=== PATIENT | female | born 1975 | race Caucasian/White ===

== ENCOUNTER 2019-12-10 08:32 | Outpatient (REF) | payer OTHER, SELFPAY ==
--- NOTE | 2019-12-10 | MM_ITS ---
EXAMINATION: MM SCREENING DIGITAL BREAST TOMOSYNTHESIS, BILATERAL CLINICAL INFORMATION: Screening. Asymptomatic. The lifetime risk of breast cancer based on the Tyrer-Cuzick Model is 7%. COMPARISON: Mammography: 10/31/2018, 10/20/2017, 10/16/2016 TECHNIQUE: Digital breast tomosynthesis is performed in both the craniocaudal and mediolateral oblique views along with computer-aided detection (CAD). Synthesized 2D images are generated from the tomosynthesis. Additional left MLO view is provided. FINDINGS: The breasts are heterogeneously dense, which may obscure small masses (ACR BI-RADS breast composition Category c). The breast tissue composition borders on average fibroglandular. Parenchymal pattern is similar to prior studies. There are no significant masses, abnormal calcifications, or other abnormalities. IMPRESSION: No mammographic evidence of malignancy. ASSESSMENT: BI-RADS 1: Negative RECOMMENDATION: Routine annual mammography screening. This patient's information was entered into a reminder system with a target due date for their next mammogram.
== END 2019-12-10 08:33 | disposition home or self-care (01) ==
LOC: HO.MAMMO 08:32
PROVIDERS: PCP Nurse Practitioner Family; Visit Provider Nurse Practitioner Family
DX: Z12.31 Encounter for screening mammogram for malignant neoplasm of breast (principal)
CPT/HCPCS: 77063; 77067

== ENCOUNTER 2019-12-12 12:29 | Outpatient (REF) | payer OTHER, SELFPAY ==
[2019-12-12 13:10] LABS: COVID-19 Test Negative (Negative)
== END 2019-12-12 12:30 | disposition home or self-care (01) ==
LOC: HO.LAB 12:29
PROVIDERS: Visit Provider Internal Medicine
DX: Z20.828 Contact with and (suspected) exposure to other viral communicable diseases (principal)
CPT/HCPCS: 87635

== ENCOUNTER 2020-01-09 11:04 | Outpatient (REF) | payer OTHER, SELFPAY ==
[2020-01-09 11:30] LABS: COVID-19 Test Negative (Negative)
== END 2020-01-09 11:05 | disposition home or self-care (01) ==
LOC: HO.LAB 11:04
PROVIDERS: Visit Provider Internal Medicine
DX: Z20.828 Contact with and (suspected) exposure to other viral communicable diseases (principal)
CPT/HCPCS: 87635; C9803

== ENCOUNTER 2020-01-13 07:49 | Outpatient (REF) | payer OTHER, SELFPAY ==
[2020-01-13 09:38] LABS: Basophils Percent Auto 0.6 % (0-2); Eosinophils Absolute Auto 0.1 X10*3/uL (0.0-0.4); Eosinophils Percent Auto 0.9 % (0-4); Hematocrit 45.3 % (37-47); Hemoglobin 14.4 g/dl (12.0-16.0); Imm Gran Abs Auto 0.02 X10*3/uL (0.00-0.03); Imm Gran Pct Auto 0.3 % (0.0-0.4); Lymphocytes Percent Auto 45.7 % (20-40); MANUAL DIFF FLAG NO; Mean Corpuscular HGB Conc 31.8 g/dl (31.0-35.0); Mean Corpuscular Hemoglobin 26.2 pg (27.0-33.0); Mean Corpuscular Volume 82.5 fL (80-98); Mean Platelet Volume 10.4 fL (9.4-12.3); Monocytes Absolute Auto 0.6 X10*3/uL (0.1-1.2); Monocytes Percent Auto 9.6 % (2-11); Neutrophils Absolute Auto 2.8 X10*3/uL (2.0-8.3); Neutrophils Percent Auto 42.9 % (45-73); Platelet Count 314 X10*3/uL (160-400); Red Blood Count 5.49 X10*6/uL (4.20-5.50); Red Cell Distribution Width 14.8 % (11.0-16.0); White Blood Count 6.5 X10*3/uL (4.8-10.8)
[2020-01-13 10:08] LABS: Alanine Aminotransferase 25 U/L (0-31); Albumin Level 4.2 g/dL (3.5-5.0); Aspartate Amino Transferase 18 U/L (5-31); C Reactive Protein 0.14 mg/dL (< or = 0.50); Estimated Glomerular Filt Rate > 60
[2020-01-13 11:23] LABS: Erythrocyte Sedimentation Rate 7 MM/HR (0-20)
[2020-01-16 10:57] LABS: TS Negative Control Passed; TS Panel A 0; TS Panel B 0; TS Positive Control Passed; TSpotTB Negative (SeeBelow)
== END 2020-01-13 07:50 | disposition home or self-care (01) ==
LOC: HO.LAB 07:49
PROVIDERS: PCP Nurse Practitioner Family; Visit Provider Internal Medicine Rheumatology
DX: M06.9 Rheumatoid arthritis, unspecified (principal); Z79.899 Other long term (current) drug therapy
CPT/HCPCS: 36415; 82040; 82565; 84450; 84460; 85025; 85652; 86140; 86481

== ENCOUNTER 2020-01-17 06:15 | Outpatient (REF) | payer OTHER, SELFPAY ==
--- NOTE | 2020-01-17 06:20 | XR_ITS ---
EXAMINATION: XR SHOULDER, RIGHT CLINICAL INFORMATION: Fracture COMPARISON: None TECHNIQUE: AP external rotation, Grashey, scapular Y, and axillary views of the right shoulder. FINDINGS: Bone alignment is normal. No fracture or dislocation is seen. The glenohumeral joint is normal. There is mild arthritis at the acromioclavicular joint. Soft tissues are unremarkable. XR/XR shoulder RT min 2V IMPRESSION: No fracture seen. Mild arthritis at the acromioclavicular joint.
== END 2020-01-17 06:16 | disposition home or self-care (01) ==
LOC: HO.XRAY 06:15
PROVIDERS: PCP Nurse Practitioner Family; Visit Provider Internal Medicine Rheumatology
DX: M19.011 Primary osteoarthritis, right shoulder (principal)
CPT/HCPCS: 73030

== ENCOUNTER 2020-01-22 08:06 | Outpatient (REF) | payer OTHER, SELFPAY ==
[2020-01-22 11:51] LABS: Estimated Average Glucose 128 mg/dL; Hemoglobin A1c % 6.1 %
[2020-01-22 12:08] LABS: Cholesterol 175 mg/dL; HDL Cholesterol 57 mg/dL; LDL Cholesterol Calculated 97 mg/dl; Triglycerides 106 mg/dL
== END 2020-01-22 08:07 | disposition home or self-care (01) ==
LOC: HO.HMGCLDS 08:06
PROVIDERS: PCP Nurse Practitioner Family; Visit Provider Nurse Practitioner Family
DX: E11.9 Type 2 diabetes mellitus without complications (principal)
CPT/HCPCS: 80061; 83036

== ENCOUNTER 2020-02-26 13:00 | Outpatient (REF) | payer OTHER, SELFPAY ==
[2020-02-26 13:17] LABS: COVID-19 Test Negative (Negative)
== END 2020-02-26 13:01 | disposition home or self-care (01) ==
LOC: HO.LAB 13:00
PROVIDERS: Visit Provider Internal Medicine
DX: Z20.828 Contact with and (suspected) exposure to other viral communicable diseases (principal)
CPT/HCPCS: 87635; C9803

== ENCOUNTER 2020-04-23 06:20 | Outpatient (REF) | payer OTHER, SELFPAY | END 2020-04-23 06:21 | disposition home or self-care (01) | LOC: HO.LABR 06:20 | PROVIDERS: PCP Nurse Practitioner Family; Visit Provider Internal Medicine Rheumatology | DX: Z13.89 Encounter for screening for other disorder (principal) ==

== ENCOUNTER 2020-04-30 11:00 | Outpatient (RCR) | payer OTHER, SELFPAY | END 2020-04-30 13:39 | disposition home or self-care (01) | LOC: HO.PT 11:00 | PROVIDERS: PCP Nurse Practitioner Family; Visit Provider Internal Medicine Rheumatology | DX: M75.41 Impingement syndrome of right shoulder (principal) | CPT/HCPCS: 97110; 97112; 97140; 97161; 97530 ==

== ENCOUNTER 2020-08-07 06:02 | Outpatient (REF) | payer OTHER, SELFPAY ==
[2020-08-07 07:39] LABS: MANUAL DIFF FLAG NO
[2020-08-07 07:43] LABS: Basophils Percent Auto 0.4 % (0-2); Eosinophils Absolute Auto 0.1 X10*3/uL (0.0-0.4); Eosinophils Percent Auto 1.5 % (0-4); Hematocrit 41.7 % (37-47); Hemoglobin 13.5 g/dl (12.0-16.0); Lymphocytes Absolute Auto 2.7 X10*3/uL (1.2-4.9); Lymphocytes Percent Auto 59.7 % (20-40); Mean Corpuscular HGB Conc 32.4 g/dl (31.0-35.0); Mean Corpuscular Hemoglobin 26.1 pg (27.0-33.0); Mean Corpuscular Volume 80.5 fL (80-98); Mean Platelet Volume 10.1 fL (9.4-12.3); Monocytes Absolute Auto 0.6 X10*3/uL (0.1-1.2); Monocytes Percent Auto 12.2 % (2-11); Neutrophils Absolute Auto 1.2 X10*3/uL (2.0-8.3); Neutrophils Percent Auto 26.2 % (45-73); Platelet Count 316 X10*3/uL (160-400); Red Blood Count 5.18 X10*6/uL (4.20-5.50); Red Cell Distribution Width 15.2 % (11.0-16.0); White Blood Count 4.5 X10*3/uL (4.8-10.8)
[2020-08-07 08:07] LABS: Alanine Aminotransferase 21 U/L (0-31); Aspartate Amino Transferase 18 U/L (5-31); C Reactive Protein 0.92 mg/dL (< or = 0.50); Estimated Glomerular Filt Rate > 60
[2020-08-07 08:22] LABS: Erythrocyte Sedimentation Rate 12 MM/HR (0-20)
== END 2020-08-07 06:03 | disposition home or self-care (01) ==
LOC: HO.LABR 06:02
PROVIDERS: PCP Nurse Practitioner Family; Visit Provider Internal Medicine Rheumatology
DX: M06.9 Rheumatoid arthritis, unspecified (principal); Z79.899 Other long term (current) drug therapy
CPT/HCPCS: 36415; 82565; 84450; 84460; 85025; 85652; 86140

== ENCOUNTER 2020-08-14 06:04 | Outpatient (REF) | payer OTHER, SELFPAY ==
[2020-08-14 08:07] LABS: Creatinine Urine 62.53 mg/dL; Microalbum/Creatinine Ratio Ur 11.1 ug/mg cr
[2020-08-14 08:24] LABS: Alanine Aminotransferase 31 U/L (0-31); Albumin Level 4.3 g/dL (3.5-5.0); Alkaline Phosphatase 77 U/L (39-117); Anion Gap 22 (12-20); Aspartate Amino Transferase 27 U/L (5-31); Bilirubin Total 0.3 mg/dL (0.0-1.0); Blood Urea Nitrogen 23 mg/dL (9-16); Carbon Dioxide 21 mmol/L (22-29); Chloride 101 mmol/L (96-108); Cholesterol 148 mg/dL; Estimated Glomerular Filt Rate > 60; Glucose Fasting 113 mg/dL (60-99); HDL Cholesterol 33 mg/dL; LDL Cholesterol Calculated 70 mg/dl; Potassium 4.6 mmol/L (3.3-5.1); Sodium 139 mmol/L (135-145); Total Protein 8.1 g/dL (6.5-8.0); Triglycerides 227 mg/dL
[2020-08-14 08:30] LABS: TSH reflex Free T4 1.03 uIU/mL (0.32-4.0)
== END 2020-08-14 06:05 | disposition home or self-care (01) ==
LOC: HO.LAB 06:04
PROVIDERS: PCP Nurse Practitioner Family; Visit Provider Nurse Practitioner Family
DX: E11.9 Type 2 diabetes mellitus without complications (principal)
CPT/HCPCS: 36415; 80053; 80061; 82043; 84443

== ENCOUNTER 2020-09-03 08:49 | Outpatient (REF) | payer OTHER, SELFPAY ==
[2020-09-03 10:17] LABS: Estimated Average Glucose 131 mg/dL; Hemoglobin A1c % 6.2 %
[2020-09-03 10:25] LABS: Alanine Aminotransferase 30 U/L (0-31); Albumin Level 4.3 g/dL (3.5-5.0); Alkaline Phosphatase 73 U/L (39-117); Anion Gap 18 (12-20); Aspartate Amino Transferase 21 U/L (5-31); Bilirubin Total 0.3 mg/dL (0.0-1.0); Blood Urea Nitrogen 19 mg/dL (9-16); Calcium 10.4 mg/dL (8.4-10.2); Carbon Dioxide 25 mmol/L (22-29); Chloride 100 mmol/L (96-108); Cholesterol 158 mg/dL; Estimated Glomerular Filt Rate > 60; Glucose Fasting 165 mg/dL (60-99); HDL Cholesterol 47 mg/dL; LDL Cholesterol Calculated 75 mg/dl; Potassium 4.5 mmol/L (3.3-5.1); Sodium 138 mmol/L (135-145); Total Protein 7.8 g/dL (6.5-8.0); Triglycerides 182 mg/dL
== END 2020-09-03 08:50 | disposition home or self-care (01) ==
LOC: HO.LAB 08:49
PROVIDERS: PCP Nurse Practitioner Family; Visit Provider Nurse Practitioner Family
DX: E11.9 Type 2 diabetes mellitus without complications (principal)
CPT/HCPCS: 36415; 80053; 80061; 83036

== ENCOUNTER 2020-09-28 05:59 | Outpatient (REF) | payer OTHER, SELFPAY ==
[2020-09-30 11:32] LABS: Calcium (PTHI) 9.8 mg/dL (8.6-10.2); PTHI 39 pg/mL (14-64)
[2020-09-30 12:11] LABS: Calcium, Ionized 5.4 mg/dL (4.8-5.6)
== END 2020-09-28 06:00 | disposition home or self-care (01) ==
LOC: HO.LAB 05:59
PROVIDERS: PCP Nurse Practitioner Family; Visit Provider Nurse Practitioner Family
DX: E83.52 Hypercalcemia (principal)
CPT/HCPCS: 36415; 82330; 83970

== ENCOUNTER 2020-11-04 05:30 | Outpatient (REF) | payer OTHER, SELFPAY ==
--- NOTE | ~2020-11-04 | XR_ITS ---
EXAMINATION: XR HAND, RIGHT XR HAND, LEFT CLINICAL INFORMATION: Rheumatoid arthritis. COMPARISON: Right and left hand radiographs dated 03/08/2011 TECHNIQUE: AP, oblique, and lateral views of the right and left hand. FINDINGS: RIGHT HAND: No acute fracture or dislocation. Normal carpal alignment. Joint space narrowing with small marginal osteophytes at the triscaphe and 1st carpometacarpal joints, new when compared to the prior examination. No new osseous erosion. No abnormal soft tissue calcification. No periarticular osteopenia. LEFT HAND: No acute fracture or dislocation. Normal carpal alignment. Joint space narrowing with tiny marginal osteophytes at the triscaphe and 1st carpometacarpal joints. Findings are new when compared to the prior examination. No new osseous erosion. No abnormal soft tissue calcification. No periarticular osteopenia. XR/XR hand LT min 3V IMPRESSION: RIGHT HAND: Mild osteoarthritis at the triscaphe and 1st carpometacarpal joints, new when compared to the prior examination. No new osseous erosion. LEFT HAND: Mild osteoarthritis at the triscaphe and 1st carpometacarpal joints, new when compared to the prior examination. No new osseous erosion.
--- NOTE | ~2020-11-04 | XR_ITS ---
EXAMINATION: XR HAND, RIGHT XR HAND, LEFT CLINICAL INFORMATION: Rheumatoid arthritis. COMPARISON: Right and left hand radiographs dated 03/08/2011 TECHNIQUE: AP, oblique, and lateral views of the right and left hand. FINDINGS: RIGHT HAND: No acute fracture or dislocation. Normal carpal alignment. Joint space narrowing with small marginal osteophytes at the triscaphe and 1st carpometacarpal joints, new when compared to the prior examination. No new osseous erosion. No abnormal soft tissue calcification. No periarticular osteopenia. LEFT HAND: No acute fracture or dislocation. Normal carpal alignment. Joint space narrowing with tiny marginal osteophytes at the triscaphe and 1st carpometacarpal joints. Findings are new when compared to the prior examination. No new osseous erosion. No abnormal soft tissue calcification. No periarticular osteopenia. XR/XR hand RT min 3V IMPRESSION: RIGHT HAND: Mild osteoarthritis at the triscaphe and 1st carpometacarpal joints, new when compared to the prior examination. No new osseous erosion. LEFT HAND: Mild osteoarthritis at the triscaphe and 1st carpometacarpal joints, new when compared to the prior examination. No new osseous erosion.
== END 2020-11-04 05:31 | disposition home or self-care (01) ==
LOC: HO.XRAY 05:30
PROVIDERS: PCP Nurse Practitioner Family; Visit Provider Internal Medicine Rheumatology
DX: M06.9 Rheumatoid arthritis, unspecified (principal)
CPT/HCPCS: 73130

== ENCOUNTER 2020-12-10 08:53 | Outpatient (REF) | payer OTHER, SELFPAY ==
--- NOTE | ~2020-12-10 | MM_ITS ---
EXAMINATION: MM SCREENING DIGITAL BREAST TOMOSYNTHESIS, BILATERAL CLINICAL INFORMATION: Screening. Asymptomatic. The lifetime risk of breast cancer based on the Tyrer-Cuzick Model is 8%. COMPARISON: Mammography: 12/10/2019, 10/31/2018, 10/20/2017 TECHNIQUE: Digital breast tomosynthesis is performed in both the craniocaudal and mediolateral oblique views along with computer-aided detection (CAD). Synthesized 2D images are generated from the tomosynthesis. Additional left MLO view is provided. FINDINGS: The breasts are heterogeneously dense, which may obscure small masses (ACR BI-RADS breast composition Category c). Parenchymal pattern is similar to prior exams. There are scattered stable parenchymal asymmetries similar to prior studies. There is no developing density. No interval mass or architectural abnormality or abnormal calcifications. No significant changes. MM/MM tomosynthesis screening BI IMPRESSION: No mammographic evidence of malignancy. ASSESSMENT: BI-RADS 2: Benign RECOMMENDATION: Routine annual mammography screening. This patient's information was entered into a reminder system with a target due date for their next mammogram.
== END 2020-12-10 08:54 | disposition home or self-care (01) ==
LOC: HO.MAMMO 08:53
PROVIDERS: Visit Provider Nurse Practitioner Family
DX: Z12.31 Encounter for screening mammogram for malignant neoplasm of breast (principal)
CPT/HCPCS: 77063; 77067

== ENCOUNTER 2021-01-08 | Outpatient (REF) | payer OTHER, SELFPAY ==
[2021-01-08 08:52] LABS: MANUAL DIFF FLAG NO
[2021-01-08 09:06] LABS: Basophils Percent Auto 0.5 % (0-2); Eosinophils Absolute Auto 0.1 X10*3/uL (0.0-0.4); Eosinophils Percent Auto 2.3 % (0-4); Hematocrit 43.1 % (37.0-47.0); Imm Gran Abs Auto 0.02 X10*3/uL (0.00-0.03); Imm Gran Pct Auto 0.3 % (0.0-0.4); Lymphocytes Absolute Auto 3.5 X10*3/uL (1.2-4.9); Lymphocytes Percent Auto 58.4 % (20-40); Mean Corpuscular HGB Conc 32.5 g/dl (31.0-35.0); Mean Corpuscular Hemoglobin 25.8 pg (27.0-33.0); Mean Corpuscular Volume 79.4 fL (80.0-98.0); Mean Platelet Volume 9.2 fL (9.4-12.3); Monocytes Absolute Auto 0.8 X10*3/uL (0.1-1.2); Monocytes Percent Auto 13.5 % (2-11); Neutrophils Absolute Auto 1.5 x10*3/uL (2.0-8.3); Platelet Count 311 X10*3/uL (160-400); Red Blood Count 5.43 X10*6/uL (4.20-5.50); Red Cell Distribution Width 15.8 % (11.0-16.0)
[2021-01-08 09:32] LABS: Alanine Aminotransferase 30 U/L (0-31); Albumin Level 4.1 g/dL (3.5-5.0); Aspartate Amino Transferase 19 U/L (5-31); C Reactive Protein 0.33 mg/dL (< or = 0.50); Estimated Glomerular Filt Rate > 60
[2021-01-08 10:05] LABS: Erythrocyte Sedimentation Rate 11 MM/HR (0-20)
== END 2021-01-08 00:01 | disposition home or self-care (01) ==
LOC: HO.LABR
PROVIDERS: PCP Nurse Practitioner Family; Visit Provider Internal Medicine Rheumatology
DX: M06.9 Rheumatoid arthritis, unspecified (principal); Z79.899 Other long term (current) drug therapy
CPT/HCPCS: 36415; 82040; 82565; 84450; 84460; 85025; 85652; 86140

== ENCOUNTER 2021-02-11 05:18 | Outpatient (REF) | payer OTHER, SELFPAY ==
[2021-02-11 05:42] LABS: COVID-19 Test Negative (Negative); IDNOW Serial# 9DD0AD1C
== END 2021-02-11 05:19 | disposition home or self-care (01) ==
LOC: HO.ED 05:18
PROVIDERS: Visit Provider Internal Medicine
DX: Z20.822 Contact with and (suspected) exposure to COVID-19 (principal)
CPT/HCPCS: 36415; 87635

== ENCOUNTER 2021-02-16 06:29 | Outpatient (REF) | payer OTHER, SELFPAY ==
[2021-02-16 07:00] LABS: COVID-19 Test Negative (Negative)
== END 2021-02-16 06:30 | disposition home or self-care (01) ==
LOC: HO.LAB 06:29
PROVIDERS: PCP Nurse Practitioner Family; Visit Provider Internal Medicine
DX: Z20.822 Contact with and (suspected) exposure to COVID-19 (principal)
CPT/HCPCS: 36415; 87635

== ENCOUNTER 2021-03-22 07:00 | Outpatient (RCR) | payer OTHER, SELFPAY | END 2021-04-02 13:08 | disposition home or self-care (01) | LOC: HO.PT 07:00 | PROVIDERS: Visit Provider Internal Medicine Rheumatology | DX: M25.511 Pain in right shoulder (principal) | CPT/HCPCS: 97110; 97140; 97161; 97530 ==

== ENCOUNTER 2021-04-02 16:31 | Outpatient (REF) | payer OTHER, SELFPAY ==
--- NOTE | ~2021-04-02 | MR_ITS ---
EXAMINATION: MR SHOULDER WITHOUT CONTRAST, RIGHT CLINICAL INFORMATION: Right shoulder pain. COMPARISON: 01/17/2020 TECHNIQUE: MRI of the shoulder without contrast was performed on a high-field scanner. FINDINGS: ROTATOR CUFF: There is mild supraspinatus tendinosis with a small 4 mm interstitial partial tear at the insertion with associated interstitial delamination. No appreciable extension to the articular or bursal laminae. Subscapularis and infraspinatus are intact. No muscle atrophy or fatty infiltration. BICEPS: Intra-articular portion of the biceps tendon appears disrupted with corresponding distal retraction off of the distal margin of the study. CORACOACROMIAL ARCH: The undersurface of the acromion is flat with a prominent anterior subacromial spur. Moderate acromioclavicular osteoarthritis. Small volume of fluid in subacromial-subdeltoid bursa is consistent with bursitis. LABRUM/CAPSULE: Joint capsule is thickened at the axillary pouch and rotator interval. There is loss of the normal subcoracoid fat. The coracohumeral ligament is thickened and edematous. Limited labrum is diminutive, likely due to a combination of normal variation and superimposed degeneration. No discrete tears. GLENOHUMERAL JOINT/MARROW: Small marginal osteophytes are present at the glenoid. There is mild non-uniform chondral thinning at both the glenoid and humeral head. No fracture or malalignment. MR/MR shoulder RT wo con IMPRESSION: 1. Complete tear of the long head of the biceps with distal retraction, possibly chronic. 2. Mild supraspinatus tendinosis with a small 4 mm interstitial partial tear. No appreciable surfacing rotator cuff tears. 3. Capsular thickening and edema at the glenohumeral joint, most notable at the rotator interval. Although not specific, this appearance can be seen with adhesive capsulitis. 4. Moderate acromioclavicular osteoarthritis. 5. An anterior subacromial spur and mild subacromial-subdeltoid bursitis as can be seen with subacromial impingement.
== END 2021-04-02 16:32 | disposition home or self-care (01) ==
LOC: HO.MRI 16:31
PROVIDERS: Visit Provider Nurse Practitioner Family
DX: M25.511 Pain in right shoulder (principal); M19.90 Unspecified osteoarthritis, unspecified site
CPT/HCPCS: 73221

== ENCOUNTER 2021-04-12 06:33 | Outpatient (REF) | payer OTHER, SELFPAY ==
[2021-04-12 06:47] LABS: MANUAL DIFF FLAG NO
[2021-04-12 07:28] LABS: Basophils Percent Auto 0.6 % (0-2); Eosinophils Absolute Auto 0.1 X10*3/uL (0.0-0.4); Eosinophils Percent Auto 1.3 % (0-4); Hematocrit 43.2 % (37.0-47.0); Hemoglobin 13.9 g/dl (12.0-16.0); Imm Gran Abs Auto 0.02 X10*3/uL (0.00-0.03); Imm Gran Pct Auto 0.4 % (0.0-0.4); Lymphocytes Absolute Auto 2.5 X10*3/uL (1.2-4.9); Mean Corpuscular HGB Conc 32.2 g/dl (31.0-35.0); Mean Corpuscular Volume 80.9 fL (80.0-98.0); Mean Platelet Volume 9.9 fL (9.4-12.3); Monocytes Absolute Auto 0.7 X10*3/uL (0.1-1.2); Monocytes Percent Auto 13.1 % (2-11); Neutrophils Absolute Auto 2.1 x10*3/uL (2.0-8.3); Neutrophils Percent Auto 38.6 % (45-73); Platelet Count 337 X10*3/uL (160-400); Red Blood Count 5.34 X10*6/uL (4.20-5.50); White Blood Count 5.4 X10*3/uL (4.8-10.8)
[2021-04-12 07:35] LABS: Estimated Average Glucose 131 mg/dL; Hemoglobin A1c % 6.2 %
[2021-04-12 07:51] LABS: Alanine Aminotransferase 24 U/L (0-31); Albumin Level 4.2 g/dL (3.5-5.0); Aspartate Amino Transferase 19 U/L (5-31); C Reactive Protein 0.33 mg/dL (< or = 0.50); Estimated Glomerular Filt Rate > 60
[2021-04-12 07:54] LABS: Alanine Aminotransferase 23 U/L (0-31); Albumin Level 4.1 g/dL (3.5-5.0); Alkaline Phosphatase 71 U/L (39-117); Anion Gap 13 (12-20); Aspartate Amino Transferase 19 U/L (5-31); Bilirubin Total 0.3 mg/dL (0.0-1.0); Blood Urea Nitrogen 16 mg/dL (9-16); Calcium 10.3 mg/dL (8.4-10.2); Carbon Dioxide 27 mmol/L (22-29); Chloride 102 mmol/L (96-108); Cholesterol 148 mg/dL; Estimated Glomerular Filt Rate > 60; Glucose Fasting 116 mg/dL (60-99); HDL Cholesterol 39 mg/dL; LDL Cholesterol Calculated 76 mg/dl; Potassium 4.4 mmol/L (3.3-5.1); Sodium 138 mmol/L (135-145); Total Protein 7.9 g/dL (6.5-8.0); Triglycerides 168 mg/dL
[2021-04-12 08:16] LABS: TSH reflex Free T4 1.92 uIU/mL (0.32-4.0)
[2021-04-12 08:30] LABS: Erythrocyte Sedimentation Rate 13 MM/HR (0-20)
[2021-04-12 08:39] LABS: Appearance Urine HAZY; Color Urine YELLOW; Glucose Urine UA >=1000 MG/DL (NEG); Leukocyte Esterase Urine NEG (NEG); Nitrite Urine POS (NEG); Specific Gravity - Urine >= 1.030 (1.005-1.025); UACC Culture Trigger YES; Urine Blood NEG (NEG); Urine Ketones NEG (NEG); Urine Protein NEG (NEG-TRACE)
[2021-04-12 09:10] LABS: RBC Urine 0-2 /HPF (0)
[2021-04-12 09:11] LABS: Bacteria Urine 3+ /LPF; Squamous Epithelial Cell Urine 2+ /LPF
== END 2021-04-12 06:34 | disposition home or self-care (01) ==
LOC: HO.LAB 06:33
PROVIDERS: Absent Provider Internal Medicine Rheumatology; PCP Nurse Practitioner Family; Visit Provider Nurse Practitioner Family
DX: M06.9 Rheumatoid arthritis, unspecified (principal); E11.9 Type 2 diabetes mellitus without complications; Z79.899 Other long term (current) drug therapy
CPT/HCPCS: 36415; 80053; 80061; 81001; 81003; 82040; 82565; 83036; 84443; 84450; 84460; 85025; 85652; 86140; 87086; 87088; 87186

== ENCOUNTER 2021-04-13 07:12 | Outpatient (REF) | payer OTHER, SELFPAY ==
--- NOTE | ~2021-04-13 | XR_ITS ---
EXAMINATION: XR SHOULDER, RIGHT CLINICAL INFORMATION: Shoulder pain. COMPARISON: MR shoulder 04/02/2021. TECHNIQUE: Three views of the right shoulder. FINDINGS: The bones and soft tissues are normal. No fracture. Glenohumeral and acromioclavicular alignment is anatomic. Some mild degenerative changes are present at the AC joint. No abnormal soft tissue calcifications. The extensive right shoulder disease seen on the very recent shoulder MRI cannot be appreciated on the plain films. XR/XR shoulder RT min 2V IMPRESSION: Acromioclavicular arthritis. The glenohumeral joint appears intact. Please see report of recent shoulder MR for the severe disease reported at that time.
== END 2021-04-13 07:13 | disposition home or self-care (01) ==
LOC: HO.HOSX 07:12
PROVIDERS: Visit Provider Physician Assistant
DX: M75.101 Unspecified rotator cuff tear or rupture of right shoulder, not specified as traumatic (principal)
CPT/HCPCS: 20610; 73030; J1040

== ENCOUNTER → 2021-04-15 11:02 | Outpatient (BNVA) | payer OTHER, SELFPAY | PROVIDERS: PCP Nurse Practitioner Family; Visit Provider Orthopaedic Surgery ==

== ENCOUNTER → 2021-07-16 11:12 | Outpatient (BNVA) | payer OTHER, SELFPAY | PROVIDERS: PCP Nurse Practitioner Family; Visit Provider Physician Assistant | DX: M75.101 Unspecified rotator cuff tear or rupture of right shoulder, not specified as traumatic (principal) ==

== ENCOUNTER 2021-07-21 06:42 | Day surgery (SDC) | payer OTHER, SELFPAY ==
[2021-07-16 12:16] VITALS: BMI 38.7
--- NOTE | 2021-07-20 07:59 | P.CONAN_ITS ---
Documented by User: Nataliia Mas NP 07/20/21 08:01 HPI - Anesthesia Eval Consult details Narrative: 46yo F for Right Shoulder Arthroscopy PMFSH Active Problems Active Problems: All Active Problems (Updated 06/24/21 @ 23:18 by Liliana Linares CNP) Wheezing (Acute) Upper respiratory infection (Acute) Painful arc syndrome of right shoulder (Acute) Osteoarthritis (Acute) Right shoulder pain (Acute) Skin pustule (Acute) Serum calcium elevated (Acute) Fungal dermatitis (Acute) Leukocytosis (Acute) Rheumatoid arthritis (Acute) Diabetes (Acute) Past Medical History Medical History (Updated 07/21/21 @ 07:14 by Ladonna Grewal RN) Dyslipidemia Ear infection Hidradenitis suppurativa HTN (hypertension) Lymphocytosis Osteoarthritis Rheumatoid arthritis Tinea unguium Family History Family History Father Colon cancer Diabetes mellitus HTN (hypertension) Mother Diabetes mellitus Daughter No problems noted. 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[facility] [place] Meds Allergies Allergy/AdvReac Type Severity Reaction Status Date / Time nut - unspecified [nut] Allergy Intermediate HIVES Verified 07/16/21 11:27 aspirin [ASPIRIN] Allergy Unknown ORAL Verified 07/16/21 11:27 HIVES, hives ibuprofen [IBUPROFEN] Allergy Unknown ORAL Verified 07/16/21 11:27 HIVES, hives peanut Allergy Unknown hives Verified 07/16/21 11:27 pineapple Allergy Unknown hioves Verified 07/16/21 11:27 tree nut Allergy Unknown hives Verified 07/16/21 11:27 lisinopril [LISINOPRIL] AdvReac Unknown DIFFICULTY Verified 07/16/21 11:27 BREATHING COUGH, cough methotrexate AdvReac Unknown LFTs Verified 07/16/21 11:27 elevated Home Medications Medication Instructions Recorded Confirmed Last Taken Type baclofen 5 mg tablet 5 mg PO DAILY PRN 01/22/20 07/15/21 Unknown History adalimumab 40 mg/0.4 mL 40 mg SUBCUT Q2W 11/12/20 07/15/21 Unknown History subcutaneous pen kit (Humira(CF) Pen) melatonin 5 mg tablet 5 mg PO BEDTIME 02/16/21 07/15/21 Unknown History Exam Exam Date and Time: July 20, 2021 0759 Height,Weight and Vital Signs: Height 5 ft 4 in Weight 102.512 kg Pertinent Lab Results Pertinent Lab Results: Laboratory Tests 04/12/21 04/12/21 06:45 06:45 WBC 5.4 Hgb 13.9 Hct 43.2 Plt Count 337 Sodium 138 Potassium 4.4 Chloride 102 Carbon Dioxide 27 BUN 16 Creatinine 0.78 Assessment and Plan Assessment Anesthesia Assessment: Chart Reviewed Documented by User: Ashish Vásquez MD 07/21/21 17:39 HPI - Anesthesia Eval Consult details Narrative: 46yo F for Right Shoulder Arthroscopy recent ear infection [facility] Past Medical History Medical History (Updated 07/21/21 @ 07:14 by Ladonna Grewal RN) Dyslipidemia Ear infection Hidradenitis suppurativa HTN (hypertension) Lymphocytosis Osteoarthritis Rheumatoid arthritis Tinea unguium Family History Family History Father Colon cancer Diabetes mellitus HTN (hypertension) Mother Diabetes mellitus Daughter No problems noted. Other Substance use disorder Family history of problems with anesthesia: No Surgical History Surgical History H/O total hysterectomy with bilateral salpingo-oophorectomy (BSO) History of axillary surgery History of section History of endometrial biopsy History of Problems with Anesthesia: No Social History Social History Housing: House Alcohol intake: current Alcohol intake frequency: holidays/special occasions only Patient Tobacco Use Status: Current everyday Tobacco user Cigarettes Per Day: 4 Years Smoked: 15 years old e-Cigarette/Vaping Use: Never Used Current occupational status: employed 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[employer] [place] Meds Allergies Allergy/AdvReac Type Severity Reaction Status Date / Time nut - unspecified [nut] Allergy Intermediate HIVES Verified 07/16/21 11:27 aspirin [ASPIRIN] Allergy Unknown ORAL Verified 07/16/21 11:27 HIVES, hives ibuprofen [IBUPROFEN] Allergy Unknown ORAL Verified 07/16/21 11:27 HIVES, hives peanut Allergy Unknown hives Verified 07/16/21 11:27 pineapple Allergy Unknown hioves Verified 07/16/21 11:27 tree nut Allergy Unknown hives Verified 07/16/21 11:27 lisinopril [LISINOPRIL] AdvReac Unknown DIFFICULTY Verified 07/16/21 11:27 BREATHING COUGH, cough methotrexate AdvReac Unknown LFTs Verified 07/16/21 11:27 elevated Home Medications Medication Instructions Recorded Confirmed Last Taken Type baclofen 5 mg tablet 5 mg PO DAILY PRN 01/22/20 07/15/21 Unknown History adalimumab 40 mg/0.4 mL 40 mg SUBCUT Q2W 11/12/20 07/15/21 Unknown History subcutaneous pen kit (Humira(CF) Pen) melatonin 5 mg tablet 5 mg PO BEDTIME 02/16/21 07/15/21 Unknown History Exam Airway Mallampati Class: II TM Dist: >3cm Neck ROM: Full Loose/Missing/Broken Teeth: Yes (Poor dentition ) Heart: s1 , S2 Lungs: b/l breath sounds Assessment and Plan Assessment Anesthesia Assessment: Anesthesia Plan Discussed Final Anesthetic Review Family History of Problems with Anesthesia: No History of Problems with Anesthesia: No NPO: Yes ASA Class: II Final Preanesthetic Review: Meds/Allgs Chart Reviewed, Consent Obtained/Reviewed and Anes Risks/Benef Reviewed Patient Risk: Intermediate Procedure Risk: Intermediate Anesthetic Plan Anesthetic Plan: GA and Regional Block Disposition: Standard PACU
[2021-07-21] VITALS (8 sets, daily range): BP systolic 104–138; BP diastolic 60–99; PULSE 89–96; RESP 12–18; TEMP 36.1–36.6; O2SAT 94–99
[2021-07-21 07:02] LABS: Glucose, Whole Blood 129 mg/dL (60-115)
[2021-07-21] MEDS: Lactated Ringers 1,000 ML 100 ML IVCONT (07:25)
--- NOTE | 2021-07-21 08:40 | PC.NURSE ---
regional block iniated by anesthesia pt tolerated well timeout complted prior
--- NOTE | 2021-07-21 10:45 | PM.OP ---
Brief Operative Note Date of Service: 07/21/21 Pre-op diagnosis: right shoulder biceps tear with partial thickness rtc tear Post-op diagnosis: other (tear subscapularis, labral tear, sub acromial impingement, ACJ OA) Procedure: right shoulder with repair subscapularis, labral debridement, sub acromial decompression and distal clavicle excision Implants: [employer] and Nephew knotless raptor 5.0 Surgeon: Misbah Stratton MD Anesthesia: GETA and regional Was an Clinic Assistant used for this Procedure?: Yes Clinic Assistant: Inna Hopson Estimated blood loss (mL): 20 IV fluids (mL): 800 Pathology: none sent Condition: stable Disposition: PACU
--- NOTE | 2021-07-23 15:28 | W.PM.OPN ---
Operative Note Operative Note Date of Service: 07/21/21 Narrative: Date of Service: 07/21/21 Pre-op diagnosis: right shoulder biceps tear with partial thickness rtc tear Post-op diagnosis: other (tear subscapularis, labral tear, sub acromial impingement, ACJ OA) Procedure: right shoulder with repair subscapularis, labral debridement, sub acromial decompression and distal clavicle excision Implants: Pisano and Nephew knotless raptor 5.0 Surgeon: Misbah Stratton MD Anesthesia: GETA and regional Was an Enterprise Application Architect used for this Procedure?: Yes Enterprise Application Architect: Inna Hopson Estimated blood loss (mL): 20 IV fluids (mL): 800 Pathology: none sent Condition: stable Disposition: PACU Procedure in detail: Patient was brought to the operating room and placed the the beach chair position. All bony prominences were well padded and the limb was prepped and draped in standard sterile fashion. A time out was called to identify proper site, proper procedure and proper surgeon. IV antibiotics per weight were administered. I began by making a posterolateral stab incision with a 15 blade. A blunt trochar was placed into the glenohumeral joint and I insufflated the joint with saline and a 30 degree arthroscope was placed. I established an outside- in anterior portal just distal to the biceps tendon. I then began my inspection of the glenohumeral joint. The joint was then examined. There was synovitis of the anterior interval and an intact undersurface of the rotator cuff with a small loose body in the inferior gutter. There was a high-grade partial tear of the humeral insertion of the subscapularis. There was a circumferential labral fraying and a absent biceps tendon. I debrided the bed of the subscapularis and then placed 3 looped sutures through the retracted and was able to reduce this to its insertion with a single 5 point of 0 not less suture anchor (Pisano and Nephew). I debrided the labrum circumferentially and then turned my attention to the subacromial space. I then removed the trochar and entered the subacromial space. A direct lateral portal was then established and I performed a bursectomy. The cuff was then examined. There was bursitis of the subacromial space with subacromial spurring. A 5 mm subacromial decompression was performed via lateral portal and this was followed by a 5 mm distal clavicle excision via an anterior portal. Once I was happy with the extent of decompression and distal clavicle excision my final photographs were taken. All instrumentation was then removed portals were closed with nylon. Patient was placed in a sterile dressing extubated brought to the recovery room stable condition. There were no known complications.
== END 2021-07-21 10:30 | disposition home or self-care (01) ==
PROVIDERS: PCP Nurse Practitioner Family; Visit Provider Orthopaedic Surgery
PROC: (CPT 29805; principal; 2021-07-21 08:40)
DX: M75.101 Unspecified rotator cuff tear or rupture of right shoulder, not specified as traumatic (principal); M75.41 Impingement syndrome of right shoulder; M19.011 Primary osteoarthritis, right shoulder; M06.9 Rheumatoid arthritis, unspecified; I10 Essential (primary) hypertension; E78.5 Hyperlipidemia, unspecified; D72.820 Lymphocytosis (symptomatic); B36.9 Superficial mycosis, unspecified; B35.1 Tinea unguium; E11.9 Type 2 diabetes mellitus without complications; Z79.899 Other long term (current) drug therapy; Z88.8 Allergy status to other drugs, medicaments and biological substances; F17.210 Nicotine dependence, cigarettes, uncomplicated
CPT/HCPCS: 29827; 29826; 29824; 29822; 82947; C1713; J0171; J0690; J1100; J2250; J2370; J2405; J2795; J3010

== ENCOUNTER → 2021-07-29 14:19 | Outpatient (BNVA) | payer OTHER, SELFPAY | PROVIDERS: PCP Nurse Practitioner Family; Visit Provider Orthopaedic Surgery | DX: Z13.89 Encounter for screening for other disorder (principal) ==

== ENCOUNTER 2021-09-11 15:27 | Outpatient (REF) | payer OTHER, SELFPAY ==
[2021-09-11 16:20] LABS: Influenza A PCR NEGATIVE (Negative); Influenza B PCR NEGATIVE (Negative); Resp Syncy Virus RNA Qual PCR NEGATIVE (Negative); SARS COV2 PCR INHOUSE NEGATIVE (Negative)
== END 2021-09-11 15:28 | disposition home or self-care (01) ==
LOC: HO.LNP 15:27
PROVIDERS: Visit Provider Physician Assistant Medical
DX: Z20.822 Contact with and (suspected) exposure to COVID-19 (principal); R05.9 Cough, unspecified
CPT/HCPCS: 0241U

== ENCOUNTER 2021-10-11 09:07 | Outpatient (REF) | payer OTHER, SELFPAY ==
[2021-10-11 09:28] LABS: MANUAL DIFF FLAG NO
[2021-10-11 10:07] LABS: Basophils Percent Auto 0.5 % (0-2); Eosinophils Absolute Auto 0.1 X10*3/uL (0.0-0.4); Eosinophils Percent Auto 0.9 % (0-4); Hematocrit 44.6 % (37.0-47.0); Hemoglobin 13.9 g/dl (12.0-16.0); Imm Gran Abs Auto 0.04 X10*3/uL (0.00-0.03); Imm Gran Pct Auto 0.6 % (0.0-0.4); Lymphocytes Absolute Auto 3.4 X10*3/uL (1.2-4.9); Lymphocytes Percent Auto 52.2 % (20-40); Mean Corpuscular HGB Conc 31.2 g/dl (31.0-35.0); Mean Corpuscular Hemoglobin 24.2 pg (27.0-33.0); Mean Corpuscular Volume 77.7 fL (80.0-98.0); Mean Platelet Volume 9.9 fL (9.4-12.3); Monocytes Absolute Auto 0.9 X10*3/uL (0.1-1.2); Monocytes Percent Auto 14.3 % (2-11); Neutrophils Absolute Auto 2.1 x10*3/uL (2.0-8.3); Neutrophils Percent Auto 31.5 % (45-73); Platelet Count 340 X10*3/uL (160-400); Red Blood Count 5.74 X10*6/uL (4.20-5.50); Red Cell Distribution Width 16.7 % (11.0-16.0); White Blood Count 6.6 X10*3/uL (4.8-10.8)
[2021-10-11 10:22] LABS: Alanine Aminotransferase 30 U/L (0-31); Albumin Level 4.1 g/dL (3.5-5.0); Aspartate Amino Transferase 21 U/L (5-31); C Reactive Protein 0.34 mg/dL (< or = 0.50); Estimated Glomerular Filt Rate > 60
[2021-10-11 11:34] LABS: Erythrocyte Sedimentation Rate 7 MM/HR (0-20)
== END 2021-10-11 09:08 | disposition home or self-care (01) ==
LOC: HO.LABR 09:07
PROVIDERS: PCP Nurse Practitioner Family; Visit Provider Internal Medicine Rheumatology
DX: M06.9 Rheumatoid arthritis, unspecified (principal); Z79.899 Other long term (current) drug therapy
CPT/HCPCS: 36415; 82040; 82565; 84450; 84460; 85025; 85652; 86140

== ENCOUNTER 2021-12-08 07:00 | Outpatient (RCR) | payer OTHER, SELFPAY ==
--- NOTE | 2021-07-29 15:39 | MHC.PT.EP ---
[facility] [place] Office [place] Office [place] Office [address] Troy Watters [address] [phone] F: [phone] F: [phone] F: [phone] F: [phone] Physical Therapy Plan of Care Date of Evaluation: Date of Surgery: 07/21/21 Diagnosis: R subscap repair, labral debridement, SAD, distal clavicle excision on 07/21/21 Assessment: pt presents to physical therapy with pain, decreased range of motion, decreased strength, impaired functional mobility, impaired postural awareness, and gait deviations. pt is a good candidate for skilled PT due to age, potential remediation of impairments, typical disease/condition progression and prognosis, comorbidities, and motivation. pt would benefit from tailored strengthening and stretching exercise program, functional training, gait training, postural re-training, neuromuscular re-education, modalities as needed for pain, equipment safety demonstration. Frequency and Duration: The patient will be seen 2x/wk for 16 wks Short Term Goals: pt will be I w/ HEP to promote self-management of post-operative status. pt will be mod I w/ donning/doffing sling to promote optimal healing and joint protection following post-operative state. pt will improve R shoulder ER PROM at neutral to at least 25* to progress per protocol. Shelter Goals: pt will improve R shoulder strength to at least 4/5 in flexion and abduction to promote ease for reaching objects on higher shelves. pt will report a statistically significant improvement in self-reported outcome measure, SPADI, to promote return to PLOF. pt will lift and carry 10# object by her side 4 x 20' to promote return to carrying groceries. Treatment Plan: Modalities to reduce pain, spasms and effusion. Manual therapy to restore motion and function. Therapeutic exercise to improve strength and flexibility. Neuromuscular re-education for posture and balance. Therapeutic activities to return to functional activities of daily living. Electronically signed by: Sravani Mccullough PT, DPT Please sign and return to therapist. Thank you for your referral.
--- NOTE | 2021-12-08 08:07 | MHC.PT.DC ---
[facility] [place] Office [place] Office [place] Office [address] Troy Watters [address] [phone] F: [phone] F: [phone] F: [phone] F: [phone] Physical Therapy Discharge Report Diagnosis: R subscap repair, labral debridement, SAD, distal clavicle excision on 07/21/21 Date of Surgery: 07/21/21 Date of Evaluation: 07/29/21 Date of Discharge: 12/08/21 Treatments to Date: 23 Cancellations to Date: 11 No Shows to Date: 0 Discharge Status: Achieved Goals Improved Function Independent with HEP Discharge Summary: AT 20 WKS POST OP -Pt HAS MET HER PT GOALS , ULTIMATELY OF DONNING/DOFFING HER BRA POSTERIORLY- SHE HAS RESUMED REG ADLs AND WORK TASKS AND HAS REMAINED SX FREE IN Rt SH; WFL STRENGTH AND AROM Rt UE, APPROP POSTURAL AWARENESS AND SELF-CORRECTION, AND SHE IS MOTIVATED AND COMPLIANT W HEP. HER SPADI SCORE WAS 4/130 AT D/C. Electronically signed by: FRANCISCO JAVIER JURADO,PT Please sign and return to therapist. Thank you for your referral.
== END 2021-12-08 08:07 | disposition home or self-care (01) ==
LOC: HO.PT 07:00
PROVIDERS: Visit Provider Physician Assistant
DX: M75.101 Unspecified rotator cuff tear or rupture of right shoulder, not specified as traumatic (principal)
CPT/HCPCS: 97110; 97140; 97161; 97530

== ENCOUNTER 2021-12-23 07:45 | Outpatient (REF) | payer OTHER, SELFPAY ==
--- NOTE | ~2021-12-23 | MM_ITS ---
EXAMINATION: MM SCREENING DIGITAL BREAST TOMOSYNTHESIS, BILATERAL CLINICAL INFORMATION: Screening. Asymptomatic. The lifetime risk of breast cancer based on the Tyrer-Cuzick Model is 8.3%. COMPARISON: Mammography: December 10, 2020 and studies dating back to September 08, 2015 TECHNIQUE: Digital breast tomosynthesis is performed in both the craniocaudal and mediolateral oblique views along with computer-aided detection (CAD). Synthesized 2D images are generated from the tomosynthesis. FINDINGS: There are scattered areas of fibroglandular density (ACR BI-RADS breast composition Category b). There are no significant masses, abnormal calcifications, or other abnormalities. MM/MM tomosynthesis screening BI IMPRESSION: No significant changes from prior exam. ASSESSMENT: BI-RADS 1: Negative RECOMMENDATION: Routine annual mammography screening. This patient's information was entered into a reminder system with a target due date for their next mammogram.
== END 2021-12-23 07:46 | disposition home or self-care (01) ==
LOC: HO.MAMMO 07:45
PROVIDERS: PCP Nurse Practitioner Family; Visit Provider Nurse Practitioner Family
DX: Z12.31 Encounter for screening mammogram for malignant neoplasm of breast (principal)
CPT/HCPCS: 77063; 77067

== ENCOUNTER 2022-03-02 06:02 | Outpatient (REF) | payer OTHER, SELFPAY ==
[2022-03-02 06:26] LABS: MANUAL DIFF FLAG NO
[2022-03-02 07:37] LABS: Basophils Percent Auto 0.7 % (0-2); Eosinophils Absolute Auto 0.1 X10*3/uL (0.0-0.4); Eosinophils Percent Auto 0.9 % (0-4); Hematocrit 42.7 % (37.0-47.0); Hemoglobin 13.6 g/dl (12.0-16.0); Imm Gran Abs Auto 0.03 X10*3/uL (0.00-0.03); Imm Gran Pct Auto 0.5 % (0.0-0.4); Lymphocytes Absolute Auto 2.6 X10*3/uL (1.2-4.9); Lymphocytes Percent Auto 45.2 % (20-40); Mean Corpuscular HGB Conc 31.9 g/dl (31.0-35.0); Mean Corpuscular Hemoglobin 25.4 pg (27.0-33.0); Mean Corpuscular Volume 79.8 fL (80.0-98.0); Mean Platelet Volume 9.9 fL (9.4-12.3); Monocytes Absolute Auto 1.1 X10*3/uL (0.1-1.2); Monocytes Percent Auto 18.6 % (2-11); Neutrophils Absolute Auto 1.9 x10*3/uL (2.0-8.3); Neutrophils Percent Auto 34.1 % (45-73); Platelet Count 264 X10*3/uL (160-400); Red Blood Count 5.35 X10*6/uL (4.20-5.50); Red Cell Distribution Width 15.8 % (11.0-16.0); White Blood Count 5.7 X10*3/uL (4.8-10.8)
[2022-03-02 07:56] LABS: Alanine Aminotransferase 33 U/L (0-31); Albumin Level 4.1 g/dL (3.5-5.0); Aspartate Amino Transferase 25 U/L (5-31); C Reactive Protein 1.27 mg/dL (< or = 0.50); Estimated Glomerular Filt Rate > 60
[2022-03-02 08:23] LABS: Erythrocyte Sedimentation Rate 33 MM/HR (0-20)
== END 2022-03-02 06:03 | disposition home or self-care (01) ==
LOC: HO.LABR 06:02
PROVIDERS: PCP Nurse Practitioner Family; Visit Provider Internal Medicine Rheumatology
DX: M06.9 Rheumatoid arthritis, unspecified (principal); Z79.899 Other long term (current) drug therapy
CPT/HCPCS: 36415; 82040; 82565; 84450; 84460; 85025; 85652; 86140

== ENCOUNTER 2022-06-30 09:23 | Outpatient (REF) | payer OTHER, SELFPAY ==
[2022-06-30 10:25] LABS: Basophils Percent Auto 0.9 % (0-2); Eosinophils Percent Auto 0.9 % (0-4); Hematocrit 42.1 % (37.0-47.0); Hemoglobin 13.4 g/dl (12.0-16.0); Imm Gran Abs Auto 0.01 X10*3/uL (0.00-0.03); Imm Gran Pct Auto 0.3 % (0.0-0.4); Lymphocytes Absolute Auto 2.2 X10*3/uL (1.2-4.9); Lymphocytes Percent Auto 61.3 % (20-40); MANUAL DIFF FLAG SCAN; Mean Corpuscular HGB Conc 31.8 g/dl (31.0-35.0); Mean Corpuscular Hemoglobin 25.3 pg (27.0-33.0); Mean Corpuscular Volume 79.4 fL (80.0-98.0); Mean Platelet Volume 9.4 fL (9.4-12.3); Monocytes Absolute Auto 0.7 X10*3/uL (0.1-1.2); Monocytes Percent Auto 20.2 % (2-11); Neutrophils Absolute Auto 0.6 x10*3/uL (2.0-8.3); Neutrophils Percent Auto 16.4 % (45-73); Platelet Count 273 X10*3/uL (160-400); Red Cell Distribution Width 18.1 % (11.0-16.0); SCAN SMEAR FLAG 1; White Blood Count 3.5 X10*3/uL (4.8-10.8)
[2022-06-30 11:03] LABS: SLIDE REVIEW VERIFIED
[2022-06-30 11:09] LABS: Erythrocyte Sedimentation Rate 25 MM/HR (0-20)
[2022-06-30 11:11] LABS: Appearance Urine Cloudy; Color Urine Yellow; Glucose Urine UA >=1000 mg/dL (Negative); Leukocyte Esterase Urine Negative (Negative); Nitrite Urine Negative (Negative); Specific Gravity - Urine >= 1.030 (1.005-1.025); UMIC TRIGGER UACC YES; Urine Blood Negative (Negative); Urine Ketones Trace mg/dL (Negative); Urine Protein Trace mg/dL (Neg-Trace)
[2022-06-30 11:19] LABS: C Reactive Protein 0.32 mg/dL (< or = 0.50)
[2022-06-30 11:38] LABS: Alanine Aminotransferase 26 U/L (0-31); Albumin Level 4.1 g/dL (3.5-5.0); Alkaline Phosphatase 81 U/L (39-117); Anion Gap 13 (12-20); Aspartate Amino Transferase 21 U/L (5-31); Bilirubin Total 0.4 mg/dL (0.0-1.0); Blood Urea Nitrogen 16 mg/dL (9-16); Calcium 9.9 mg/dL (8.4-10.2); Carbon Dioxide 25 mmol/L (22-29); Chloride 106 mmol/L (96-108); Cholesterol 148 mg/dL; Estimated Glomerular Filt Rate > 60; Glucose Fasting 122 mg/dL (60-99); HDL Cholesterol 38 mg/dL; LDL Cholesterol Calculated 73 mg/dl; Potassium 4.1 mmol/L (3.3-5.1); Sodium 140 mmol/L (135-145); TSH reflex Free T4 1.36 uIU/mL (0.32-4.0); Total Protein 8.4 g/dL (6.5-8.0); Triglycerides 187 mg/dL
[2022-06-30 11:46] LABS: Bacteria Urine 4+ (None Seen); Hyaline Casts Urine 0-2 /LPF (0-2); WBC Urine 0-5 /HPF (0-5)
[2022-06-30 12:13] LABS: Creatinine Urine 112.07 mg/dL; Microalbum/Creatinine Ratio Ur 28.5 ug/mg cr
== END 2022-06-30 09:24 | disposition home or self-care (01) ==
LOC: HO.LAB 09:23
PROVIDERS: Internal Medicine Rheumatology; PCP Nurse Practitioner Family; Visit Provider Nurse Practitioner Family
DX: Z00.00 Encounter for general adult medical examination without abnormal findings (principal); E11.9 Type 2 diabetes mellitus without complications; M06.9 Rheumatoid arthritis, unspecified; Z79.899 Other long term (current) drug therapy
CPT/HCPCS: 36415; 80053; 80061; 81001; 81003; 82043; 84153; 84443; 85025; 85652; 86140

== ENCOUNTER 2022-07-19 07:16 | Outpatient (REF) | payer OTHER, SELFPAY ==
[2022-07-19 08:28] LABS: Basophils Percent Auto 0.8 % (0-2); Eosinophils Absolute Auto 0.1 X10*3/uL (0.0-0.4); Eosinophils Percent Auto 1.5 % (0-4); Hematocrit 43.3 % (37.0-47.0); Hemoglobin 13.5 g/dl (12.0-16.0); Imm Gran Abs Auto 0.01 X10*3/uL (0.00-0.03); Imm Gran Pct Auto 0.3 % (0.0-0.4); Lymphocytes Absolute Auto 2.5 X10*3/uL (1.2-4.9); Lymphocytes Percent Auto 63.2 % (20-40); MANUAL DIFF FLAG SCAN; Mean Corpuscular HGB Conc 31.2 g/dl (31.0-35.0); Mean Corpuscular Hemoglobin 25.3 pg (27.0-33.0); Mean Corpuscular Volume 81.2 fL (80.0-98.0); Mean Platelet Volume 10.2 fL (9.4-12.3); Monocytes Absolute Auto 0.8 X10*3/uL (0.1-1.2); Monocytes Percent Auto 20.1 % (2-11); Neutrophils Absolute Auto 0.6 x10*3/uL (2.0-8.3); Neutrophils Percent Auto 14.1 % (45-73); Platelet Count 244 X10*3/uL (160-400); Red Blood Count 5.33 X10*6/uL (4.20-5.50); Red Cell Distribution Width 17.5 % (11.0-16.0); SCAN SMEAR FLAG 1
[2022-07-19 08:53] LABS: SLIDE REVIEW VERIFIED
== END 2022-07-19 07:17 | disposition home or self-care (01) ==
LOC: HO.LAB 07:16
PROVIDERS: PCP Nurse Practitioner Family; Visit Provider Nurse Practitioner Family
DX: D72.819 Decreased white blood cell count, unspecified (principal)
CPT/HCPCS: 36415; 85025

== ENCOUNTER 2022-08-09 10:48 | Outpatient (REF) | payer OTHER, SELFPAY ==
[2022-08-09 16:00] LABS: Appearance Urine Clear; Color Urine Yellow; Glucose Urine UA >=1000 mg/dL (Negative); Leukocyte Esterase Urine Negative (Negative); Nitrite Urine Negative (Negative); PH 5.5 (5.0-9.0); Specific Gravity - Urine >= 1.030 (1.005-1.025); UMIC TRIGGER UACC YES; Urine Blood Negative (Negative); Urine Ketones 15 mg/dL (Negative); Urine Protein Negative (Neg-Trace)
[2022-08-09 16:16] LABS: Bacteria Urine None Seen (None Seen); Hyaline Casts Urine 0-2 /LPF (0-2); RBC Urine 0-2 /HPF (0-2); UACC Culture Trigger YES
[2022-08-10 07:35] LABS: HBS Num1 11.16 mIU/mL (0-7.99)
[2022-08-10 09:35] LABS: HBS Num2 11.01 mIU/mL (0-7.99); HBS Num3 11.48 mIU/mL (0-7.99); ~Hepatitis B Surface Antibody GRAYZONE (Nonreactive)
[2022-08-11 23:38] LABS: TS Negative Control Passed; TS Panel A 1; TS Panel B 0; TS Positive Control Passed; TSpotTB Negative (Negative)
[2022-08-13 15:23] LABS: Rubella IgG Antibody 2.77 Index
== END 2022-08-09 10:49 | disposition home or self-care (01) ==
LOC: HO.LAB 10:48
PROVIDERS: PCP Nurse Practitioner Family; Visit Provider Nurse Practitioner Family
DX: Z11.1 Encounter for screening for respiratory tuberculosis (principal); Z78.9 Other specified health status; R82.90 Unspecified abnormal findings in urine
CPT/HCPCS: 36415; 81001; 81003; 86481; 86706; 86735; 86762; 86765; 86787; 87086

== ENCOUNTER 2022-08-22 21:33 | Emergency (ER) | payer OTHER, SELFPAY ==
[2022-08-22 21:36] VITALS: BP 155/90; PULSE 89; RESP 19; TEMP 36.3; O2SAT 98; BMI 37.8
[2022-08-22 22:00] VITALS: BP 158/88; PULSE 87; RESP 18; O2SAT 98
--- NOTE | 2022-08-22 22:24 | PC.NURSE ---
pt ambulatory to exam room. sts that she has had right shoulder pain frequently for the last 4 days. pt has tried aspercreme with lidocaine, APAP, and heat with minimal relief. pt does have a surgical history of rotator cuff repair that was done at [facility] [place]. pt sts that she came to the department today because she has not slept in the past 4 days. pt sts that she has tried heat packs to the affected area, however when she applies them, the weight increases her pain. call ni within reach
[2022-08-23] VITALS: BP 160/82; PULSE 84; RESP 18
--- NOTE | 2022-08-23 01:11 | ED.GENADULT ---
HPI - General Adult General Chief complaint: General Medical Stated complaint: sharp pain back of head/neck Time Seen by Provider: 08/23/22 00:16 Source: patient, RN notes reviewed and old records reviewed Mode of arrival: ambulatory Limitations: no limitations History of Present Illness HPI narrative: 47-year-old female presents for evaluation of right lateral neck pain. Patient reports that she woke up the pain 4 days ago. She reports sleeping with 2 pillows at a time. She denies any trauma, fall, lifting or injury. She states her pain is worse with turning her head to the left. Denies any headaches, fevers, chills. She has been taking Tylenol with minimal relief Related Data Home Medications Medication Instructions Recorded Confirmed adalimumab 40 mg/0.4 mL 40 mg subcut Q2W 11/12/20 08/02/22 subcutaneous pen kit (Humira(CF) Pen) melatonin 5 mg tablet 5 mg PO BEDTIME 02/16/21 08/02/22 Previous Rx's Medication Instructions Recorded ketoconazole 2 % topical cream 1 appl topical BID #60 grams 05/11/20 albuterol sulfate 90 mcg/actuation 1 inh inhalation QID PRN shortness 09/11/21 aerosol inhaler of breath or wheezing #6.7 grams clonazepam 0.5 mg tablet (Klonopin) 0.25 mg PO DAILY PRN anxiety 07/13/22 attacks 30 days #15 tabs atorvastatin 40 mg tablet 40 mg PO DAILY #90 tabs 07/26/22 bupropion HCl 300 mg 24 hr tablet, 300 mg PO DAILY #90 tabs 07/26/22 extended release dulaglutide 1.5 mg/0.5 mL 1.5 mg (0.5 mL) subcut QWEEK #6 mL 07/26/22 subcutaneous pen injector (Trulicity) empagliflozin 25 mg tablet 25 mg PO DAILY #90 tabs 07/26/22 (Jardiance) irbesartan 150 mg tablet 300 mg PO DAILY #180 tabs 07/26/22 metformin 500 mg tablet,extended 1,000 mg PO BID #360 tabs 07/26/22 release 24 hr amoxicillin 875 mg-potassium 1 tab PO Q12H 10 days #20 tabs 08/02/22 clavulanate 125 mg tablet prednisone 50 mg tablet 50 mg PO DAILY 6 days #6 tabs 08/02/22 codeine 10 mg-guaifenesin 100 mg/5 5 ml PO BEDTIME PRN cold symptoms 08/03/22 mL oral liquid 10 days #118 mL prednisone 10 mg tablet 10 mg PO DAILY 21 days #65 tabs 08/08/22 chlorthalidone 25 mg tablet 25 mg PO QAM #90 tabs 08/09/22 ergocalciferol (vitamin D2) 1,250 1,250 mcg PO QWEEK #13 caps 08/11/22 mcg (50,000 unit) capsule methocarbamol 500 mg tablet 500 mg PO QID PRN muscle spam #20 08/23/22 tabs Allergies Allergy/AdvReac Type Severity Reaction Status Date / Time nut - unspecified [nut] Allergy Intermediate HIVES Verified 08/22/22 21:36 aspirin [ASPIRIN] Allergy Unknown ORAL Verified 08/22/22 21:36 HIVES, hives ibuprofen [IBUPROFEN] Allergy Unknown ORAL Verified 08/22/22 21:36 HIVES, hives peanut Allergy Unknown hives Verified 08/22/22 21:36 pineapple Allergy Unknown hioves Verified 08/22/22 21:36 tree nut Allergy Unknown hives Verified 08/22/22 21:36 lisinopril [LISINOPRIL] AdvReac Unknown DIFFICULTY Verified 08/22/22 21:36 BREATHING COUGH, cough methotrexate AdvReac Unknown LFTs Verified 08/22/22 21:36 elevated Review of Systems Constitutional: Constitutional: Reports as per HPI, Denies chills, Denies fatigue and Denies fever(s) ENT: Reports neck pain Cardiovascular: Cardiovascular: Denies chest pain and Denies dyspnea Respiratory: Respiratory: Denies cough and Denies dyspnea Gastrointestinal: Gastrointestinal: Denies abdominal pain, Denies constipation and Denies vomiting Genitourinary: Genitourinary: Denies dysuria Musculoskeletal: Musculoskeletal: Reports muscle cramps, Reports neck pain and Reports stiffness Neurologic: Denies focal weakness Endocrine: Endocrine: Denies fatigue PMFSH Past Medical History Medical History Dyslipidemia Ear infection Hidradenitis suppurativa HTN (hypertension) Lymphocytosis Osteoarthritis Rheumatoid arthritis Tinea unguium Surgical History H/O total hysterectomy with bilateral salpingo-oophorectomy (BSO) History of axillary surgery History of section History of endometrial biopsy Family History Family History Father Colon cancer Diabetes mellitus HTN (hypertension) Mother Diabetes mellitus Daughter No problems noted. 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 [facility] [facility] [place] occupational exposures/hazards: Yes Cognitive needs: No Hearing needs: No Vision needs: No Physical Exam ED Vital Signs: Vital Signs - 24 hr 08/22/22 21:36 08/22/22 22:00 08/23/22 00:00 Temperature 97.4 F Pulse Rate 89 87 84 Respiratory Rate 19 18 18 Blood Pressure 155/90 H 158/88 H 160/82 H Pulse Oximetry 98 98 Oxygen Delivery Method Room Air BMI result Body Mass Index 37.8 Const General: healthy appearing, comfortable, no acute distress, alert and awake Nutritional Appearance: well nourished Orientation/consciousness: patient oriented x3 HENMT Head: Yes normocephalic and Yes atraumatic Eyes Eyelids: Yes eyelids normal Conjunctivae: conjunctivae normal Sclerae: sclerae normal Corneas: corneas normal Pupils: Equal, round and reactive pupils present EOM: EOMs intact bilaterally Neck Other: Tenderness in the right trapezius muscle group without deformity. no spinal tenderness, no meningeal signs. No evidence of neck swelling Resp Effort & Inspection: normal respiratory effort, able to speak in complete sentences and not labored Skin General skin exam: no rashes or lesions noted and elasticity normal Neuro General: patient oriented x3 Cranial nerves: Yes Equal, round and reactive pupils present and Yes Bilaterally intact EOM present Cognition (Neuro): normal cognition Extrem Other: Moving all extremities well without any obvious deformities Medical Decision Making Medical Decision Making [facility] Narrative: Patient has classic presentation of right trapezius muscle strain. She is tender in the area has difficulty turning her head to the side but does have full range of motion the neck. No fevers or chills, no meningeal signs. There was no trauma to suggest significant bony injury. Will defer imaging this time. The patient allergy to NSAIDs, we will treat with methocarbamol, warm compresses. Differential Diagnosis Muscle strain Contusion Radiculopathy Tension headache Spasmodic torticollis Discharge Plan Discharge Clinical Impression: Muscle strain Patient Disposition: Home, Self-Care Instructions: Muscle Strain (ED) Additional Instructions: Use methocarbamol as needed for muscle spasms. This may make you sleepy, did not drink alcohol or drive after taking it Use Tylenol as needed for pain. Stretch the sore area every 4 hours for 10-15 minutes Follow-up with your primary doctor Prescriptions: New methocarbamol 500 mg tablet 500 mg PO QID PRN (Reason: muscle spam) Qty: 20 0RF No Action clonazepam [Klonopin] 0.5 mg tablet 0.25 mg PO DAILY PRN (Reason: anxiety attacks) 30 Days Qty: 15 0RF Rx Instructions: administer 30 minutes before bedtime atorvastatin 40 mg tablet 40 mg PO DAILY Qty: 90 1RF bupropion HCl 300 mg tablet extended release 24 hr 300 mg PO DAILY Qty: 90 1RF Trulicity 1.5 mg/0.5 mL pen injector 1.5 mg subcut QWEEK Qty: 6 1RF Jardiance 25 mg tablet 25 mg PO DAILY Qty: 90 1RF irbesartan 150 mg tablet 300 mg PO DAILY Qty: 180 1RF metformin 500 mg tablet extended release 24 hr 1,000 mg PO BID Qty: 360 1RF codeine-guaifenesin 10-100 mg/5 mL liquid 5 ml PO BEDTIME PRN (Reason: cold symptoms) 10 Days Qty: 118 0RF prednisone 10 mg tablet 10 mg PO DAILY 21 Days Qty: 65 0RF Rx Instructions: 6 tabs for 3 days, 5 tabs for 3 days, 4t for 3d, 3t for 3d, 2t for 3d, 1 t for 3d, .5 tab for 3d chlorthalidone 25 mg tablet 25 mg PO QAM Qty: 90 1RF ergocalciferol (vitamin D2) 1,250 mcg (50,000 unit) capsule 1,250 mcg PO QWEEK Qty: 13 3RF ketoconazole 2 % cream 1 appl topical BID Qty: 60 0RF Rx Instructions: until resolved Humira(CF) Pen 40 mg/0.4 mL pen injector kit 40 mg subcut Q2W melatonin 5 mg tablet 5 mg PO BEDTIME albuterol sulfate 90 mcg/actuation HFA aerosol inhaler 1 inh inhalation QID PRN (Reason: shortness of breath or wheezing) Qty: 6.7 0RF prednisone 50 mg tablet 50 mg PO DAILY 6 Days Qty: 6 0RF amoxicillin-pot clavulanate 875-125 mg tablet 1 tab PO Q12H 10 Days Qty: 20 0RF Interventions: ED Discharge Assessment Last Done: 08/23/22 01:45
== END 2022-08-23 01:42 | disposition home or self-care (01) ==
PROVIDERS: Emergency Provider Internal Medicine; PCP Nurse Practitioner Family
DX: S46.811A Strain of other muscles, fascia and tendons at shoulder and upper arm level, right arm, initial encounter (principal); X50.1XXA Overexertion from prolonged static or awkward postures, initial encounter; E11.9 Type 2 diabetes mellitus without complications; I10 Essential (primary) hypertension; E78.5 Hyperlipidemia, unspecified; F17.210 Nicotine dependence, cigarettes, uncomplicated; Y93.84 Activity, sleeping; Y92.013 Bedroom of single-family (private) house as the place of occurrence of the external cause; Y99.9 Unspecified external cause status; Z79.85 Long-term (current) use of injectable non-insulin antidiabetic drugs; Z79.84 Long term (current) use of oral hypoglycemic drugs; Z79.02 Long term (current) use of antithrombotics/antiplatelets; Z79.899 Other long term (current) drug therapy
CPT/HCPCS: 99282; 99283; 99284

== ENCOUNTER 2022-08-29 08:19 | Outpatient (REF) | payer OTHER, SELFPAY | END 2022-08-29 08:20 | disposition home or self-care (01) | LOC: HO.HMGCX 08:19 | PROVIDERS: PCP Nurse Practitioner Family; Visit Provider Internal Medicine | DX: J40 Bronchitis, not specified as acute or chronic (principal) | CPT/HCPCS: 71046 ==

== ENCOUNTER 2022-11-09 15:43 | Outpatient (AMB) | payer OTHER, SELFPAY ==
[2022-11-09 15:51] VITALS: BP 120/74; PULSE 84; O2SAT 98; BMI 38.3
--- NOTE | 2022-11-09 15:51 | MHC.PC.OV ---
Vital Signs 11/09/22 15:51 Height 5 ft 4 in Weight 223 lb 4 oz BMI 38.3 BP 120/74 Blood Pressure Location Rt brachial Position Sitting Pulse 84 Pulse Source Pulse Oximeter Pulse Oximetry (%) 98 Oxygen Delivery Method Room Air Intake Visit Reasons: 3m follow up Allergies nut - unspecified [nut] Allergy (Intermediate, Verified 11/09/22 15:55) HIVES aspirin [ASPIRIN] Allergy (Unknown, Verified 11/09/22 15:55) ORAL HIVES, hives ibuprofen [IBUPROFEN] Allergy (Unknown, Verified 11/09/22 15:55) ORAL HIVES, hives peanut Allergy (Unknown, Verified 11/09/22 15:55) hives tree nut Allergy (Unknown, Verified 11/09/22 15:55) hives lisinopril [LISINOPRIL] Adverse Reaction (Unknown, Verified 11/09/22 15:55) DIFFICULTY BREATHING COUGH, cough methotrexate Adverse Reaction (Unknown, Verified 11/09/22 15:55) LFTs elevated Tobacco use date assessed: 11/09/22 HPI 3m follow up HPI Details Pt is a diabetic, on an ARB and a statin. A1C in office today is 6.8. Microalbumin is up to date. Denies polyuria, polydipsia, and neuropathy. Pt denies any signs and symptoms of hypoglycemia and does know how to correct it. eye exam is up to date. Understands the s/s of hypoglycemia and how to correct it [facility] Medical History Dyslipidemia Ear infection Hidradenitis suppurativa HTN (hypertension) Lymphocytosis Osteoarthritis Rheumatoid arthritis Tinea unguium Surgical History H/O total hysterectomy with bilateral salpingo-oophorectomy (BSO) History of axillary surgery History of section History of endometrial biopsy Family History Father Colon cancer Diabetes mellitus HTN (hypertension) Mother Diabetes mellitus Daughter No problems noted. 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 Papa Mathews, Jennifer Hyatt, Ricky Carrasco and colleagues, with an educational alex from [employer]. Review of Systems Const Reports as per HPI Physical exam (Primary Care) Vital Signs: Last Vital Signs Pulse 84 11/09/22 15:51 BP 120/74 11/09/22 15:51 Pulse Ox 98 11/09/22 15:51 Oxygen Delivery Method Room Air 11/09/22 15:51 BMI result Body Mass Index 38.3 Tobacco/Smoking Status: Tobacco use Status Tobacco use date assessed 11/09/22 11/09/22 15:59 Patient Tobacco Use Status Current everyday Tobacco 11/09/22 15:57 e-Cigarette/Vaping Use Never Used 11/09/22 15:57 Thrive Assessment: Date of Thrive Assessment Date Thrive assessed 04/25/22 11/09/22 15:57 Const General: cooperative Nutritional Appearance: obese Orientation/consciousness: patient oriented x3 Resp Effort & Inspection: normal respiratory effort Auscultation: clear to auscultation bilaterally Cardio Rate: regular rate Rhythm: regular rhythm Heart sounds: S1 normal heart sound present, S2 normal heart sound present and Murmur heart sound present systolic Neuro General: patient oriented x3 Extrem Other: bilat feet: + sensation with use of monofilament, feet intact Psych Appearance: grossly normal Mental Status: mental status grossly normal Speech and movement: Normal speech and movement present Affect: normal affect Attitude: cooperative Thought process: Normal thought process present Thought content: Normal thought content present Insight: Good insight present (Psych) Judgement: Good judgement present (Psych) Results AMB Hemoglobin A1c AMB Hemoglobin A1c 6.8 % Last Edit by Althea Bah CMA on 11/09/22 16:18 Results Reviewed Results Reviewed: Laboratory Last Values Hgb A1c (Clinic) 6.8 % (4.0-6.0) H 11/09/22 16:11 Assessment and Plan Assessment & Plan (1) Diabetes: Code(s): E11.9 - Type 2 diabetes mellitus without complications Plan: Labs ordered Plan The patient agreed to the use of a medical and scientific illustrator for this encounter. Scribed for THOMAS Anders- by Carmina Silvre medical and scientific illustrator, on 11/09/2022 at 16:15 EST. Orders: Orders Complete Blood Count Auto Diff Today E11.9 - Type 2 diabetes mellitus without complications AMB Hemoglobin A1c Today E11.9 - Type 2 diabetes mellitus without complications MM screening mammo BI Today Z12.31 - Encounter for screening mammogram for malignant neoplasm of breast Comprehensive [place]. Panel Fast Today E11.9 - Type 2 diabetes mellitus without complications TSH reflex Free T4 Today E11.9 - Type 2 diabetes mellitus without complications UA CC w/rflx Micro + Cult Today E11.9 - Type 2 diabetes mellitus without complications Lipid Panel Today E11.9 - Type 2 diabetes mellitus without complications Coding Level of Care Code Est Pt Level 3 (73575) Diagnoses Diabetes E11.9
== END 2022-11-09 16:37 | disposition home or self-care (01) ==
PROVIDERS: PCP Nurse Practitioner Family; Visit Provider Nurse Practitioner Family
DX: E11.9 Type 2 diabetes mellitus without complications (principal)
CPT/HCPCS: 83036; 99213

== ENCOUNTER 2023-03-09 15:54 | Outpatient (AMB) | payer OTHER, SELFPAY ==
--- NOTE | 2023-03-09 16:11 | A.OFFPC_ITS ---
Vital Signs 03/09/23 16:15 Height 5 ft 4 in Weight 240 lb BMI 41.2 BP 112/80 Blood Pressure Location Rt brachial Position Sitting Pulse 88 Pulse Source Pulse Oximeter Pulse Oximetry (%) 97 Oxygen Delivery Method Room Air Intake Visit Reasons: diabetes f/u Intake Note: Patient there for diabetes f/u. Allergies nut - unspecified [nut] Allergy (Intermediate, Verified 03/09/23 16:16) HIVES aspirin [ASPIRIN] Allergy (Unknown, Verified 03/09/23 16:16) ORAL HIVES, hives ibuprofen [IBUPROFEN] Allergy (Unknown, Verified 03/09/23 16:16) ORAL HIVES, hives peanut Allergy (Unknown, Verified 03/09/23 16:16) hives tree nut Allergy (Unknown, Verified 03/09/23 16:16) hives lisinopril [LISINOPRIL] Adverse Reaction (Unknown, Verified 03/09/23 16:16) DIFFICULTY BREATHING COUGH, cough methotrexate Adverse Reaction (Unknown, Verified 03/09/23 16:16) LFTs elevated Tobacco use date assessed: 03/09/23 Dental Screening Dental Screen Date: 03/09/23 Did you have a dental visit in the last 12 months?: Yes Did you have a dental problem in the last 6 months where you did not have access to dental care?: No Was dental information given to patient?: Patient has dentist HPI diabetes f/u HPI Details DM: on a arb and a statin. 6.9 A1c today. Pt denies any polyuria, polydisia, and neuropathy. Pt understands the s/s of hypoglycemia and how to correct it. Pt's eye exam is up to date. Pt had the prevnar injection recently. Pt has a corporate scheduler she sees regularly. [facility] Medical History Ear infection Osteoarthritis Hidradenitis suppurativa Dyslipidemia Tinea unguium Lymphocytosis Rheumatoid arthritis HTN (hypertension) Surgical History History of endometrial biopsy History of axillary surgery H/O total hysterectomy with bilateral salpingo-oophorectomy (BSO) History of section Family History Father Colon cancer Diabetes mellitus HTN (hypertension) Mother Diabetes mellitus Daughter No problems noted. 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 How often do you have a drink containing alcohol?: Monthly or less 2. How many drinks containing alcohol do you have on a typical day when you are drinking?: 1 or 2 3. How often do you have six or more drinks on one occasion?: Never Total Score: 1 MILKA-7 AMB Questionnaire MILKA-7 Date MILKA - 7 assessed: 04/25/22 Feeling nervous, anxious, or on edge: 1 = Several days Not being able to stop or control worryin = Several days Worrying too much about different things: 2 = More than half the days Trouble relaxin = Several days Being so restless that it is hard to sit still: 1 = Several days Becoming easily annoyed or irritable: 1 = Several days Feeling afraid as if something awful might happen: 0 = Not at all Total MILKA-7 score (0-4 normal; 5-9 mild; 10-14 moderate; 15-21 severe): 7 Source: Developed by Drs. Papa Mathews, Jennifer Hyatt, Ricky Carrasco and colleagues, with an educational alex from [employer]. Physical exam (Primary Care) Vital Signs: Last Vital Signs Pulse 88 03/09/23 16:15 BP 112/80 03/09/23 16:15 Pulse Ox 97 03/09/23 16:15 Oxygen Delivery Method Room Air 03/09/23 16:15 BMI result Body Mass Index 41.2 Tobacco/Smoking Status: Tobacco use Status Tobacco use date assessed 03/09/23 03/09/23 16:22 Patient Tobacco Use Status Current someday Tobacco 03/09/23 16:22 Tobacco use type Cigarette 03/09/23 16:22 e-Cigarette/Vaping Use Never Used 03/09/23 16:12 Thrive Assessment: Date of Thrive Assessment Date Thrive assessed 04/25/22 03/09/23 16:12 Const General: cooperative, healthy appearing and comfortable Nutritional Appearance: obese Resp Effort & Inspection: normal respiratory effort Auscultation: clear to auscultation bilaterally Cardio Rhythm: regular rhythm Heart sounds: S1 normal heart sound present, S2 normal heart sound present and Murmur heart sound present systolic Extrem Other: feet are intact, + sensation with use of monofilament. Psych Appearance: grossly normal and well kempt Attitude: cooperative Thought process: Normal thought process present Thought content: Normal thought content present Insight: Good insight present (Psych) Judgement: Good judgement present (Psych) Results AMB Hemoglobin A1c AMB Hemoglobin A1c 6.9 % Last Edit by JOHN Lorenz on 03/09/23 16 :41 Results Reviewed Results Reviewed: Laboratory Last Values Hgb A1c (Clinic) 6.9 % (4.0-6.0) H 03/09/23 16:39 Assessment and Plan Assessment & Plan (1) Diabetes: Code(s): E11.9 - Type 2 diabetes mellitus without complications Orders: Orders AMB Hemoglobin A1c Today Z13.9 - Encounter for screening, unspecified Coding Level of Care Code Est Pt Level 3 (73883) Diagnoses Diabetes E11.9
[2023-03-09 16:15] VITALS: BP 112/80; PULSE 88; O2SAT 97; BMI 41.2
== END 2023-03-09 16:44 | disposition home or self-care (01) ==
PROVIDERS: PCP Nurse Practitioner Family; Visit Provider Nurse Practitioner Family
DX: E11.9 Type 2 diabetes mellitus without complications (principal)
CPT/HCPCS: 83036; 99213

== ENCOUNTER 2023-05-01 07:26 | Outpatient (AMB) | payer OTHER, SELFPAY ==
[2023-05-01 07:35] VITALS: BP 126/78; PULSE 86; O2SAT 98; BMI 36.2
--- NOTE | 2023-05-01 07:35 | A.OFFPC_ITS ---
Vital Signs 05/01/23 07:35 Height 5 ft 4 in Weight 211 lb BMI 36.2 BP 126/78 Blood Pressure Location Lt brachial Position Sitting Pulse 86 Pulse Source Pulse Oximeter Pulse Oximetry (%) 98 Oxygen Delivery Method Room Air Intake Visit Reasons: Annual PE Intake Note: Pt is here today for PE. Allergies nut - unspecified [nut] Allergy (Intermediate, Verified 05/01/23 08:03) HIVES aspirin [ASPIRIN] Allergy (Unknown, Verified 05/01/23 08:03) ORAL HIVES, hives ibuprofen [IBUPROFEN] Allergy (Unknown, Verified 05/01/23 08:03) ORAL HIVES, hives peanut Allergy (Unknown, Verified 05/01/23 08:03) hives tree nut Allergy (Unknown, Verified 05/01/23 08:03) hives lisinopril [LISINOPRIL] Adverse Reaction (Unknown, Verified 05/01/23 08:03) DIFFICULTY BREATHING COUGH, cough methotrexate Adverse Reaction (Unknown, Verified 05/01/23 08:03) LFTs elevated Medication List - Last Reconciled 05/01/23 by THOMAS Pearce- adalimumab (Humira(CF) Pen) 40 mg subcut Q2W albuterol sulfate 90 mcg/actuation (Ventolin HFA) 1 inh inhalation QID PRN atorvastatin 40 mg PO DAILY bupropion HCl 300 mg PO DAILY chlorthalidone 25 mg PO QAM clonazepam (Klonopin) 0.25 mg (1/2 x 0.5 mg) PO DAILY PRN 30 days dulaglutide (Trulicity) 1.5 mg (0.5 mL) subcut QWEEK empagliflozin (Jardiance) 25 mg PO DAILY ergocalciferol (vitamin D2) 1,250 mcg PO QWEEK irbesartan 300 mg (2 x 150 mg) PO DAILY ketoconazole 2% 1 appl topical BID melatonin 5 mg PO BEDTIME metformin ER 1,000 mg (2 x 500 mg) PO BID methocarbamol 500 mg PO QID PRN Tobacco use date assessed: 03/09/23 Dental Screening Dental Screen Date: 05/01/23 Did you have a dental visit in the last 12 months?: Yes Did you have a dental problem in the last 6 months where you did not have access to dental care?: No Was dental information given to patient?: Patient has dentist HPI Annual PE HPI Details Pt is here for a PE. Will order labs. Colon screen is up to date. Mammo is up to date according to pt. 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 Pt is a diabetic, on an ARB and a statin. Last A1C was 6.9. Microalbumin is up to date. Denies polyuria, polydipsia, and neuropathy. Pt denies any signs and symptoms of hypoglycemia and does know how to correct it. Eye exam is up to date. Pt has a systolic murmur. Last echo was in 2018. Will repeat echo to assess for changes. [facility] Medical History Ear infection Osteoarthritis Hidradenitis suppurativa Dyslipidemia Tinea unguium Lymphocytosis Rheumatoid arthritis HTN (hypertension) Surgical History History of endometrial biopsy History of axillary surgery H/O total hysterectomy with bilateral salpingo-oophorectomy (BSO) History of section Family History Father Colon cancer Diabetes mellitus HTN (hypertension) Mother Diabetes mellitus Daughter No problems noted. 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 How often do you have a drink containing alcohol?: 2-4 times a month 2. How many drinks containing alcohol do you have on a typical day when you are drinking?: 1 or 2 3. How often do you have six or more drinks on one occasion?: Never Total Score: 2 Score Reviewed/Action Taken: Yes MILKA-7 AMB Questionnaire MILKA-7 Date MILKA - 7 assessed: 04/25/22 Feeling nervous, anxious, or on edge: 1 = Several days Not being able to stop or control worryin = Several days Worrying too much about different things: 1 = Several days Trouble relaxin = Several days Being so restless that it is hard to sit still: 2 = More than half the days Becoming easily annoyed or irritable: 1 = Several days Feeling afraid as if something awful might happen: 0 = Not at all Total MILKA-7 score (0-4 normal; 5-9 mild; 10-14 moderate; 15-21 severe): 7 Source: Developed by Drs. Papa Mathews, Jennifer Hyatt, Ricky Carrasco and colleagues, with an educational alex from [employer]. MILKA-7 Assessment Billing MILKA-7 Assessment Tool: MILKA-7 Assessment [id number] Review of Systems Const Denies chills and Denies fever(s) Eyes Denies blurry vision ENT Denies vertigo, Denies dizziness and Denies sore throat Card Denies chest pain at rest, Denies chest pain with activity, Denies diaphoresis, Denies dyspnea and Denies dyspnea on exertion Resp Denies cough, Denies dyspnea, Denies dyspnea on exertion and Denies wheezing GI Denies abdominal pain, Denies melena, Denies hematochezia, Denies constipation, Denies diarrhea and Denies loose stools Denies hematuria Musc Denies numbness and Denies tingling Skin/Breast Denies lesions Neuro Denies vertigo, Denies dizziness, Denies numbness and Denies tingling Psych Denies anxiety, Denies depression, Denies homicidal ideation, Denies suicidal ideation and Denies other (substance abuse) Aller/Immun Denies wheezing Physical exam (Primary Care) Vital Signs: Last Vital Signs Pulse 86 05/01/23 07:35 BP 126/78 05/01/23 07:35 Pulse Ox 98 05/01/23 07:35 Oxygen Delivery Method Room Air 05/01/23 07:35 BMI result Body Mass Index 36.2 Tobacco/Smoking Status: Tobacco use Status Tobacco use date assessed 03/09/23 05/01/23 07:41 Patient Tobacco Use Status Current someday Tobacco 05/01/23 07:41 Tobacco use type Cigarette 05/01/23 07:41 e-Cigarette/Vaping Use Never Used 05/01/23 07:41 Thrive Assessment: Date of Thrive Assessment Date Thrive assessed 04/25/22 05/01/23 07:41 Const General: cooperative Nutritional Appearance: obese Orientation/consciousness: patient oriented x3 HENMT Head: Yes normal to inspection, Yes normocephalic and Yes atraumatic Ears: TM's normal bilaterally Eyes General: appearance normal, both eyes and all related structures Alignment and Position: alignment normal and position normal Neck Neck: Yes normal visual inspection and Yes no lymphadenopathy Thyroid: Thyroid normal Resp Effort & Inspection: normal respiratory effort Auscultation: clear to auscultation bilaterally Cardio Rate: regular rate Rhythm: regular rhythm Heart sounds: S1 normal heart sound present, S2 normal heart sound present and Murmur heart sound present systolic GI Palpation (GI): Soft to palpation and nontender Auscultation: normal bowel sounds Skin Rashes: no rashes Neuro General: patient oriented x3, moves all extremities, no focal motor deficits and deep tendon reflexes 2+ bilaterally Romberg Test: Negative Psych Appearance: grossly normal Mental Status: mental status grossly normal Speech and movement: Normal speech and movement present Affect: normal affect Attitude: cooperative Thought process: Normal thought process present Thought content: Normal thought content present Insight: Good insight present (Psych) Judgement: Good judgement present (Psych) Assessment and Plan Assessment & Plan (1) Diabetes: Code(s): E11.9 - Type 2 diabetes mellitus without complications Plan: Labs ordered (2) Physical exam: Code(s): Z00.00 - Encounter for general adult medical examination without abnormal findings Plan: Labs ordered (3) Systolic murmur: Code(s): R01.1 - Cardiac murmur, unspecified Plan: repeat echo, last done in 2018 Plan The patient agreed to the use of a medical radiation therapist for this encounter. Scribed for GLORIA Anders by Carmina Silver, medical radiation therapist, on 05/01/2023 at 08:00 EST. Orders: Orders Complete Blood Count Auto Diff Today E11.9 - Type 2 diabetes mellitus without complications, Z00.00 - Encounter for general adult medical examination without abnormal findings Comprehensive [place]. Panel Fast Today E11.9 - Type 2 diabetes mellitus without complications, Z00.00 - Encounter for general adult medical examination without abnormal findings Lipid Panel Today E11.9 - Type 2 diabetes mellitus without complications, Z00.00 - Encounter for general adult medical examination without abnormal findings Microalbumin, Random (w Creat) Today E11.9 - Type 2 diabetes mellitus without complications TSH reflex Free T4 Today E11.9 - Type 2 diabetes mellitus without complications, Z00.00 - Encounter for general adult medical examination without abnormal findings UA CC w/rflx Micro + Cult Today E11.9 - Type 2 diabetes mellitus without complications, Z00.00 - Encounter for general adult medical examination without abnormal findings Hemoglobin A1c Today E11.9 - Type 2 diabetes mellitus without complications, Z00.00 - Encounter for general adult medical examination without abnormal findings CA echo transthoracic complete Today R01.1 - Cardiac murmur, unspecified Coding Level of Care Code Est Pt Prev Care 40-64y(83716) Diagnoses Diabetes E11.9 Physical exam Z00.00 Systolic murmur R01.1 Additional Codes MILKA-7 Assessment Billing - MILKA-7 Assessment Tool: MILKA-7 Assessment [id number] ([id number])
== END 2023-05-01 09:26 | disposition home or self-care (01) ==
PROVIDERS: Visit Provider Nurse Practitioner Family
DX: E11.9 Type 2 diabetes mellitus without complications (principal); Z00.00 Encounter for general adult medical examination without abnormal findings; R01.1 Cardiac murmur, unspecified
CPT/HCPCS: 99396

== ENCOUNTER 2023-07-12 14:52 | Outpatient (AMB) | payer OTHER, SELFPAY ==
[2023-07-12 15:21] VITALS: BP 122/72; PULSE 78; TEMP 36.6; O2SAT 97; BMI 36.2
--- NOTE | 2023-07-12 15:21 | AM.OFFWIN_ITS ---
Intake Vital Signs 07/12/23 15:21 Height 5 ft 4 in Weight 211 lb BMI 36.2 BP 122/72 Blood Pressure Location Rt brachial Position Sitting Pulse 78 Pulse Source Pulse Oximeter Temp 97.9 F Temp Source Temporal Artery Scan Pulse Oximetry (%) 97 Intake Visit Reasons: EP cyst lft groin area Intake Note: pt is here for cyst on groin area, nurse requesting patient to come in to be evaluated Patient Tobacco Use Status: Current someday Tobacco user Allergies nut - unspecified [nut] Allergy (Intermediate, Verified 07/12/23 15:21) HIVES aspirin [ASPIRIN] Allergy (Unknown, Verified 07/12/23 15:21) ORAL HIVES, hives ibuprofen [IBUPROFEN] Allergy (Unknown, Verified 07/12/23 15:21) ORAL HIVES, hives peanut Allergy (Unknown, Verified 07/12/23 15:21) hives tree nut Allergy (Unknown, Verified 07/12/23 15:21) hives lisinopril [LISINOPRIL] Adverse Reaction (Unknown, Verified 07/12/23 15:21) DIFFICULTY BREATHING COUGH, cough methotrexate Adverse Reaction (Unknown, Verified 07/12/23 15:21) LFTs elevated Do you need a note to return to daycare/school/sports/work: No HPI HPI Comments History of Present Illness Details She presents to office with cyst to groin She said + red and angry + discharge yesterday Warm compress but not resolved No other medicines taken for it She said not too painful aside with palpation No fever or chills PFSH Medical History Ear infection Osteoarthritis Hidradenitis suppurativa Dyslipidemia Tinea unguium Lymphocytosis Rheumatoid arthritis HTN (hypertension) Surgical History History of endometrial biopsy History of axillary surgery H/O total hysterectomy with bilateral salpingo-oophorectomy (BSO) History of section Family History Father Colon cancer Diabetes mellitus HTN (hypertension) Mother Diabetes mellitus Daughter No problems noted. 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 Speaking full sentences. Skin: Warm dry throughout. L groin has area of erythema approx 2cm x 4cm. Central region of induration approx 2cm x 2cm. No fluctuance. No drainage. Slightly tender to palpation Eye: EOMI Respiratory: No respiratory distress MSK: Full ROM extremities. Neurology: A/O. No aphasia or facial droop. Gait without abnormality Psych: Good mood and affect Assessment & Plan Assessment & Plan (1) Groin abscess: Code(s): L02.214 - Cutaneous abscess of groin Plan: Patient seen and evaluated. Area is indurated so we discussed soft tissue swelling vs fluid Verbal consent obtained and area cleaned with betadine and alcohol. Lidocaine 1% used to numb region and then 20G used to aspirate with approx .3ml bloody pus removed. Palpation used to try to express further discharge without sucess. Area cleaned. Pt tolerated well without complication Discussed warm compress and bactrim with food without alcohol Patient gave verbal understanding and had no additional questions or concerns at time of discharge All questions answered Medications: New sulfamethoxazole-trimethoprim 800-160 mg (Bactrim DS) 1 tab PO BID 20 tabs 0RF Coding Level of Care Code Est Pt Level 3 (33477) Diagnoses Groin abscess L02.214
== END 2023-07-12 16:12 | disposition home or self-care (01) ==
PROVIDERS: PCP Nurse Practitioner Family; Visit Provider Physician Assistant
DX: L02.214 Cutaneous abscess of groin (principal)
CPT/HCPCS: 99213

== ENCOUNTER 2023-08-02 12:38 | Outpatient (AMB) | payer OTHER, SELFPAY ==
--- NOTE | 2023-08-02 12:42 | MHC.PC.OV ---
Vital Signs 08/02/23 12:45 Height 5 ft 4 in Weight 203 lb BMI 34.8 BP 126/82 Blood Pressure Location Lt brachial Position Sitting Pulse 67 Pulse Source Pulse Oximeter Pulse Oximetry (%) 94 Oxygen Delivery Method Room Air Intake Visit Reasons: HDF-[facility] Intake Note: Patient here for HDF. Allergies nut - unspecified [nut] Allergy (Intermediate, Verified 08/02/23 12:46) HIVES aspirin [ASPIRIN] Allergy (Unknown, Verified 08/02/23 12:46) ORAL HIVES, hives ibuprofen [IBUPROFEN] Allergy (Unknown, Verified 08/02/23 12:46) ORAL HIVES, hives peanut Allergy (Unknown, Verified 08/02/23 12:46) hives tree nut Allergy (Unknown, Verified 08/02/23 12:46) hives lisinopril [LISINOPRIL] Adverse Reaction (Unknown, Verified 08/02/23 12:46) DIFFICULTY BREATHING COUGH, cough methotrexate Adverse Reaction (Unknown, Verified 08/02/23 12:46) LFTs elevated Medication List - Last Reconciled 08/02/23 by THOMAS Pearce- albuterol sulfate 90 mcg/actuation (Ventolin HFA) 1 inh inhalation QID PRN atorvastatin 40 mg PO DAILY bupropion HCl XL 300 mg PO DAILY certolizumab pegol (Cimzia Starter Kit) mg subcut chlorthalidone 25 mg PO QAM clonazepam (Klonopin) 0.25 mg (1/2 x 0.5 mg) PO DAILY PRN 30 days dulaglutide (Trulicity) 1.5 mg (0.5 mL) subcut QWEEK empagliflozin (Jardiance) 25 mg PO DAILY ergocalciferol (vitamin D2) 1,250 mcg PO QWEEK irbesartan 300 mg (2 x 150 mg) PO DAILY ketoconazole 2% 1 appl topical BID melatonin 5 mg PO BEDTIME metformin ER 1,000 mg (2 x 500 mg) PO BID methocarbamol 500 mg PO QID PRN Tobacco use date assessed: 03/09/23 Dental Screening Dental Screen Date: 05/01/23 HPI HDF-[facility] HPI Details Pt was seen in the ER on 07/16 with a thigh abscess. She had this drained previously and was seen in the ER on 07/14 where her antibiotics were changed. Pt reported that her pain and redness worsened, spread to medial thigh and around to buttock. Pt was given IV vancomycin and zosyn. She was transferrred to [facility] [place]. CT showed a bilobed rim-enhancing fluid collection within the left medial thigh with surrounding cellulitis. Pt underwent I&D on 07/16 with persistent cellulitis and erythema post op. She then underwent excisional debridement on 07/19 with cultures growing actinobaculum schaalii, finegoldia magna, and prevotella species. Pt had a wound vac placed on 07/22 which she was discharged with. Pt was d/c on augmentin. Pt has [facility]NA 3 days a week for wound vac changes. She is following up with her surgeon next week. Denies fever, chills, and dizziness. She reported that during the last VNA appt, she was told her wound is healing excellent, wound vac may be D/Cd next week. SHe also reports that the canister was recently changed, wound vac is draining thin reddish liquid. [facility] Medical History (Updated 08/02/23 @ 13:11 by GLORIA Pearce) Hidradenitis suppurativa Ear infection Osteoarthritis Dyslipidemia Tinea unguium Lymphocytosis Rheumatoid arthritis HTN (hypertension) Surgical History History of endometrial biopsy History of axillary surgery H/O total hysterectomy with bilateral salpingo-oophorectomy (BSO) History of section Family History Father Colon cancer Diabetes mellitus HTN (hypertension) Mother Diabetes mellitus Daughter No problems noted. 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 1. Little interest or pleasure in doing things: not at all 2. Feeling down, depressed, or hopeless: more than half the days 3. Trouble falling or staying asleep, or sleeping too much: several days 4. Feeling tired or having little energy: several days 5. Poor appetite or overeating: not at all 6. Feeling bad about yourself - or that you are a failure or have let yourself or your family down: several days 7. Trouble concentrating on things, such as reading the newspaper or watching television: not at all 8. Moving or speaking so slowly that other people could have noticed. Or the opposite - being so fidgety or restless that you have been moving around a lot more than usual: not at all 9. Thoughts that you would be better off or of hurting yourself in some way: not at all Total score: 5 Depression Screening Interpretation: Negative Depression Screening Done: Yes 95000 - PHQ-9 Billing: Yes Source: Developed by Drs. Papa Mathews, Jennifer Hyatt, Ricky Carrasco and colleagues, with an educational alex from [employer]. Thrive Questionnaire Date Thrive assessed: 04/25/22 MILKA-7 AMB Questionnaire MILKA-7 Date MILKA - 7 assessed: 04/25/22 Source: Developed by Drs. Papa Mathews, Jennifer Hyatt, Ricky Carrasco and colleagues, with an educational alex from [employer]. MILKA-7 Assessment Billing MILKA-7 Assessment Tool: pt declined-do not bill Review of Systems Const Reports as per HPI Physical exam (Primary Care) Vital Signs: Last Vital Signs Pulse 67 08/02/23 12:45 BP 126/82 08/02/23 12:45 Pulse Ox 94 08/02/23 12:45 Oxygen Delivery Method Room Air 08/02/23 12:45 BMI result Body Mass Index 34.8 Tobacco/Smoking Status: Tobacco use Status Tobacco use date assessed 03/09/23 08/02/23 12:45 Patient Tobacco Use Status Current someday Tobacco 08/02/23 12:45 Tobacco use type Cigarette 08/02/23 12:45 e-Cigarette/Vaping Use Never Used 08/02/23 12:45 Depression Screening Interpretation: Negative Thrive Assessment: Date of Thrive Assessment Date Thrive assessed 04/25/22 08/02/23 12:45 Const General: cooperative Nutritional Appearance: obese Orientation/consciousness: patient oriented x3 Resp Effort & Inspection: normal respiratory effort Auscultation: clear to auscultation bilaterally Cardio Rate: regular rate Rhythm: regular rhythm Heart sounds: S1 normal heart sound present, S2 normal heart sound present and Murmur heart sound present systolic Skin Other: left wound vac attached to left proximal medial thigh. No air leaks noted to wound vac. No surrounding erythema noted. No warm or tenderness surrounding wound. Neuro General: patient oriented x3 Psych Appearance: grossly normal Mental Status: mental status grossly normal Speech and movement: Normal speech and movement present Affect: normal affect Attitude: cooperative Thought process: Normal thought process present Thought content: Normal thought content present Insight: Good insight present (Psych) Judgement: Good judgement present (Psych) Assessment and Plan Assessment & Plan (1) Hidradenitis suppurativa: Code(s): L73.2 - Hidradenitis suppurativa Plan: referring to derm (2) Groin abscess: Code(s): L02.214 - Cutaneous abscess of groin Plan: following up with surgery next week. Wound vac is working great, no signs of infection. Pt knows to go to the ER with any worsening symptoms. Plan The patient agreed to the use of a general medical practitioner for this encounter. Scribed for GLORIA Anders by Carmina Silver general medical practitioner, on 08/02/2023 at 13:00 EST. Orders: Referrals Dermatology Referral L73.2 - Hidradenitis suppurativa Coding Level of Care Code Est Pt Level 3 (58405) Diagnoses Hidradenitis suppurativa L73.2 Groin abscess L02.214
[2023-08-02 12:45] VITALS: BP 126/82; PULSE 67; O2SAT 94; BMI 34.8
== END 2023-08-02 14:43 | disposition home or self-care (01) ==
PROVIDERS: PCP Nurse Practitioner Family; Visit Provider Nurse Practitioner Family
DX: L73.2 Hidradenitis suppurativa (principal); L02.214 Cutaneous abscess of groin
CPT/HCPCS: 99213

== ENCOUNTER 2023-08-30 12:25 | Outpatient (AMB) | payer OTHER, SELFPAY ==
--- NOTE | 2023-08-30 12:59 | A.OFFPC_ITS ---
Vital Signs 08/30/23 13:06 Height 5 ft 4 in Weight 201 lb BMI 34.5 BP 120/78 Blood Pressure Location Rt brachial Position Sitting Pulse 74 Pulse Source Pulse Oximeter Pulse Oximetry (%) 98 Oxygen Delivery Method Room Air Intake Visit Reasons: 4 month follow up Intake Note: Patient here for DM f/u Allergies nut - unspecified [nut] Allergy (Intermediate, Verified 08/30/23 13:44) HIVES aspirin [ASPIRIN] Allergy (Unknown, Verified 08/30/23 13:44) ORAL HIVES, hives ibuprofen [IBUPROFEN] Allergy (Unknown, Verified 08/30/23 13:44) ORAL HIVES, hives peanut Allergy (Unknown, Verified 08/30/23 13:44) hives tree nut Allergy (Unknown, Verified 08/30/23 13:44) hives lisinopril [LISINOPRIL] Adverse Reaction (Unknown, Verified 08/30/23 13:44) DIFFICULTY BREATHING COUGH, cough methotrexate Adverse Reaction (Unknown, Verified 08/30/23 13:44) LFTs elevated Medication List - Last Reconciled 08/30/23 by Darinel Henriquez [facility] albuterol sulfate 90 mcg/actuation (Ventolin HFA) 1 inh inhalation QID PRN atorvastatin 40 mg PO DAILY blood sugar diagnostic (FreeStyle Lite Strips) As directed to test blood sugar once a day blood-glucose meter (FreeStyle Lite Meter kit) As directed to test sugars once a day bupropion HCl XL 300 mg PO DAILY certolizumab pegol (Cimzia Starter Kit) mg subcut chlorthalidone 25 mg PO QAM ciprofloxacin HCl 500 mg PO BID clindamycin phosphate 1% 1 appl topical DAILY clonazepam (Klonopin) 0.25 mg (1/2 x 0.5 mg) PO DAILY PRN 30 days dulaglutide (Trulicity) 1.5 mg (0.5 mL) subcut QWEEK empagliflozin (Jardiance) 25 mg PO DAILY ergocalciferol (vitamin D2) 1,250 mcg PO QWEEK irbesartan 300 mg (2 x 150 mg) PO DAILY ketoconazole 2% 1 appl topical BID lancets (FreeStyle Lancets) As directed to test blood sugar once a day metformin ER 1,000 mg (2 x 500 mg) PO BID methocarbamol 500 mg PO QID PRN prednisone 40 mg PO Tobacco use date assessed: 03/09/23 Dental Screening Dental Screen Date: 05/01/23 HPI 4 month follow up HPI Details Pt is a diabetic, on an ARB and a statin. Due for A1C and microalbumin, will order. Denies polyuria, polydipsia, and neuropathy. Pt denies any signs and symptoms of hypoglycemia and does know how to correct it. Eye exam is up to date. Pt is currently being seen by [facility]NA 3 times a week due to an abscess on her left proximal medial thigh. She no longer has a wound vac. Pt is following up with her surgeon in the near future. She reports that this is healing well. Pt will have her labs [facility] at [facility]. [facility] Medical History (Updated 08/02/23 @ 13:11 by GLORIA Pearce) Hidradenitis suppurativa Ear infection Osteoarthritis Dyslipidemia Tinea unguium Lymphocytosis Rheumatoid arthritis HTN (hypertension) Surgical History History of endometrial biopsy History of axillary surgery H/O total hysterectomy with bilateral salpingo-oophorectomy (BSO) History of section Family History Father Colon cancer Diabetes mellitus HTN (hypertension) Mother Diabetes mellitus Daughter No problems noted. 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 Papa Mathews, Jennifer Hyatt, Ricky Carrasco and colleagues, with an educational alex from [employer]. Review of Systems Const Reports as per HPI Physical exam (Primary Care) Vital Signs: Last Vital Signs Pulse 74 08/30/23 13:06 BP 120/78 08/30/23 13:06 Pulse Ox 98 08/30/23 13:06 Oxygen Delivery Method Room Air 08/30/23 13:06 BMI result Body Mass Index 34.5 Tobacco/Smoking Status: Tobacco use Status Tobacco use date assessed 03/09/23 08/30/23 13:00 Patient Tobacco Use Status Current someday Tobacco 08/30/23 13:00 Tobacco use type Cigarette 08/30/23 13:00 e-Cigarette/Vaping Use Never Used 08/30/23 13:00 Thrive Assessment: Date of Thrive Assessment Date Thrive assessed 04/25/22 08/30/23 13:00 Const General: cooperative Nutritional Appearance: obese Orientation/consciousness: patient oriented x3 Resp Effort & Inspection: normal respiratory effort Auscultation: clear to auscultation bilaterally Cardio Rate: regular rate Rhythm: regular rhythm Heart sounds: S1 normal heart sound present and S2 normal heart sound present Skin Other: left promimal, medial, thigh with healing wound. 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 Old Aquacel taken out, some areas well approximated. New aquacel applied to areas that are not approximated (small x 3), with good granulation tissue. Surrounding tissue without signs of infection/cellulitis. Neuro General: patient oriented x3 Extrem Other: bilat feet: + sensation with use of monofilament, feet intact Psych Appearance: grossly normal Mental Status: mental status grossly normal Speech and movement: Normal speech and movement present Affect: normal affect Attitude: cooperative Thought process: Normal thought process present Thought content: Normal thought content present Insight: Good insight present (Psych) Judgement: Good judgement present (Psych) Assessment and Plan Assessment & Plan (1) Diabetes: Code(s): E11.9 - Type 2 diabetes mellitus without complications Plan: Labs ordered (2) Hidradenitis suppurativa: Code(s): L73.2 - Hidradenitis suppurativa Plan: Continue to follow up with VNA (3) Groin abscess: Code(s): L02.214 - Cutaneous abscess of groin Plan: Continue to follow up with VNA Plan The patient agreed to the use of a medical front desk specialist for this encounter. Scribed for Darinel Henriquez, [facility]- by Carmina Silver, medical front desk specialist, on 08/30/2023 at 13:35 EST. Orders: Orders Complete Blood Count Auto Diff Today E11.9 - Type 2 diabetes mellitus without complications, L02.214 - Cutaneous abscess of groin, L73.2 - Hidradenitis suppurativa Hemoglobin A1c Today E11.9 - Type 2 diabetes mellitus without complications, L02.214 - Cutaneous abscess of groin, L73.2 - Hidradenitis suppurativa Comprehensive Maben. Panel Fast Today E11.9 - Type 2 diabetes mellitus without complications, L02.214 - Cutaneous abscess of groin, L73.2 - Hidradenitis suppurativa TSH reflex Free T4 Today E11.9 - Type 2 diabetes mellitus without complications, L02.214 - Cutaneous abscess of groin, L73.2 - Hidradenitis suppurativa UA CC w/rflx Micro + Cult Today E11.9 - Type 2 diabetes mellitus without complications, L02.214 - Cutaneous abscess of groin, L73.2 - Hidradenitis suppurativa Lipid Panel Today E11.9 - Type 2 diabetes mellitus without complications, L02.214 - Cutaneous abscess of groin, L73.2 - Hidradenitis suppurativa Microalbumin, Random (w Creat) Today E11.9 - Type 2 diabetes mellitus without complications Medications: Refilled empagliflozin (Jardiance) 25 mg PO DAILY 90 tabs 1RF blood sugar diagnostic (FreeStyle Lite Strips) As directed to test blood sugar once a day 100 ea 1RF E11.9 - Type 2 diabetes mellitus without complications Coding Level of Care Code Est Pt Level 4 (15555) Complex EM visit Add On G2211 Diagnoses Diabetes E11.9 Hidradenitis suppurativa L73.2 Groin abscess L02.214
[2023-08-30 13:06] VITALS: BP 120/78; PULSE 74; O2SAT 98; BMI 34.5
== END 2023-08-30 13:42 | disposition home or self-care (01) ==
PROVIDERS: PCP Nurse Practitioner Family; Visit Provider Nurse Practitioner Family
DX: E11.9 Type 2 diabetes mellitus without complications (principal); L73.2 Hidradenitis suppurativa; L02.214 Cutaneous abscess of groin
CPT/HCPCS: 99214

== ENCOUNTER → 2023-10-25 14:55 | Outpatient (RCR) | payer OTHER, SELFPAY ==
[2020-04-23 08:31] VITALS: BP 126/87; PULSE 98; RESP 12; TEMP 36.9; O2SAT 96; BMI 40.4
[2020-04-23 08:44] LABS: MANUAL DIFF FLAG NO
[2020-04-23 08:48] LABS: Basophils Percent Auto 0.3 % (0-2); Eosinophils Absolute Auto 0.1 X10*3/uL (0.0-0.4); Hematocrit 42.5 % (37-47); Hemoglobin 13.9 g/dl (12.0-16.0); Imm Gran Abs Auto 0.02 X10*3/uL (0.00-0.03); Imm Gran Pct Auto 0.3 % (0.0-0.4); Lymphocytes Percent Auto 48.9 % (20-40); Mean Corpuscular HGB Conc 32.7 g/dl (31.0-35.0); Mean Corpuscular Hemoglobin 26.8 pg (27.0-33.0); Mean Platelet Volume 9.4 fL (9.4-12.3); Monocytes Absolute Auto 0.9 X10*3/uL (0.1-1.2); Monocytes Percent Auto 14.4 % (2-11); Neutrophils Absolute Auto 2.1 X10*3/uL (2.0-8.3); Neutrophils Percent Auto 35.1 % (45-73); Platelet Count 296 X10*3/uL (160-400); Red Blood Count 5.18 X10*6/uL (4.20-5.50); Red Cell Distribution Width 14.9 % (11.0-16.0); White Blood Count 6.1 X10*3/uL (4.8-10.8)
[2020-04-23 09:10] LABS: Alanine Aminotransferase 27 U/L (0-31); Aspartate Amino Transferase 17 U/L (5-31); C Reactive Protein 0.28 mg/dL (< or = 0.50); Creatinine Clr Calc Pharmacy 110.5; Estimated Glomerular Filt Rate > 60
[2020-04-23 09:14] LABS: Alanine Aminotransferase 27 U/L (0-31); Albumin Level 4.1 g/dL (3.5-5.0); Alkaline Phosphatase 74 U/L (39-117); Anion Gap 15 (12-20); Aspartate Amino Transferase 16 U/L (5-31); Bilirubin Total 0.3 mg/dL (0.0-1.0); Blood Urea Nitrogen 16 mg/dL (9-16); Calcium 9.7 mg/dL (8.4-10.2); Carbon Dioxide 26 mmol/L (22-29); Chloride 105 mmol/L (96-108); Creatinine Clr Calc Pharmacy 110.5; Estimated Glomerular Filt Rate > 60; Glucose Random 118 mg/dL (60-115); Lactate Dehydrogenase 144 U/L (122-220); Potassium 3.9 mmol/L (3.3-5.1); Sodium 142 mmol/L (135-145); Total Protein 7.4 g/dL (6.5-8.0)
--- NOTE | 2020-04-23 09:15 | P.PNHO_ITS ---
Medical Summary - Medical Summary Date of Service: 04/23/20 Medical Summary: DIAGNOSES: 1. Chronic Leukocytosis. 2. Rheumatoid arthritis, under the care of Dr. Callahan. CURRENT THERAPY: Embrel, for years. Interval History Interval history: This is a pleasant 45 year-old lady, here for a follow-up visit. She has been feeling quite well. She has not had any fevers chills nor a recent infections. She denies much fatigability. Denies headache no dizziness. No chest pain or trouble breathing. She denies any adenopathy nor frequent infections. No abdominal pain nausea vomiting heartburn indigestion. Her bowels are working without any gross blood in it. She enjoys a good appetite, she has gained some weight. She remains on the Embrel. She follows with Dr. Callahan every 4 months. She is seeing him next month. She is in good spirits. Rest of the review of systems is unremarkable. Review of Systems - Constitutional Reports no additional constitutional complaints - Eyes Reports no additional eye complaints - ENT Reports no additional ear, nose, mouth, and throat complaints - Cardiovascular Reports no additional cardiovascular complaints - Respiratory Reports no additional respiratory complaints - Gastrointestinal Reports no additional gastrointestinal complaints - Genitourinary Reports no additional female genitourinary complaints - Musculoskeletal Reports no additional musculoskeletal complaints - Integumentary/Breasts Skin/Breast: Reports no additional skin complaints - Neurologic Reports no additional neurologic complaints - Psychiatric Reports no additional psychiatric complaints - Endocrine Reports no additional endocrine complaints - Hematologic/Lymphatic Reports no additional hematologic/lymphatic complaints - Allergic/Immunologic Reports no additional allergic/immunologic complaints [facility] Medical History: Medical History (Last Updated 01/22/20 @ 07:58 by GLORIA Pearce) Dyslipidemia HTN (hypertension) Lymphocytosis Rheumatoid arthritis Tinea unguium Functional capacity: independent ambulation Patient : No Family History: Family History (Last Reviewed 01/22/20 @ 07:47 by GLORIA Pearce) Father Colon cancer Diabetes mellitus HTN (hypertension) Mother Diabetes mellitus Daughter No problems noted. Surgical History: Surgical History (Last Reviewed 01/22/20 @ 07:47 by GLORIA Pearce) H/O total hysterectomy with bilateral salpingo-oophorectomy (BSO) History of axillary surgery History of section History of endometrial biopsy Social History: Social History (Last Reviewed 01/22/20 @ 07:47 by Darinel Henriquez, [facility]) Alcohol History: Alcohol intake: current Alcohol History Details: Alcohol intake frequency: holiday/special occasion Oncology Screenings - ECOG Performance Status ECOG Performance Status: 0 Home Medications and Allergies Home Medications Medication Instructions Recorded Confirmed Type atorvastatin 40 mg tablet 40 mg PO DAILY 01/22/20 04/23/20 History baclofen 5 mg tablet 5 mg PO DAILY PRN 01/22/20 04/23/20 History ergocalciferol (vitamin D2) 1,250 1,250 mcg PO ONCE 01/22/20 04/23/20 History mcg (50,000 unit) capsule etanercept 50 mg/mL (1 mL) 50 mg SUBCUT QWEEK 01/22/20 04/23/20 History subcutaneous pen injector naproxen sodium 220 mg capsule 440 mg PO BID PRN cap 01/22/20 04/23/20 History Allergies Allergy/AdvReac Type Severity Reaction Status Date / Time nut - unspecified [nut] Allergy Intermediate HIVES Verified 01/22/20 07:46 aspirin [ASPIRIN] Allergy Unknown ORAL Verified 04/22/20 13:14 HIVES, hives ibuprofen [IBUPROFEN] Allergy Unknown ORAL Verified 04/22/20 13:14 HIVES, hives peanut Allergy Unknown hives Verified 04/22/20 13:14 pineapple Allergy Unknown hioves Verified 04/22/20 13:14 tree nut Allergy Unknown hives Verified 04/22/20 13:14 lisinopril [LISINOPRIL] AdvReac Unknown DIFFICULTY Verified 04/22/20 13:14 BREATHING COUGH, cough methotrexate AdvReac Unknown LFTs Verified 04/22/20 13:14 elevated Exam Vital signs: Vital Signs Temp 98.4 F 04/23/20 08:31 Pulse 98 04/23/20 08:31 Resp 12 04/23/20 08:31 BP 126/87 04/23/20 08:31 Pulse Ox 96 04/23/20 08:31 Intake & Output 04/22/20 04/23/20 04/23/20 18:59 06:59 18:59 Other: Weight 106.8 kg [place] Weight in Grams [id number] Weight 106.8 kg Body Mass Index 40.4 - Constitutional Present: no acute distress - Routine HEENT Exam Head: Present: normal inspection Eye: Present: normal appearance ENT: Present: mucous membranes moist - Routine Neck Exam Present: full ROM - Routine Respiratory Exam Present: CTAB - Routine Cardiovascular Exam Cardiovascular: Present: RRR, S1, S2 - Routine Abdominal Exam Present: soft, nontender - Routine Rectal Exam Patient deferred: digital exam - Routine Extremities Exam Present: nontender - Routine Back/Spine/Pelvis Exam Back/Spine: Present: full ROM - Routine Skin Exam Present: intact - Routine Neurological Exam Present: alert, oriented X3 - Routine Psychiatric Exam Present: normal affect Data - Labs CBC & Chem 7: 04/23/20 08:35 04/23/20 08:35 Labs: 04/23/20 08:35 Alanine Aminotransferase Routine Aspartate Amino Transferase Routine C Reactive Protein Routine Complete Blood Count Auto Diff Routine Comprehensive Met. Panel Routine Creatinine Routine Lactate Dehydrogenase Routine Laboratory Last Values WBC 6.1 X10*3/uL (4.8-10.8) 04/23/20 08:35 RBC 5.18 X10*6/uL (4.20-5.50) 04/23/20 08:35 Hgb 13.9 g/dl (12.0-16.0) 04/23/20 08:35 Hct 42.5 % (37-47) 04/23/20 08:35 MCV 82.0 fL (80-98) 04/23/20 08:35 MCH 26.8 pg (27.0-33.0) L 04/23/20 08:35 MCHC 32.7 g/dl (31.0-35.0) 04/23/20 08:35 RDW 14.9 % (11.0-16.0) 04/23/20 08:35 Plt Count 296 X10*3/uL (160-400) 04/23/20 08:35 MPV 9.4 fL (9.4-12.3) 04/23/20 08:35 Immature Gran % (Auto) 0.3 % (0.0-0.4) 04/23/20 08:35 Neut % (Auto) 35.1 % (45-73) L 04/23/20 08:35 Lymph % (Auto) 48.9 % (20-40) H 04/23/20 08:35 [place] % (Auto) 14.4 % (2-11) H 04/23/20 08:35 Eos % (Auto) 1.0 % (0-4) 04/23/20 08:35 Baso % (Auto) 0.3 % (0-2) 04/23/20 08:35 Lymph # (Auto) 3.0 X10*3/uL (1.2-4.9) 04/23/20 08:35 [place] # (Auto) 0.9 X10*3/uL (0.1-1.2) 04/23/20 08:35 Eos # (Auto) 0.1 X10*3/uL (0.0-0.4) 04/23/20 08:35 Baso # (Auto) 0.0 X10*3/uL (0.0-0.2) 04/23/20 08:35 Abs Immat Gran (auto) 0.02 X10*3/uL (0.00-0.03) 04/23/20 08:35 Absolute Neuts (auto) 2.1 X10*3/uL (2.0-8.3) 04/23/20 08:35 Absolute Nucleated RBC 0.000 X10*3/uL (0.0-0.012) 04/23/20 08:35 Nucleated RBC % (auto) 0.0 /100WBC (0.0-0.2) 04/23/20 08:35 Sodium 142 mmol/L (135-145) 04/23/20 08:35 Potassium 3.9 mmol/L (3.3-5.1) 04/23/20 08:35 Chloride 105 mmol/L (96-108) 04/23/20 08:35 Carbon Dioxide 26 mmol/L (22-29) 04/23/20 08:35 Anion Gap 15 (12-20) 04/23/20 08:35 BUN 16 mg/dL (9-16) 04/23/20 08:35 Creatinine 0.75 mg/dL (0.5-1.4) 04/23/20 08:35 Creatinine 0.75 mg/dL (0.5-1.4) 04/23/20 08:35 Estim Creat Clear Calc 110.5 04/23/20 08:35 Estim Creat Clear Calc 110.5 04/23/20 08:35 Estimated GFR > 60 04/23/20 08:35 Estimated GFR > 60 04/23/20 08:35 Random Glucose 118 mg/dL (60-115) H 04/23/20 08:35 Calcium 9.7 mg/dL (8.4-10.2) 04/23/20 08:35 Total Bilirubin 0.3 mg/dL (0.0-1.0) 04/23/20 08:35 AST 16 U/L (5-31) 04/23/20 08:35 AST 17 U/L (5-31) 04/23/20 08:35 ALT 27 U/L (0-31) 04/23/20 08:35 ALT 27 U/L (0-31) 04/23/20 08:35 Alkaline Phosphatase 74 U/L (39-117) 04/23/20 08:35 Lactate Dehydrogenase 144 U/L (122-220) 04/23/20 08:35 C-Reactive Protein 0.28 mg/dL (< or = 0.50) 04/23/20 08:35 Total Protein 7.4 g/dL (6.5-8.0) 04/23/20 08:35 Albumin 4.1 g/dL (3.5-5.0) 04/23/20 08:35 Progress Note: A/P (1) Leukocytosis Status: Acute Assessment and plan: 45 year-old lady with history of Rheumatoid Arthritis. She has been maintained on Embrel. For a while there, she had Leukocytosis. She was being followed here. That resolved. However, she has been noted to have Lymphocytosis. DIFF DIAGNOSIS: 1. Related to R.A. 2. Related to medications, i.e Embrel. 3. Underlying MBL versus CLL. These can be associated with collagen vascular disorders. l repeated her CBC and a sedimentation rate. Sedimentation rate: 11. CRP is 0.66. Checked an LDH: 175. I checked flow cytometry on peripheral blood, to look for the clonal disorder like MBL or CLL. This revealed: NO DISCRETE CLONAL LYMPHOID EXPANSION DETECTED This is reassuring. Likely related to her underlying collagen vascular disorder. Her differential has actually improved, more towards the normal range. Lymphocyte count is 48.9 today. PLAN: Will continue to monitor. She will return in 1 year for a followup visit. She is following up with Dr. Callahan every 4 months. She was advised to call in case of any fevers chills fatigue or infectious complications. Thank you, CC: Dr. Harper. Dr. William Callahan. - Time Spent With Patient Total time spent is greater than 50% in coordination of care (as documented) at patient's floor/unit and/or counseling patient: 15 - 24 minutes
[2020-04-23 09:22] LABS: Erythrocyte Sedimentation Rate 13 MM/HR (0-20)
--- NOTE | 2020-04-23 10:25 | MHC.HEMONCMA ---
Patient presents to follow up on lymphocytosis. History reviewed, labs drawn and no complaints at this time.
== END | disposition home or self-care (01) ==
LOC: HO.ONC 04-23 08:23
PROVIDERS: Internal Medicine Rheumatology; PCP Nurse Practitioner Family; Visit Provider Internal Medicine Medical Oncology
DX: D72.820 Lymphocytosis (symptomatic) (principal); M06.9 Rheumatoid arthritis, unspecified; Z79.899 Other long term (current) drug therapy
CPT/HCPCS: 36415; 80053; 82565; 83615; 84450; 84460; 85025; 85652; 86140; 99214

== ENCOUNTER 2023-12-06 15:21 | Outpatient (AMB) | payer OTHER, SELFPAY ==
[2023-12-06 15:24] VITALS: BP 132/80; PULSE 96; O2SAT 97; BMI 33.1
--- NOTE | 2023-12-06 15:24 | MHC.PC.OV ---
Vital Signs 12/06/23 15:24 Height 5 ft 4 in Weight 193 lb BMI 33.1 BP 132/80 Blood Pressure Location Rt brachial Position Sitting Pulse 96 Pulse Source Pulse Oximeter Pulse Oximetry (%) 97 Oxygen Delivery Method Room Air Intake Visit Reasons: 3 month follow up Intake Note: pt is here for 3 month follow up Warp Coiler Required: No Accompanied by: Self / Same As Patient Allergies nut - unspecified [nut] Allergy (Intermediate, Verified 12/06/23 17:22) HIVES aspirin [ASPIRIN] Allergy (Unknown, Verified 12/06/23 17:22) ORAL HIVES, hives ibuprofen [IBUPROFEN] Allergy (Unknown, Verified 12/06/23 17:22) ORAL HIVES, hives peanut Allergy (Unknown, Verified 12/06/23 17:22) hives tree nut Allergy (Unknown, Verified 12/06/23 17:22) hives lisinopril [LISINOPRIL] Adverse Reaction (Unknown, Verified 12/06/23 17:22) DIFFICULTY BREATHING COUGH, cough methotrexate Adverse Reaction (Unknown, Verified 12/06/23 17:22) LFTs elevated Medication List - Last Reconciled 12/06/23 by Darinel Henriquez, SURGICAL ASSISTANT- albuterol sulfate 90 mcg/actuation (Ventolin HFA) 1 inh inhalation QID PRN atorvastatin 40 mg PO DAILY blood sugar diagnostic (FreeStyle Lite Strips) As directed to test blood sugar once a day blood-glucose meter (FreeStyle Lite Meter kit) As directed to test sugars once a day bupropion HCl XL 300 mg PO DAILY certolizumab pegol (Cimzia Starter Kit) mg subcut chlorthalidone 25 mg PO QAM clindamycin phosphate 1% 1 appl topical DAILY clonazepam (Klonopin) 0.25 mg (1/2 x 0.5 mg) PO DAILY PRN 30 days dulaglutide (Trulicity) 1.5 mg (0.5 mL) subcut QWEEK empagliflozin (Jardiance) 25 mg PO DAILY ergocalciferol (vitamin D2) 1,250 mcg PO QWEEK irbesartan 300 mg (2 x 150 mg) PO DAILY ketoconazole 2% 1 appl topical BID lancets (FreeStyle Lancets) As directed to test blood sugar once a day metformin ER 1,000 mg (2 x 500 mg) PO BID Tobacco use date assessed: 03/09/23 Dental Screening Dental Screen Date: 05/01/23 HPI 3 month follow up HPI Details Pt is a diabetic, on an ARB and a statin. Last A1C was 11.6. Microalbumin is up to date. Denies polyuria, polydipsia, and neuropathy. Pt denies any signs and symptoms of hypoglycemia and does know how to correct it. Pt is currently on prednisone (likely the cause of elevated blood sugars). Pt's A1c was previously in the 6s. She is working with her enterprise cloud architect on a slow taper of prednisone. Eye exam is up to date [facility] Medical History Hidradenitis suppurativa Ear infection Osteoarthritis Dyslipidemia Tinea unguium Lymphocytosis Rheumatoid arthritis HTN (hypertension) Surgical History History of endometrial biopsy History of axillary surgery H/O total hysterectomy with bilateral salpingo-oophorectomy (BSO) History of section Family History Father Colon cancer Diabetes mellitus HTN (hypertension) Mother Diabetes mellitus Daughter No problems noted. 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 1. Little interest or pleasure in doing things: several days 2. Feeling down, depressed, or hopeless: several days 3. Trouble falling or staying asleep, or sleeping too much: several days 4. Feeling tired or having little energy: several days 5. Poor appetite or overeating: several days 6. Feeling bad about yourself - or that you are a failure or have let yourself or your family down: several days 7. Trouble concentrating on things, such as reading the newspaper or watching television: not at all 8. Moving or speaking so slowly that other people could have noticed. Or the opposite - being so fidgety or restless that you have been moving around a lot more than usual: not at all 9. Thoughts that you would be better off or of hurting yourself in some way: not at all Total score: 6 Depression Screening Interpretation: Negative Depression Screening Done: Yes 09491 - PHQ-9 Billing: Yes Source: Developed by Drs. Papa Mathews, Jennifer Hyatt, Ricky Carrasco and colleagues, with an educational alex from [employer] for [employer]. Thrive Questionnaire Date Thrive assessed: 11/29/23 I am a: Patient What is your living situation today?: I have a steady place to live Within the past 12 months, did the food you bought not last and you didn't have the money to get more?: Never true Within the past 12 months, did you worry whether your food would run out before you got money to buy more?: Never true Do you have trouble paying for medicines?: No Do you have trouble getting transportation to medical appointments?: No Do you have trouble paying your heating and electricity bill?: No Do you have trouble taking care of your child, family member or friend?: No Do you have trouble with day-to-day activities such as bathing, preparing meals, shopping, managing finances, etc.?: No Are you interested in more education?: No Please select the resources that you would like help with: None Currently or been in a relationship where the following occur: No concerns reported THRIVE Score: 0 AUDIT C Alcohol Use Questionnaire (AUDIT-C) 1. How often do you have a drink containing alcohol?: Monthly or less 2. How many drinks containing alcohol do you have on a typical day when you are drinking?: 1 or 2 3. How often do you have six or more drinks on one occasion?: Never Total Score: 1 Score Reviewed/Action Taken: Yes MILKA-7 AMB Questionnaire MILKA-7 Date MILKA - 7 assessed: 12/06/23 Feeling nervous, anxious, or on edge: 2 = More than half the days Not being able to stop or control worryin = More than half the days Worrying too much about different things: 2 = More than half the days Trouble relaxin = More than half the days Being so restless that it is hard to sit still: 1 = Several days Becoming easily annoyed or irritable: 2 = More than half the days Feeling afraid as if something awful might happen: 0 = Not at all Total MILKA-7 score (0-4 normal; 5-9 mild; 10-14 moderate; 15-21 severe): 11 Source: Developed by Drs. Papa Mathews, Jennifer Hyatt, Ricky Carrasco and colleagues, with an educational alex from [employer] for [employer]. MILKA-7 Assessment Billing MILKA-7 Assessment Tool: MILKA-7 Assessment 60491 Review of Systems Const Reports as per HPI Physical exam (Primary Care) Vital Signs: Last Vital Signs Pulse 96 12/06/23 15:24 BP 132/80 12/06/23 15:24 Pulse Ox 97 12/06/23 15:24 Oxygen Delivery Method Room Air 12/06/23 15:24 BMI result Body Mass Index 33.1 Tobacco/Smoking Status: Tobacco use Status Tobacco use date assessed 03/09/23 12/06/23 15:26 Patient Tobacco Use Status Current someday Tobacco 12/06/23 15:26 Tobacco use type Cigarette 12/06/23 15:26 e-Cigarette/Vaping Use Never Used 12/06/23 15:26 PHQ-9: PHQ-9 Score PHQ-9: Total score 6 12/06/23 15:47 Depression Screening Interpretation: Negative Thrive Assessment: Date of Thrive Assessment Date Thrive assessed 11/29/23 12/06/23 15:26 Currently or been in a relationship where the following occur: No concerns reported Const General: cooperative Nutritional Appearance: obese Orientation/consciousness: patient oriented x3 Resp Effort & Inspection: normal respiratory effort Auscultation: clear to auscultation bilaterally Cardio Rate: regular rate Rhythm: regular rhythm Heart sounds: S1 normal heart sound present, S2 normal heart sound present and Murmur heart sound present systolic Neuro General: patient oriented x3 Extrem Other: bilat feet: + sensation with use of monofilament, feet intact Psych Appearance: grossly normal Mental Status: mental status grossly normal Speech and movement: Normal speech and movement present Affect: normal affect Attitude: cooperative Thought process: Normal thought process present Thought content: Normal thought content present Insight: Good insight present (Psych) Judgement: Good judgement present (Psych) Coding Level of Care Code Est Pt Level 3 (96474) Diagnoses Diabetes E11.9 Additional Codes MILKA-7 Assessment Billing - MILKA-7 Assessment Tool: MILKA-7 Assessment 14198 ([id number]) Assessment & Plan Assessment & Plan (1) Diabetes: Code(s): E11.9 - Type 2 diabetes mellitus without complications Category: Medical Plan: pt is currently decreasing her prednisone dose, will cont to monitor sugars. Plan The patient agreed to the use of a medical billing supervisor for this encounter. Scribed for GLORIA Anders by Carmina Silver medical billing supervisor, on 12/06/2023 at 15:45 EST.
== END 2023-12-06 16:08 | disposition home or self-care (01) ==
PROVIDERS: PCP Nurse Practitioner Family; Visit Provider Nurse Practitioner Family
DX: E11.9 Type 2 diabetes mellitus without complications (principal)

== ENCOUNTER → 2023-12-06 15:21 | Outpatient (BNVA) | payer OTHER, SELFPAY | PROVIDERS: PCP Nurse Practitioner Family; Visit Provider Nurse Practitioner Family | DX: E11.9 Type 2 diabetes mellitus without complications (principal) | CPT/HCPCS: 96127 ==

== ENCOUNTER 2024-05-27 15:28 | Outpatient (AMB) | payer OTHER, SELFPAY ==
[2024-05-27 15:39] VITALS: BP 122/80; PULSE 98; O2SAT 96; BMI 34.3
--- NOTE | 2024-05-27 15:39 | A.OFFPC_ITS ---
Vital Signs 05/27/24 15:39 Height 5 ft 4 in Weight 200 lb BMI 34.3 BP 122/80 Blood Pressure Location Lt brachial Position Sitting Pulse 98 Pulse Source Pulse Oximeter Pulse Oximetry (%) 96 Oxygen Delivery Method Room Air Intake Visit Reasons: PE Accompanied by: Self / Same As Patient Allergies nut - unspecified [nut] Allergy (Intermediate, Verified 05/27/24 16:31) HIVES aspirin [ASPIRIN] Allergy (Unknown, Verified 05/27/24 16:31) ORAL HIVES, hives ibuprofen [IBUPROFEN] Allergy (Unknown, Verified 05/27/24 16:31) ORAL HIVES, hives peanut Allergy (Unknown, Verified 05/27/24 16:31) hives tree nut Allergy (Unknown, Verified 05/27/24 16:31) hives lisinopril [LISINOPRIL] Adverse Reaction (Unknown, Verified 05/27/24 16:31) DIFFICULTY BREATHING COUGH, cough methotrexate Adverse Reaction (Unknown, Verified 05/27/24 16:31) LFTs elevated Medication List - Last Reconciled 05/27/24 by THOMAS Pearce- albuterol sulfate 90 mcg/actuation (Ventolin HFA) 1 inh inhalation QID PRN atorvastatin 40 mg PO DAILY blood sugar diagnostic (FreeStyle Lite Strips) As directed to test blood sugar once a day blood-glucose meter (FreeStyle Lite Meter kit) As directed to test sugars once a day bupropion HCl XL 300 mg PO DAILY chlorthalidone 25 mg PO QAM clindamycin phosphate 1% 1 appl topical DAILY clonazepam (Klonopin) 0.25 mg (1/2 x 0.5 mg) PO DAILY PRN 30 days dulaglutide (Trulicity) 1.5 mg (0.5 mL) subcut QWEEK empagliflozin (Jardiance) 25 mg PO DAILY ergocalciferol (vitamin D2) 1,250 mcg PO QWEEK folic acid 1 mg PO DAILY irbesartan 300 mg (2 x 150 mg) PO DAILY ketoconazole 2% 1 appl topical BID lancets (FreeStyle Lancets) As directed to test blood sugar once a day metformin ER 1,000 mg (2 x 500 mg) PO BID methotrexate sodium 10 mg PO QWEEK spironolactone 50 mg PO DAILY tocilizumab (Actemra ACTPen) mg subcut Tobacco use date assessed: 05/27/24 Dental Screening Dental Screen Date: 05/27/24 Did you have a dental visit in the last 12 months?: Yes Did you have a dental problem in the last 6 months where you did not have access to dental care?: No Was dental information given to patient?: Patient has dentist HPI PE HPI Details History of Present Illness The patient is a 49-year-old female presenting with concerns related to diabetes management and a urinary tract infection. She reports that her recent hemoglobin A1c reading was above 10, which may have been influenced by recent prednisone use. However, she has since ceased taking the medication. She acknowledges a recent increase in ice cream consumption, contributing to poor dietary control of her diabetes. With respect to her urinary tract infection, plans are in place to perform a repeat urinalysis. The patient denies neuropathy, polyuria, polydipsia, and sinus symptoms. 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 Previously employed at the former job for 35 years prior to resignation. - Nutritional Intake: Increased consumpt ion of ice cream noted, with anticipated dietary adjustments planned. Review of Systems - Cardiovascular: Denies chest pain or p alpitations. - Neurological: Denies neuropathy. - Genitourinary: Denies polyuria and add ed as well as any sinus symptoms. Physical Exam General: Cooperative, healthy appearing, comfortable, no acute distress and well developed, obese Orientation: Patient oriented x3 Limitations: No limitations Head: Normal to inspection Ears: Hearing grossly normal bilaterally Nose: Normal external nose present Face and sinus: Normal facial exam Eyes: Appearance normal, both eyes and all related structures Neck: Normal visual inspection and Yes full ROM Respiratory: Normal respiratory effort and able to speak in complete sentences. Clear to auscultation bilaterally Cardiovascular: Regular rate and rhythm. Just faint systolic murmur GI: Normal to inspection. Soft to palpation and nontender Skin: No rashes or lesions noted Neuro: Patient oriented x3 Extremities: Normal to inspection. No edema, positive sensation with the use of monofilament. Feet were intact bilaterally Results - Labs: Hemoglobin A1c >10. Presence of white blood cells in urine indicating a urinary tract infection. Plan For her Type 2 Diabetes Mellitus, an emphasis on dietary modification, particularly reducing sugar intake, is planned. The patient is aware of the need for improved glycemic control post-prednisone. We will re-evaluate her condition and repeat her A1c in three months. A repeat urinalysis is scheduled to monitor the urinary tract infection. Attention will be paid to any new cardiovascular symptoms, while monitoring the systolic murmur. Discussion Notes I discussed with the patient her current elevated A1c and explained the potential impact of prednisone on her levels. We explored dietary changes that she could make to help manage her diabetes. Regarding the urinary tract infectio n, the importance of repeat urinalysis was emphasized to ensure resolution. Follow-up and continued monitoring were advised, with a plan to reassess in three months. Patient Instructions - Reduce ice cream and sugary food intak e to help control blood sugar levels. - Adhere to hydration recommendations an d monitor for UTI symptoms. - Schedule follow-up appointments in thr ee months for reassessment of diabetes control. - Continue with planned urinalysis repea t to confirm resolution of UTI. - Monitor for any new cardiac symptoms. [facility] Medical History Hidradenitis suppurativa Ear infection Osteoarthritis Dyslipidemia Tinea unguium Lymphocytosis Rheumatoid arthritis HTN (hypertension) Surgical History History of endometrial biopsy History of axillary surgery H/O total hysterectomy with bilateral salpingo-oophorectomy (BSO) History of section Family History Father Colon cancer Diabetes mellitus HTN (hypertension) Mother Diabetes mellitus Daughter No problems noted. 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 1. Little interest or pleasure in doing things: several days 2. Feeling down, depressed, or hopeless: several days 3. Trouble falling or staying asleep, or sleeping too much: several days 4. Feeling tired or having little energy: several days 5. Poor appetite or overeating: not at all 6. Feeling bad about yourself - or that you are a failure or have let yourself or your family down: several days 7. Trouble concentrating on things, such as reading the newspaper or watching television: several days 8. Moving or speaking so slowly that other people could have noticed. Or the opposite - being so fidgety or restless that you have been moving around a lot more than usual: not at all 9. Thoughts that you would be better off or of hurting yourself in some way: not at all Total score: 6 Depression Screening Interpretation: Negative Depression Screening Done: Yes 70488 - PHQ-9 Billing: Yes Source: Developed by Drs. Papa Mathews, Jennifer Hyatt, Ricky Carrasco and colleagues, with an educational alex from [employer]. Thrive Questionnaire Date Thrive assessed: 05/27/24 I am a: Patient What is your living situation today?: I have a steady place to live Within the past 12 months, did the food you bought not last and you didn't have the money to get more?: Never true Within the past 12 months, did you worry whether your food would run out before you got money to buy more?: Never true Do you have trouble paying for medicines?: No Do you have trouble getting transportation to medical appointments?: No Do you have trouble paying your heating and electricity bill?: No Do you have trouble taking care of your child, family member or friend?: No Do you have trouble with day-to-day activities such as bathing, preparing meals, shopping, managing finances, etc.?: No Are you currently unemployed and looking for a job?: No Are you interested in more education?: No Please select the resources that you would like help with: None Currently or been in a relationship where the following occur: No concerns reported THRIVE Score: 0 AUDIT C Alcohol Use Questionnaire (AUDIT-C) 1. How often do you have a drink containing alcohol?: Monthly or less 2. How many drinks containing alcohol do you have on a typical day when you are drinking?: 1 or 2 3. How often do you have six or more drinks on one occasion?: Never Total Score: 1 Score Reviewed/Action Taken: Yes MILKA-7 AMB Questionnaire MILKA-7 Date MILKA - 7 assessed: 05/27/24 Feeling nervous, anxious, or on edge: 2 = More than half the days Not being able to stop or control worryin = More than half the days Worrying too much about different things: 2 = More than half the days Trouble relaxin = Several days Being so restless that it is hard to sit still: 1 = Several days Becoming easily annoyed or irritable: 1 = Several days Feeling afraid as if something awful might happen: 0 = Not at all Total MILKA-7 score (0-4 normal; 5-9 mild; 10-14 moderate; 15-21 severe): 9 Source: Developed by Drs. Papa Mathews, Jennifer Hyatt, Ricky Carrasco and colleagues, with an educational alex from [employer]. MILKA-7 Assessment Billing MILKA-7 Assessment Tool: MILKA-7 Assessment 14737 (denies any si or hi) Physical exam (Primary Care) Tobacco/Smoking Status: Tobacco use Status Tobacco use date assessed 05/27/24 05/27/24 15:40 Patient Tobacco Use Status Current someday Tobacco 05/27/24 15:40 Tobacco use type Cigarette 05/27/24 15:40 e-Cigarette/Vaping Use Never Used 05/27/24 15:40 PHQ-9: PHQ-9 Score PHQ-9: Total score 6 05/27/24 15:40 Depression Screening Interpretation: Negative Thrive Assessment: Date of Thrive Assessment Date Thrive assessed 05/27/24 05/27/24 15:40 Currently or been in a relationship where the following occur: No concerns reported Coding Level of Care Code Est Pt Prev Care 40-64y(24158) Diagnoses Abnormal urinalysis R82.90 Diabetes E11.9 Physical exam Z00.00 Additional Codes PHQ-9 - 12696 - PHQ-9 Billing: Yes ([id number]) MILKA-7 Assessment Billing - MILKA-7 Assessment Tool: MILKA-7 Assessment 15878 ([id number]) Assessment & Plan Assessment & Plan (1) Abnormal urinalysis: Code(s): R82.90 - Unspecified abnormal findings in urine Category: Medical (2) Diabetes: Code(s): E11.9 - Type 2 diabetes mellitus without complications Category: Medical (3) Physical exam: Code(s): Z00.00 - Encounter for general adult medical examination without abnormal findings Category: Medical Plan . Orders: Orders Microalbumin, Random (w Creat) Today E11.9 - Type 2 diabetes mellitus without complications UA CC w/rflx Micro + Cult Today R82.90 - Unspecified abnormal findings in urine Urine Culture Today R82.90 - Unspecified abnormal findings in urine Medications: Refilled clonazepam (Klonopin) administer 30 minutes before bedtime 0.25 mg (1/2 x 0.5 mg) PO DAILY 30 days PRN 15 tabs 1RF anxiety attacks
--- OUTSIDE RECORDS SUMMARY | 2024-05-27 17:27 | XMS_ITS ---
Author Organization [facility] Address [address] [place] [address] Care Team Providers Care Trophy Assembler Name Role Phone Darinel Connors Primary Care Provider Unav ailable Joseph Márquez Unavailable [phone] Encounters Encounter Location Date Provider Diagnosis [address] [address] 05/20/2024 Joseph Márquez Plan Of Treatment Next Appt Details Provider Name:Joseph Márquez , 08/05/2024 04:00:00 PM, [address] [place] [address], [place], [address], Progress Notes * Leah BURROB:1974 (49 yo F)Acc No.[id number]:05/20/2024 Progress Note Patient:?Liliana BURR Provider:?Joseph Márquez DPM :1975???Age:49 Y???Sex:Female D ate:05/20/2024 [address] [place] Pcp:STARR Anders Subjective: * Chief Complaints: * ??? * Medical History:? Objective: * Vitals:? Assessment: Plan: * Treatment: * Images: * The named appointment provid er may or may not be the originator of this progress note, and it is not deemed complete until electronically signed by the appointment provider. Sign off status: Pending * Provider:?Joseph Márquez DPM Date:?2024 Generated for Tracey rivera/Sondra/Jamar on:?05/27/2024 05:27 PM EDT
--- OUTSIDE RECORDS SUMMARY | 2024-05-27 17:28 | XMS_ITS ---
Author Organization [facility] Address [address] [place] [address] Care Team Providers [employer] Developer Name Role Phone Darinel Connors Primary Care Provider Unav ailable Joseph Márquez Unavailable [phone] REASON FOR VISIT rs from 05/20/24 Encounters Encounter Location Date Provider Diagnosis [facility] [address] [place] [address] 05/10/2024 Joseph Márquez Plan Of Treatment Next Appt Details Provider Name:Joseph Márquez , 08/05/2024 04:00:00 PM, [address] [facility], [address], [address], Progress Notes * Jareth BURRGeminiOB:1974 (49 yo F)Acc No.[id number]:05/10/2024 Patient:?Liliana BURR :1975???Age:49 Y???Sex:Female Address:[address] [place], [address] * true * Date:? Generated for Cotyi miguel/Sondra/eTransmitting on:?05/27/2024 05:28 PM EDT
--- OUTSIDE RECORDS SUMMARY | 2024-05-27 17:28 | XMS_ITS ---
[facility] Organization [facility] Address [address] [place] [address] Care Team Providers Care Clinical Evaluator Name Role Phone Darinel Connors Primary Care Provider Unav ailable Joseph Márquez Unavailable [phone] Allergies Allergen (clinical drug ingredient) Drug/Non Drug Allergy documented on EMR Reaction Allergy Type Onset Date Status ibuprofen Advil hives Drug Allergy Active Motrin hives Drug Allergy Active aspirin Aspirin hives Drug Allergy Active ibuprofen Ibuprofen hives Drug Allergy Active Tree Nuts Unknown Allergy Active REASON FOR VISIT At Risk Footcare, Painful Nail(s) aggrevated by shoes and causing difficulty standing/walking., ToeIrritation Medications Medication SIG (Take, Route, Frequency, Duration) Notes Start Date End Date Status Doxycycline (Rosacea) 40 MG 1 capsule on an empty stomach in the morning Orally Once a day Not-Taking Extra Depth Orthopedic Shoes (1 Pair) with Customized Heat Molded Multidensity Innersoles (3 Pair) as directed Dx: NIDDM (E11.9), Hammertoe Foot Deformity (M20.41,M20.42), Preulcerative Skin Lesion(s) (L85.1) Active Nystatin Not-Taking Lisinopril 10 MG 1 tablet Orally Once a day for 30 day(s) Not-Taking Methotrexate Sodium 5 MG 1.5 tablets Ora lly for 30 day(s) Not-Taking ZyrTEC Allergy 10 MG 1 tablet Orally Once a day for 30 day(s) Not-Taking hydroCHLOROthiazide 50 MG 1 tablet Orall y Once a day for 30 day(s) Not-Taking Naprosyn 500 MG 1 tablet Orally Twice a day for 30 day(s) Not-Taking glyBURIDE 5 MG 1 tablet Orally Once a day for 30 day(s) Not-Taking Folic Acid 1 MG 1 tablet Orally Once a day for 30 day(s) Not-Taking Trulicity Active Multivitamins as directed Orally Active metFORMIN HCl 500 MG 1 tablet with evening meal Orally Once a day for 30 day(s) Active Jardiance Active Enbrel 50 MG/ML 0.5 ml Subcutaneous for 30 day(s) Not-Taking Calcium 600-200 MG-UNIT 1 tablet with fo od Orally Once a day for 30 day(s) Active Chlorthalidone Activ e Humira Not-Taking Avapro 75 MG 1 tablet Orally Once a day for 30 day(s) Active Atorvastatin Calcium Active Vitamin D jules dose once a week Active Actemra Active Social History Tobacco Use: Social History Observation Description Date Details (start date - stop date) Current Smoker NA - NA Tobacco Use/Smoking Question Answer Notes Are you a: current smoker How often do you smoke cigarettes? some days, bu t not every day How many cigarettes a day do you smoke? 5 or les s How soon after you wake up d o you smoke your first cigarette? after 60 minutes Are you interested in quitting? Thinking about q uitting Additional Findings: Tobacco Non-User Ex-cigaret te smoker Alcohol Screen Question Answer Notes Did you have a drink containing alcohol in the p ast year? No Points 0 Interpretation Negative Tobacco use other than smoking: Question Answer Notes Are you an other tobacco user? No Vital Signs Height 5ft 3in in 01/29/2024 Weight 198 lbs 01/29/2024 BMI 35.07 kg/m2 01/29/2024 Procedures Procedure Date Ordered Date Performed Result Body Sit e 02524-[id number] NAIL, 6 OR MORE 01/29/2024 N/A Encounters Encounter Location Date Provider Diagnosis [facility] [address] [address] 01/29/2024 Joseph Márquez Pain in right toe(s) M79.674 ; Tinea unguium B35.1 ; Pain in left toe(s) M79.675 ; Type 2 diabetes mellitus without complication E11.9 ; Other hammer toe(s) (acquired), left foot M20.42 and Other hammer toe(s) (acquired), right foot M20.41 Assessments Encounter Date Diagnosis (ICD Code) Assessment Notes Treatment Notes Treatment Clinical Notes Section Notes 01/29/2024 Pain in right toe(s) (ICD-10 - M79.674) 01/29/2024 Tinea unguium (ICD-10 - B35.1) 01/29/2024 Pain in left toe(s) (ICD-10 - M79.675) 01/29/2024 Type 2 diabetes mellitus without complication (ICD-10 - E11.9) 01/29/2024 Other hammer toe(s) (acquired), left foot (ICD-10 - M20.42) 01/29/2024 Other hammer toe(s) (acquired), right foot (ICD-10 - M20.41) Patient Educated with: DIABETIC FOOT CARE INSTRUCTIONS.p df (DIABETIC FOOT CARE INSTRUCTIONS.p df) Plan Of Treatment Medication Medication Name Sig Start Date Stop Date Notes Extra Depth Orthopedic Shoes (1 Pair) with Customized Heat Molded Multidensity Innersoles (3 Pair) as directed Dx: NIDDM (E11.9), Hammertoe Foot Deformity (M20.41,M20.42), Preulcerative Skin Lesion(s) (L85.1) Treatment Notes Assessment Notes Other hammer toe(s) (acquired), right fo ot Patient Educated with: DIABETIC FOOT CARE INSTRUCTIONS.pdf (DIABETIC FOOT CARE INSTRUCTIONS.pdf) Pending Test Test Name Order Date [id number] NAIL, 6 OR MORE 01/29/2024 Next Appt Details Follow Up: prn, Reason: Provider Name:Joseph Márquez , 08/05/2024 04:00:00 PM, [address], [address], [place], [address], Procedure Notes * Category Sub-Category Detail Notes Debride Nail 6-10 Nail debridement Performance o f this nail treatment by a nonprofessional would put this patients foot and overall health at risk. Therefore, debridement to affected nail(s), as described in exam, was performed extensively to reduce/remove overall nail length, girth, thickness, subungual debris, and necrotic tissue, by manual and/or electrical means through the use of a nail nipper and/or dremel-type grinder hand, to a more viable healthy nail plate or bed tissue 6-10 nails in total. Silver nitrate was used for any petechial bleeding as necessary. Definitive antifungal treatment options, both pharmaceutical and surgical, have been reviewed and discussed with the patient. The patient solely prefers the use of intermittent/as needed professional debridement services for their nail condition and understands the need for additional periodic treatments to maintain effectiveness in symptomatic relief - 95993 Progress Notes * Leah BURROB:1974 (48 yo F)Acc No.[id number]:01/29/2024 Progress Note Patient:?Liliana BURR Provider:?Joseph Márquez DPM :1975???Age:48 Y???Sex:Female D ate:01/29/2024 Address:[address] [place] [address], [place] [facility] Pcp:STARR Anders Subjective: * Chief Complaints: * ???At Risk FootcarePainful N ail(s) aggrevated by shoes and causing difficulty standing/walking.Toe Irritation * HPI: ???At Risk footcare:?Pt States Last PCP Visit:?Date?12/05/2023 ???Toe pain:?Location:?B/L feet.?Duration:?several years.?Course:?worse.?Aggravated by:?shoes, any pressure.?Treatments:?change in shoes.? * ROS:?General/Constitutional:?Nausea?denies.?Vomiting?denies.?Hunger Thirst?denies.?Loss appetite?denies.?Chills?denies.?Fatigue?denies.?Fever?denies.?Night Sweats?denies.?Unexplained weight loss?denies.?Ophthalmologic:?Blurred vision?denies.?Red eye?denies.?HEENTM:?Dentures?denies.?Dizziness?denies.?Glasses/contacts?admits.?Retinopathy?de nies.?Blurred/double vision?denies.?TMJ?denies.?Discharge/drainage?denies.?Implants?denies.?Hard of hearing denies.?Difficulty chewing/swallowing/speaking?denies.?Nose bleeds?denies.?Sore mouth?denies.?Swollen glands?denies.?Respiratory:?On Oxygen?denies.?Pneumonia/pleurisy?denies.?Bronchitis?denies.?Emphysema?denies.?C oughing?denies.?Cough blood?denies.?Shortness of breath?denies.?Wheezing?denies.?Cardiovascular:?Pacemaker?denies.?MVP?denies.?WPW?denies.?CHF?denies.?Heart attack?denies.?Septal defect?denies.?Rapid beat?denies.?Chest pain ?denies.?Atrial Fib.?denies.?Murmur/Palpitations?denies.?Gastrointestinal:?Hemorrhoids?denies.?Stomach/Abdominal pain?denies.?Dark blood stool?denies.?Irritable bowel ?denies.?Constipation?denies.?Diarrhea?denies.?Vomiting?denies.?Hematology:?Swelling?denies.?Bruising?denies.?Bleeding problem?denies.?Genitourinary:?Blood urine?denies.?Frequent/Painfu/urination/bladder control?denies.?Kidney stones?denies.?Infection (UTI)?denies.?Nephropathy?denies.?Musculoskeletal:?Hammertoes?admits.?Bunions?denies.?Scoliosis/kyphosis?denies.?Muscle cramps / walking?denies.?Generalized aches and pains?denies.?Weakness?denies.?Integ.:?Lowery?denies.?Scars?denies.?Corns/calluses?admits.?Ingrown nails?admits.?Painful nails?admits.?Rashes?denies.?Neurologic:?Difficulty sleeping?denies.?Bipolar?denies.?Brain disorder?denies.?Balance trouble?denies.?Confusion?denies.?Fainting/blackouts?denies.?Headache?denies.?Tr emors?denies.? * Medical History:? * Surgical History:? s ection 1996axila sx 2013colonoscopy 10/31/2013hysterectomy 01/20/2015cleaned out abscess, x2 06/2023 * Hospitalization/Major Diagno stic Procedure:?Hysterectomy 01/20/2015[facility]- probable sepsis, abscess, 1 week stay 06/2023 * Family History:?Mother: aliv e, diagnosed with Unspecified essential hypertension, Family history of arthritis, Diabetic - NIDDM.?Father: alive, diagnosed with Diabetic - NIDDM, Unspecified essential hypertension.?Paternal Grand Father: poor circulation.?Spouse: alive.?1 daughter(s) . .? * Social History:?Tobacco Use:?Tobacco Use/Smoking?Are you a:?current smoker ?How often do you smoke cigarettes??some days, but not every day ?How many cigarettes a day do you smoke??5 or less ?How soon after you wake up do you smoke your first cigarette??after 60 minutes ?Are you interested in quitting??Thinking about quitting ?Additional Findings: Tobacco Non-User?Ex-cigarette smoker ?Tobacco use other than smoking?Are you an other tobacco user??No ???Drugs/Alcohol:?Drugs?Have you used drugs other than those for medical reasons in the past 12 months??No ?Alcohol Screen?Did you have a drink containing alcohol in the past year??No ?Points?0 ?Interpretation?Negative ???Miscellaneous:?Caffeine: yes, 3-5 cups per day. ?Children: yes, 1. ?Exercise: no. ?Marital status: . ?Occupation: [employer]. * Medications:?TakingActemra V itamin D , Notes to Pharmacist: jules dose once a weekAtorvastatin Calcium Avapro 75 MG Tablet 1 tablet Orally Once a day Chlorthalidone Calcium 600-200 MG-UNIT Tablet 1 tablet with food Orally Once a day Jardiance metFORMIN HCl 500 MG Tablet Extended Release 24 Hour 1 tablet with evening meal Orally Once a day Multivitamins Capsule as directed Orally Trulicity Extra Depth Orthopedic Shoes (1 Pair) with Customized Heat Molded Multidensity Innersoles (3 Pair) as directed Dx: NIDDM (E11.9), Hammertoe Foot Deformity (M20.41,M20.42), Preulcerative Skin Lesion(s) (L85.1) Taking Actemra Taking Vitamin D , Notes to Pharmacist: jules dose once a weekTaking Atorvastatin Calcium Taking Avapro 75 MG Tablet 1 tablet Orally Once a day Taking Chlorthalidone Taking Calcium 600-200 MG-UNIT Tablet 1 tablet with food Orally Once a day Taking Jardiance Taking metFORMIN HCl 500 MG Tablet Extended Release 24 Hour 1 tablet with evening meal Orally Once a day Taking Multivitamins Capsule as directed Orally Taking Trulicity Taking Extra Depth Orthopedic Shoes (1 Pair) with Customized Heat Molded Multidensity Innersoles (3 Pair) as directed Dx: NIDDM (E11.9), Hammertoe Foot Deformity (M20.41,M20.42), Preulcerative Skin Lesion(s) (L85.1) Not-Taking/PRNHumira Enbrel 50 MG/ML Solution 0.5 ml Subcutaneous Folic Acid 1 MG Tablet 1 tablet Orally Once a day glyBURIDE 5 MG Tablet 1 tablet Orally Once a day ZyrTEC Allergy 10 MG Tablet 1 tablet Orally Once a day Naprosyn 500 MG Tablet 1 tablet Orally Twice a day hydroCHLOROthiazide 50 MG Tablet 1 tablet Orally Once a day Methotrexate Sodium 5 MG Tablet 1.5 tablets Orally Lisinopril 10 MG Tablet 1 tablet Orally Once a day Nystatin Doxycycline (Rosacea) 40 MG Capsule Delayed Release 1 capsule on an empty stomach in the morning Orally Once a day Medication List reviewed and reconciled with the patientNot-Taking/PRN Humira Not-Taking/PRN Enbrel 50 MG/ML Solution 0.5 ml Subcutaneous Not-Taking/PRN Folic Acid 1 MG Tablet 1 tablet Orally Once a day Not-Taking/PRN glyBURIDE 5 MG Tablet 1 tablet Orally Once a day Not-Taking/PRN ZyrTEC Allergy 10 MG Tablet 1 tablet Orally Once a day Not-Taking/PRN Naprosyn 500 MG Tablet 1 tablet Orally Twice a day Not- Taking/PRN hydroCHLOROthiazide 50 MG Tablet 1 tablet Orally Once a day Not-Taking/PRN Methotrexate Sodium 5 MG Tablet 1.5 tablets Orally Not-Taking/PRN Lisinopril 10 MG Tablet 1 tablet Orally Once a day Not-Taking/PRN Nystatin Not-Taking/PRN Doxycycline (Rosacea) 40 MG Capsule Delayed Release 1 capsule on an empty stomach in the morning Orally Once a day Medication List reviewed and reconciled with the patient * Allergies:?Advil: hivesMotri n: hivesAspirin: hivesTree NutsIbuprofen: hivesyes[Allergies Verified] Objective: * Vitals:?Ht: 5ft 3in, Wt:198, BMI:35.07, Shoe size: 8.5, BS: does not test, Ht- cm: 160.02 cm, Wt-k.81 kg. * Examination: ???Nails: ?NAILS are:?Elongated, overgrown, dystrophic, lytic, greater than 3mm thick, discolored and friable with crumbly malodorous subungual debris, with pain on palpation, 1-5 B/L.?Orthopedic: ?MUSCLE STRENGTH:?5/5 all groups in a symmetrical fashion , B/L.?FOOT MORPHOLOGY:? No Charcot collapse/destruction noted at MTJ.?DIGITAL DEFORMITIES:?Digital contracture, PIPJ, 2-5 B/L(SAVE T6), incompl-reducible to push-up test, no over, nor underlapping , with evidence of shoe producing skin irritation.?FOOTWEAR:?worn, OT were inspected and noted to be severely worn , in poor condition not giving proper support at the present time , shoe gear properties exacerbate patients foot/toe deformity.?Dermatologic: ?SKIN FINDINGS:?Skin exam reveals Keratotic lesion(s) located at,Medial, IPJ, TA,Medial, IPJ, T5.?Vascular: ?DP PULSES(B):?2/4, B/L.?PT PULSES(B):?2/4, B/L.?CAPILLARY FILL TIME:?immediate, all digits, B/L.?TROPHIC CONDITION-TEXTURE/ELASTICITY/TURGOR/HAIR GROWTH(B):?normal, B/L.?TEMPERTURE GRADIENT(C):?normal, warm to cool, proximal to distal, B/L, proximal to distal, B/L.?PIGMENTATION:?normal, B/L.?EDEMA(C):?absent, B/L.?Neurological: ?SENSORY:?Neurological exam reveals intact sensorium, pain sensation normal, vibration sensation intact, pinprick sensation is normal in the lower extremities, 5.07 monofilament test performed at plantar aspects of 5 varied sites per foot shows sensation, normal, B/L, Pt denies, anesthesia, burning, paresthesia, tingling, B/L.?Ophthalmology Referral: ?DIABETES EYE EXAM?Diabetic Retinopathy Screening:?Yes ?Retinal Screening Performed:?Yes ?Findings of Diabetic Eye Exam:?no retinopathy?General Examination: ?GENERAL APPEARANCE:?Reveals a pleasant, alert, well nourished, well- developed, well hydrated individual, who demonstrates proper attention to hygiene/body habitus, and is in no acute distress, Pt serves as own historian for office visit today.?ORIENTED:?person, place, and time.?FOOT EXAM:?Lower Extremity Neurological Exam performed:?Yes ?Footwear Evaluation?Footwear Evaluation performed:?Yes??? Assessment: * Assessment: 1.?Pain in right toe(s) - M7 9.674???2.?Tinea unguium - B35.1???3.?Pain in left toe(s) - M79.675???4.?Type 2 diabetes mellitus without complication - E11.9???5.?Other hammer toe(s) (acquired), left foot - M20.42???Specify :Chronic problem, Worse (4),Rx Management (4)???6.?Other hammer toe(s) (acquired), right foot - M20.41 (Primary)???Specify :Chronic problem, Worse (4),Rx Management (4)??? Plan: * Treatment: 2.?Tinea unguium?Procedure: [id number] NAIL, 6 OR MORE * Procedures:?Debride Nail 6-10:?Nail debridement?Performance of this nail treatment by a nonprofessional would put this patients foot and overall health at risk. Therefore, debridement to affected nail(s), as described in exam, was performed extensively to reduce/remove overall nail length, girth, thickness, subungual debris, and necrotic tissue, by manual and/or electrical means through the use of a nail nipper and/or dremel-type grinder hand, to a more viable healthy nail plate or bed tissue 6-10 nails in total. Silver nitrate was used for any petechial bleeding as necessary. Definitive antifungal treatment options, both pharmaceutical and surgical, have been reviewed and discussed with the patient. The patient solely prefers the use of intermittent/as needed professional debridement services for their nail condition and understands the need for additional periodic treatments to maintain effectiveness in symptomatic relief - 85662.? * Procedure Codes:?43404 DEBRI DE NAIL, 6 OR MORE * Preventive Medicine:? ??Counseling:?Tobacco use:?Type of Tobacco Use Cessation Counseling provided?Smoking effects education ?Discussion:?-14: Office or other outpatient visit for the evaluation and management of an established patient, which required a medically appropriate history and/or examination and MODERATE level of DECISION MAKING for: 1 OR MORE CHRONIC PROBLEM(S) THATS WORSENING, 2 STABLE CHRONIC PROBLEMS, A NEWLY DIAGNOSED PROBLEM WITH UNCERTAIN PROGNOSIS, AN ACUTE COMPLICATED INJURY WITH MULTIPLE TREATMENT OPTIONS, OR AN ACUTE PROBLEM WITH ACCOMPANYING SYSTEMIC SYMPTOMS, THAT POSE(S) A MODERATE RISK OF MORBIDITY. THIS CONDITION MAY ALSO INCLUDE RX DRUG MANAGEMENT, OR A DECISON FOR MINOR SURGERY. The visit on the day of the encounter encompassed interpreting the data and educating the patient as to the nature of their condition, treatment options available according to their individual PMH, meds, allergies, and overall health/living conditions, as well as any potential risks or complications that may occur from a failure to adhere to, and participate in, the recommended course of therapy. The discussion included a complete verbal, and/or written explanation of the examination results, any x-rays taken, the proposed diagnosis, and outline of the treatment plan. A schedule for future care needs was also explained. The patient verbalized an understanding of the instructions at this time and agreed to be an active participant in their treatment. If the patient should think of any questions or concerns after the visit, I have encouraged the patient to call the office.?Digital Surgery:?Digital surgery was discussed with the patient, We elected to try conservative treatment at the present time, due to the patients medical history and increased asssociated post-operative risks.?Digital Treatment:?HT- I explained to the patient the possible etiologies of Hammertoes, including genetics/foot type/shoegear/activity level/exercise routine and the risks/benefits of all the different treatment options for their pain including: No treatment at all, Rest, Ice, New/supportive/wider/deeper Shoegear, Digital Padding/Strapping/Taping/Bracing/Gel protective sleeves, Foot/Ankle AFO Bracing, Stretching exercises, Deep Tissue Massage, Arch support/shoe inserts with splay metatarsal padding, and Custom orthoses. I insisted that any digital devices be removed daily and not worn overnight for safety. The patient is to carefully examine the toes daily for any skin irritation while using any splinting or padding device. The advantages and disadvantages of each option were discussed and the patients questions re: shoegear, padding, custom vs prefabricated inserts, activity level, and consistency in home treatment regimens for optimal success were answered to their verbally confirmed satisfaction.?Shoe Gear Counseling:?SHOE Rx - The patient was counseled in great detail on their muscoloskeletal foot and toe deformities which coincided with the dermatological presentations visualized on exam. We discussed how their deformities put the integrity of their feet at risk for potential pedal complications which makes the accomidative diabetic shoes and cutomizable inserts medically necessary. We discussed the different shoe and insert treatment types and options, as well as the important advantages for adhering to regularly wearing these accomidative devices daily. The patient was made aware of the fact that a failure to abide by these recommedations may be deleterious to their foot health as they are able to prevent many pedal complications such as skin irritation, skin ulceration, infection, and even loss of toe/foot/leg/or life. Time was also spent with the patient dispensing and discussing proper diabetic footcare techniques including daily skin moisturization, daily foot inspection for any interruption in skin integrity including open lesions, or sign of infection such as redness/malodor/drainage/swelling. Also discussed and recommended were procedures regarding daily shoe inspection for the presence of internal foreign bodies as well as any visualized irregular shoe or insert wear. Patient questions re: shoes, inserts, and self foot inspections were answered to their satisfaction as the patient verbally confirmed a full understanding of the above information. A Rx for Extra Depth Orthopedic Shoes with 3 pair of custom heat-molded inserts was dispensed.? ??Screening/Special Tests:?Fall Risk?Assessment:?Performed ?Plan of Care:?Documented ?Screening:?No falls in the past year ?FALLS: Screening for Future Fall Risk?Have you had any falls with injury in the past year??No * Follow Up:?prn * Images: * Sign off status: Completed true * Provider:?Joseph Márquez DPM Date:?2023 Generated for Tracey rivera/Sondra/Jamar on:?05/27/2024 05:27 PM EDT History and Physical Notes * HPI (History of Present Illness) Category Sub-Category Detail Notes Category Not es Toe pain Location: B/L feet Duration: several years Course: worse Aggravated by: shoes, any pressure Treatments: change in shoes At Risk footcare Pt States Last PCP Visit: Date: 4 Examination Category Sub-Category Detail Notes Category Not es Neurological SENSORY: Neurological exa m reveals intact sensorium, pain sensation normal, vibration sensation intact, pinprick sensation is normal in the lower extremities, 5.07 monofilament test performed at plantar aspects of 5 varied sites per foot shows sensation, normal, B/L, Pt denies, anesthesia, burning, paresthesia, tingling, B/L Dermatologic SKIN FINDINGS: Skin exam reveal s Keratotic lesion(s) located at, Medial, IPJ, TA, Medial, IPJ, T5 Orthopedic FOOT MORPHOLOGY: No Charcot anh apse/destruction noted at MTJ FOOTWEAR EVALUATION: worn, OT were inspe cted and noted to be severely worn , in poor condition not giving proper support at the present time , shoe gear properties exacerbate patients foot/toe deformity DIGITAL DEFORMITIES: Digital contracture , PIPJ, 2-5 B/L(SAVE T6), incompl- reducible to push-up test, no over, nor underlapping , with evidence of shoe producing skin irritation MUSCLE STRENGTH: 5/5 all groups in a symmetrical fashion , B/L General Examination GENERAL APPEARANCE: Reveals a pleasant, alert, well nourished, well-developed, well hydrated individual, who demonstrates proper attention to hygiene/body habitus, and is in no acute distress, Pt serves as own historian for office visit today FOOT EXAM: Lower Extremity Neurological Exa m performed:: Yes ORIENTED: person, place, and t jean paul Footwear Evaluation Footwear Evaluation performe d:: Yes Ophthalmology Referral DIABETES EYE EXAM Diabetic Retinopa thy Screening:: Yes Retinal Screening Performed:: Yes Findings of Diabetic Eye Exam:: no retin opathy Vascular DP PULSES (B): 2/4, B/L PT PULSES (B): 2/4, B/L CAPILLARY FILL TIME: immediate, all digi ts, B/L TEMPERTURE GRADIENT (C): normal, warm to cool, proximal to distal, B/L, proximal to distal, B/L TROPHIC CONDITION-TEXTURE/ELASTICITY/TURGOR/HAIR GROWTH (B): normal, B/L EDEMA (C): absent, B/L PIGMENTATION: normal, B/L Nails NAILS are: Elongated, overg rown, dystrophic, lytic, greater than 3mm thick, discolored and friable with crumbly malodorous subungual debris, with pain on palpation, 1-5 B/L
--- OUTSIDE RECORDS SUMMARY | 2024-05-27 17:28 | XMS_ITS | Patient Health Record ---
Author Organization [facility] Address [address] [facility] [place] [address] Care Team Providers Care Retort Furnace Operator Name Role Phone Darinel Connors Primary Care Provider Unav Joseph Dupont Unavailable [phone] Allergies Allergen (clinical drug ingredient) Drug/Non Drug Allergy documented on EMR Reaction Allergy Type Onset Date Status ibuprofen Advil hives Drug Allergy Active Motrin hives Drug Allergy Active aspirin Aspirin hives Drug Allergy Active ibuprofen Ibuprofen hives Drug Allergy Active Tree Nuts Unknown Allergy Active Results Component Value Reference Range Notes HEMOGLOBIN A1C (GLYCOHEMOGLO BIN) Reviewed date:05/31/2023 04:32:01 PM Interpretation: Performing Lab: Notes/Report: HEMOGLOBIN A1C % (HH) 6.7 Reason For Referral No Information Medications Medication SIG (Take, Route, Frequency, Duration) Notes Start Date End Date Status Calcium 600-200 MG-UNIT 1 tablet with fo od Orally Once a day for 30 day(s) Active Chlorthalidone Activ e ZyrTEC Allergy 10 MG 1 tablet Orally Once a day for 30 day(s) Not-Taking Humira Not-Taking hydroCHLOROthiazide 50 MG 1 tablet Orall y Once a day for 30 day(s) Not-Taking Naprosyn 500 MG 1 tablet Orally Twice a day for 30 day(s) Not-Taking Trulicity Active Doxycycline (Rosacea) 40 MG 1 capsule on an empty stomach in the morning Orally Once a day Not-Taking Extra Depth Orthopedic Shoes (1 Pair) with Customized Heat Molded Multidensity Innersoles (3 Pair) as directed Dx: NIDDM (E11.9), Hammertoe Foot Deformity (M20.41,M20.42), Preulcerative Skin Lesion(s) (L85.1) Active Multivitamins as directed Orally Active Nystatin Not-Taking metFORMIN HCl 500 MG 1 tablet with evening meal Orally Once a day for 30 day(s) Active Lisinopril 10 MG 1 tablet Orally Once a day for 30 day(s) Not-Taking Jardiance Active Methotrexate Sodium 5 MG 1.5 tablets Ora lly for 30 day(s) Not-Taking Avapro 75 MG 1 tablet Orally Once a day for 30 day(s) Active glyBURIDE 5 MG 1 tablet Orally Once a day for 30 day(s) Not-Taking Atorvastatin Calcium Active Folic Acid 1 MG 1 tablet Orally Once a day for 30 day(s) Not-Taking Vitamin D jules dose once a week Active Enbrel 50 MG/ML 0.5 ml Subcutaneous for 30 day(s) Not-Taking Actemra Active Immunizations Vaccine Route Administration Date Status Comme nts Influenza Unknown 12/15/2014 Administered Influenza Unknown 10/28/2016 Administered Influenza Unknown 12/13/2017 Administered Influenza Unknown 11/12/2020 Administered Social History Tobacco Use: Social History Observation [...] Are you an other tobacco user? No Problems Problem Type SNOMED Code ICD Code Onset Dates Problem Status W/U Status Risk Notes Problem Acquired hammer toe of right foot (854169784854324 5) Other hammer toe(s) (acquired), right foot (M20.41) Active confirmed Problem Acquired hammer toe of left foot (165417094064053 3) Other hammer toe(s) (acquired), left foot (M20.42) Active confirmed Problem Type 2 diabetes mellitus without complication (191285045) Type 2 diabetes mellitus without complication (E11.9) Active confirmed Vital Signs Height 5ft 3in in 01/29/2024 Weight 198 lbs 01/29/2024 BMI 35.07 kg/m2 01/29/2024 Procedures Procedure Date Ordered Date Performed Result Body Sit e 33996-IOPQPJY NAIL, 6 OR MORE 05/31/2023 N/A 68568-RBEMCPK NAIL, 6 OR MORE 01/29/2024 N/A Encounters Encounter [facility] Date [facility] [address] [facility]23 Joseph Yulisa Pain in right toe(s) M79.674 ; Tinea unguium B35.1 ; Pain in left toe(s) M79.675 and Type 2 diabetes mellitus without complication E11.[address] [address] 01/29/2024 Joseph Yulisa Pain in right toe(s) M79.674 ; Tinea unguium B35.1 ; Pain in left toe(s) M79.675 ; Type 2 diabetes mellitus without complication E11.9 ; Other hammer toe(s) (acquired), left foot M20.42 and Other hammer toe(s) (acquired), right foot M20.41 [facility] [address] 10/20/[address] [address] 10/20/[address] [address] 05/10/2024 Joseph Márquez Assessments Encounter Date Diagnosis (ICD Code) Assessment Notes Treatment Notes Treatment Clinical Notes Section Notes 05/31/2023 Tinea unguium (ICD-10 - B35.1) 05/31/2023 Pain in right toe(s) (ICD-10 - M79.674) 01/29/2024 Pain in right toe(s) (ICD-10 - M79.674) 01/29/2024 Tinea unguium (ICD-10 - B35.1) 05/31/2023 Pain in left toe(s) (ICD-10 - M79.675) 01/29/2024 Pain in left toe(s) (ICD-10 - M79.675) 05/31/2023 Type 2 diabetes mellitus without complication (ICD-10 - E11.9) 01/29/2024 Type 2 diabetes mellitus without complication (ICD-10 - E11.9) 01/29/2024 Other hammer toe(s) (acquired), left foot (ICD-10 - M20.42) 01/29/2024 Other hammer toe(s) (acquired), right foot (ICD-10 - M20.41) Patient Educated with: DIABETIC FOOT CARE INSTRUCTIONS.p df (DIABETIC FOOT CARE INSTRUCTIONS.p df) Plan Of Treatment Pending Test Test Name Order Date Hemoglobin A1c 11/18/2014 17968-ULDGRWY NAIL, 6 OR MORE 03/06/2015 98428-ZQXCDRY NAIL, 6 OR MORE 05/09/2014 37916-QZALQMS NAIL, 6 OR MORE 08/15/2014 80389-LKEUCVR NAIL, 6 OR MORE 08/24/2016 59603-IZLPCRQ NAIL, 6 OR MORE 01/10/2017 54332-AFXZHDL NAIL, 6 OR MORE 07/11/2017 72596-YVYQYFC NAIL, 6 OR MORE 12/05/2017 28307-NBOKKRQ NAIL, 6 OR MORE 07/26/2018 03290-QNBXEPQ NAIL, 6 OR MORE 04/23/2019 81356-GAOCWYZ NAIL, 6 OR MORE 12/27/2019 36600-AWUANCY NAIL, 6 OR MORE 11/18/2014 65967-BPMYTQH NAIL, 6 OR MORE 09/11/2015 09814-VGNSADN NAIL, 6 OR MORE 02/04/2016 84568-HRRNUYT NAIL, 6 OR MORE 07/03/2020 73694-BHCRZKO NAIL, 6 OR MORE 01/28/2021 22233-RWSTCCR NAIL, 6 OR MORE 07/06/2021 63035-KVJNPHS NAIL, 6 OR MORE 01/11/2022 05637-MWTBAPT NAIL, 6 OR MORE 04/12/2022 65541-CNEGMHH NAIL, 6 OR MORE 10/19/2022 75802-XUNWKOY NAIL, 6 OR MORE 02/14/2023 08182-ISAYIAM NAIL, 6 OR MORE 05/31/2023 73764-QVHYGTR NAIL, 6 OR MORE 01/29/2024 52949-ZQMAJGF NAIL, 6 OR MORE 11/26/2010 28942-ODSDKVK NAIL, 6 OR MORE 01/28/2011 83884-ZZXEEHL NAIL, 6 OR MORE 04/01/2011 73125-XATLAHK NAIL, 6 OR MORE 06/10/2011 17448-FBCPEFL NAIL, 6 OR MORE 08/12/2011 32822-ZZSWLIY NAIL, 6 OR MORE 10/28/2011 30099-NDJEHUZ NAIL, 6 OR MORE 01/10/2012 14564-MWVTGWW NAIL, 6 OR MORE 04/24/2012 09860-ESOBQPK NAIL, 6 OR MORE 07/13/2012 41160-QHKZFGX NAIL, 6 OR MORE 11/27/2012 80948-LTCJEWW NAIL, 6 OR MORE 06/07/2013 95817-NMOSTPJ NAIL, 6 OR MORE 03/05/2013 46652-JQTVXKS NAIL, 6 OR MORE 08/23/2013 69582-ZSRSNHR NAIL, 6 OR MORE 11/05/2013 73637-VIOAFCG NAIL, 6 OR MORE 02/07/2014 04356-Mvvdjxfx Plate 02/07/2014 65696-Zmkjewuc Plate 11/05/2013 38556-Thjavbwe Plate 08/23/2013 45930-Egstxsim Plate 03/05/2013 62363-Qitrokvn Plate 06/07/2013 04097-Paavkraj Plate 11/27/2012 13512-Etojkwzg Plate 07/13/2012 35413-Ufzjotwj Plate 04/24/2012 27241-Szkkykfb Plate 01/10/2012 79121-Xxytgthh Plate 10/28/2011 86912-Gepabibh Plate 08/12/2011 64094-Qhytwctv Plate 06/10/2011 66784-Rwzvdzgs Plate 11/26/2010 85921-Xslaptzo Plate 01/28/2011 03417-Bvqknabl Plate 05/11/2021 87614-Gpslojky Plate 02/04/2016 97245-Tpgjqvhb Plate 09/11/2015 72278-Cqtqhtre Plate 11/18/2014 92638-Rvxopgjz Plate 08/15/2014 82643-Xxoitixc Plate 05/09/2014 70380-Jydqhbhs Plate 03/06/2015 71252-Gxquakcv Plate Each Additional 09/2015 28301-Rvcededq Plate Each Additional 35758-Rlvnqxpj Plate Each Additional 86028-Vljevtnw Plate Each Additional 70579-Bsdcrdug Plate Each Additional 09/2015 31838-Fwpghpyn Plate Each Additional 84219-Mlicqonj Plate Each Additional 03/2010 12346-Wwwuxioq Plate Each Additional 34565-Clbibrzc Plate Each Additional 75404-Yxxmwnxv Plate Each Additional 34843-Jvnyeqge Plate Each Additional 37514-Xgiziymz Plate Each Additional 48353-Ukdjhaco Plate Each Additional 84479-Fwjhexcp Plate Each Additional 02/2012 17558-Llmzxfdy Plate Each Additional 12/2013 14011-Hidhqrms Plate Each Additional 08/2013 93744-Fasuqqko Plate Each Additional 01/2014 22687-Fojd. Subungual Hematoma 4 82125 - Tenotomy, open flexor 03/13/2020 Next Appt Details Provider Name:Joseph Márquez , 08/05/2024 04:00:00 PM, [address], [place], [address], Insurance Providers Payer Name Payer Address Payer Phone Subscriber Number Group Number Insured Name Patient Relationship to Insured Coverage Start Date Coverage End Date [facility] [address] [place] [address] [phone] [id number] Liliana Lewis Self - patient is the insured Medical (General) History Medical History History ICD Code headaches/migraines chicken pox rheumatoid arthritis type II diabetes Surgical History Surgery Date(Month/Year) section 1996 axila sx 2012 colonoscopy 10/31/2013 hysterectomy 01/20/2015 cleaned out abscess, x2 06/2023 Hospitalization History Reason Date(Month/Year) [facility]- probable sepsis, abscess, [address] ay 06/2023 Hysterectomy 01/20/2015
== END 2024-05-27 16:43 | disposition home or self-care (01) ==
LOC: HO.HMCC 15:29
PROVIDERS: PCP Nurse Practitioner Family; Visit Provider Nurse Practitioner Family
DX: R82.90 Unspecified abnormal findings in urine (principal); E11.9 Type 2 diabetes mellitus without complications; Z00.00 Encounter for general adult medical examination without abnormal findings

== ENCOUNTER → 2024-05-27 15:28 | Outpatient (BNVA) | payer OTHER, SELFPAY | PROVIDERS: PCP Nurse Practitioner Family; Visit Provider Nurse Practitioner Family | DX: Z00.00 Encounter for general adult medical examination without abnormal findings (principal); E11.9 Type 2 diabetes mellitus without complications; R82.90 Unspecified abnormal findings in urine | CPT/HCPCS: 96127 ==

== ENCOUNTER 2024-06-29 07:58 | Outpatient (REF) | payer OTHER, SELFPAY ==
--- OUTSIDE RECORDS SUMMARY | 2024-06-29 08:02 | XMS_ITS ---
Author Organization [facility] Address [address] [place] [address] Care Team Providers Care Information Systems Supervisor Name Role Phone Darinel Connors Primary Care Provider Unav ailable Joseph Márquez Unavailable [phone] REASON FOR VISIT rs from 05/20/24 Encounters Encounter Location Date Provider Diagnosis [facility] [address] [place] [address] 05/10/2024 Joseph Márquez Plan Of Treatment Next Appt Details Provider Name:Joseph Márquez , 08/05/2024 04:00:00 PM, [address] [facility], [address], [address], Progress Notes * LEONCIOSUMAJareth NELSONGeminiOB:1974 (49 yo F)Acc No.[id number]:05/10/2024 Patient:?Liliana BURR :1975???Age:49 Y???Sex:Female Address:[address] [place], [address] * true * Date:? Generated for Cotyi miguel/Sondra/eTransmitting on:?06/29/2024 08:01 AM EDT
--- OUTSIDE RECORDS SUMMARY | 2024-06-29 08:02 | XMS_ITS | Patient Health Record ---
Author Organization [facility] Address [address] [facility] [address] Care Team Providers Care Real Estate Sales Associate Name Role Phone Darinel Connors Primary Care Provider Joseph Rivero Unavailable [phone] Allergies Allergen (clinical drug ingredient) Drug/Non Drug Allergy documented on EMR Reaction Allergy Type Onset Date Status ibuprofen Advil hives Drug Allergy Active Motrin hives Drug Allergy Active aspirin Aspirin hives Drug Allergy Active ibuprofen Ibuprofen hives Drug Allergy Active Tree Nuts Unknown Allergy Active Reason For Referral No Information Medications Medication [...] Problem Acquired hammer toe of right foot (391557563892315 5) Other hammer toe(s) (acquired), right foot (M20.41) Active confirmed Problem Acquired hammer toe of left foot (107356921530668 3) Other hammer toe(s) (acquired), left foot (M20.42) Active confirmed Problem Type 2 diabetes mellitus without complication (785276921) Type 2 diabetes mellitus without complication (E11.9) Active confirmed Vital Signs Height 5ft 3in in 01/29/2024 Weight 198 lbs 01/29/2024 BMI 35.07 kg/m2 01/29/2024 Procedures Procedure Date Ordered Date Performed Result Body Sit e 50132-CDEFOFI NAIL, 6 OR MORE 01/29/2024 N/A Encounters Encounter Location Date [facility] [address] [facility] [address] [place] [address] 01/29/2024 Joseph Márquez Pain in right toe(s) M79.674 ; Tinea unguium B35.1 ; Pain in left toe(s) M79.675 ; Type 2 diabetes mellitus without complication E11.9 ; Other hammer toe(s) (acquired), left foot M20.42 and Other hammer toe(s) (acquired), right foot M20.41 [facility] [address] [place] [address] 10/20/2023 [facility] [address] 10/20/2023 Joseph Márquez [facility] [address] [place] [address] 05/10/2024 Joseph Márquez Assessments Encounter Date Diagnosis [...] Test Name Order Date Hemoglobin A1c 11/18/2014 87062-QBLFLNM NAIL, 6 OR MORE 03/06/2015 55235-JZNZJLX NAIL, 6 OR MORE 05/09/2014 84402-EXGXPCJ NAIL, 6 OR MORE 08/15/2014 70488-MEDOYWM NAIL, 6 OR MORE 08/24/2016 65760-YVUQYFX NAIL, 6 OR MORE 01/10/2017 85703-JQTMVOZ NAIL, 6 OR MORE 07/11/2017 94773-OEUJFPS NAIL, 6 OR MORE 12/05/2017 86928-GKSNZNI NAIL, 6 OR MORE 07/26/2018 90608-GLUWNKA NAIL, 6 OR MORE 04/23/2019 19620-WIHVJMG NAIL, 6 OR MORE 12/27/2019 10635-LVBIAEF NAIL, 6 OR MORE 11/18/2014 43449-YCYEFRH NAIL, 6 OR MORE 09/11/2015 70428-TXHQPYX NAIL, 6 OR MORE 02/04/2016 46779-UBZPOJG NAIL, 6 OR MORE 07/03/2020 90391-ZDCFMAH NAIL, 6 OR MORE 01/28/2021 69653-FBWRTWT NAIL, 6 OR MORE 07/06/2021 25807-BGZZFDL NAIL, 6 OR MORE 01/11/2022 85912-LCTGQFL NAIL, 6 OR MORE 04/12/2022 97005-HEITWDY NAIL, 6 OR MORE 10/19/2022 49242-WHPRNGL NAIL, 6 OR MORE 02/14/2023 49297-AUTDHCC NAIL, 6 OR MORE 05/31/2023 89166-APNMCWB NAIL, 6 OR MORE 01/29/2024 53887-JUAGORM NAIL, 6 OR MORE 11/26/2010 35362-LHMKIBO NAIL, 6 OR MORE 01/28/2011 05128-LZLCFTJ NAIL, 6 OR MORE 04/01/2011 70419-PMKEGSE NAIL, 6 OR MORE 06/10/2011 68703-ETUHQFQ NAIL, 6 OR MORE 08/12/2011 31080-RTHSSXM NAIL, 6 OR MORE 10/28/2011 11612-TALVUBY NAIL, 6 OR MORE 01/10/2012 91701-FNWQPJH NAIL, 6 OR MORE 04/24/2012 32933-LWCTIUW NAIL, 6 OR MORE 07/13/2012 36101-YKEPZEY NAIL, 6 OR MORE 11/27/2012 50397-HJPBHIC NAIL, 6 OR MORE 06/07/2013 68122-JEBGCKO NAIL, 6 OR MORE 03/05/2013 88872-LRDXBNC NAIL, 6 OR MORE 08/23/2013 61975-HWDCCFO NAIL, 6 OR MORE 11/05/2013 22355-EUXHJCC NAIL, 6 OR MORE 02/07/2014 65622-Fhjwjxor Plate 02/07/2014 39546-Gavpbdrr Plate 11/05/2013 29180-Xnbmcxsw Plate 08/23/2013 56284-Fwjzmuun Plate 03/05/2013 95030-Ggybbuzc Plate 06/07/2013 10830-Pzpgweuf Plate 11/27/2012 56702-Ixrxfsco Plate 07/13/2012 08218-Sndingiq Plate 04/24/2012 96825-Ptdbdmmc Plate 01/10/2012 78518-Jooyhctc Plate 10/28/2011 13632-Aqsmcvgk Plate 08/12/2011 19410-Rpxxozqf Plate 06/10/2011 95206-Vignnckt Plate 11/26/2010 42730-Qfkeidul Plate 01/28/2011 60537-Fkzakkzd Plate 05/11/2021 10777-Uviycsxz Plate 02/04/2016 50442-Dnmgszzh Plate 09/11/2015 03914-Jvwzgcoq Plate 11/18/2014 67897-Osnuklyd Plate 08/15/2014 28144-Qepajgkc Plate 05/09/2014 67838-Pnwhedxe Plate 03/06/2015 83279-Zpynbagm Plate Each Additional 09/2015 08327-Axdrocqa Plate Each Additional 76811-Ugqehiks Plate Each Additional 74014-Yfrzuked Plate Each Additional 14385-Jslngond Plate Each Additional 09/2015 16048-Ldxzbcpe Plate Each Additional 20209-Xfcgdgpt Plate Each Additional 03/2010 69672-Cpowkwel Plate Each Additional 57091-Svhzdish Plate Each Additional 62390-Frzhvzsk Plate Each Additional 77996-Bhuzubsd Plate Each Additional 21569-Hajnivft Plate Each Additional 57750-Sdmopnqa Plate Each Additional 77407-Dizpzaqy Plate Each Additional 02/2012 35979-Jchueogf Plate Each Additional 12/2013 07886-Ycszoldu Plate Each Additional 08/2013 69593-Aaucuhrq Plate Each Additional 01/2014 62571-Cbqx. Subungual Hematoma 4 14500 - Tenotomy, open flexor 03/13/2020 Next Appt Details Provider Name:Joseph Márquez , 08/05/2024 04:00:00 PM, [address] , [address], [place], [address], Insurance Providers Payer Name Payer Address Payer Phone Subscriber Number Group Number Insured Name Patient Relationship to Insured Coverage Start Date Coverage End Date [facility] [address] [place] [address] [id number] Liliana Lewis Self - patient is the insured Medical (General) History Medical History History ICD Code headaches/migraines chicken pox rheumatoid arthritis type II diabetes Surgical History Surgery Date(Month/Year) section 1995 axila sx 2012 colonoscopy 10/31/2013 hysterectomy 01/20/2015 cleaned out abscess, x2 06/2023 Hospitalization History Reason Date(Month/Year) [facility]- probable sepsis, abscess, [address] ay 06/2023 Hysterectomy 01/20/2015
--- OUTSIDE RECORDS SUMMARY | 2024-06-29 08:02 | XMS_ITS ---
Author Organization [facility] Address [address] [facility] [place] [address] Care Team Providers Care Pocket Marker Name Role Phone Darinel Connors Primary Care Provider Unav ailable Joseph Márquez Unavailable [phone] Allergies Allergen (clinical drug ingredient) Drug/Non Drug [...] Ordered Date Performed Result Body Sit e 28486-CZRDETG NAIL, 6 OR MORE 01/29/2024 N/A Encounters Encounter Location Date Provider Diagnosis [facility] [address] [address] 01/29/2024 Joseph Márquez Pain in right toe(s) [...] INSTRUCTIONS.pdf) Pending Test Test Name Order Date 34884-YFWVOUE NAIL, 6 OR MORE 01/29/2024 Next Appt Details Follow Up: prn, Reason: Provider Name:Joseph Márquez , 08/05/2024 04:00:00 PM, [address] [facility], [address], [place], [address], Procedure Notes * Category Sub-Category Detail Notes [...] use of a nail nipper and/or dremel-type lap grinder, to a more viable healthy nail plate [...] to maintain effectiveness in symptomatic relief - 12112 Progress Notes * Leah BURROB:1974 (48 yo F)Acc No.[id number]:01/29/2024 Progress Note Patient:?Liliana BURR Provider:?Joseph Márquez DPM :1975???Age:48 Y???Sex:Female D ate:01/29/2024 Address:[address] [place] [address], [address] [id number] Pcp:STARR Anders Subjective: * Chief Complaints: * [...] 1. ?Exercise: no. ?Marital status: . ?Occupation: [employer]. * Medications:?TakingActemra V itamin D , Notes [...] Management (4)??? Plan: * Treatment: 2.?Tinea unguium?Procedure: 69994-NRWZEOR NAIL, 6 OR MORE * Procedures:?Debride Nail [...] use of a nail nipper and/or dremel-type lap grinder, to a more viable healthy nail plate [...] to maintain effectiveness in symptomatic relief - 24568.? * Procedure Codes:?67587 DEBRI DE NAIL, 6 OR MORE * [...] Márquez DPM Date:?2023 Generated for Tracey rivera/Sondra/Jamar on:?06/29/2024 08:01 AM EDT History and Physical Notes * HPI [...]
[2024-06-29 12:07] LABS: Appearance Urine Clear; Color Urine Yellow; Glucose Urine UA >=1000 mg/dL (Negative); Leukocyte Esterase Urine Negative (Negative); Nitrite Urine Negative (Negative); PH 5.5 (5.0-9.0); Specific Gravity - Urine >= 1.030 (1.005-1.025); UMIC TRIGGER UACC YES; Urine Blood Negative (Negative); Urine Ketones Negative (Negative); Urine Protein Negative (Neg-Trace)
[2024-06-29 12:30] LABS: Bacteria Urine Trace (None Seen); Hyaline Casts Urine 0-2 /LPF (0-2); RBC Urine 0-2 /HPF (0-2); WBC Urine 0-5 /HPF (0-5)
[2024-06-29 12:59] LABS: Creatinine Urine 42.91 mg/dL; Microalbumin Urine < 5.0 mg/L
== END 2024-06-29 07:59 | disposition home or self-care (01) ==
LOC: HO.HMGCLDS 07:58
PROVIDERS: PCP Nurse Practitioner Family; Visit Provider Nurse Practitioner Family
DX: E11.9 Type 2 diabetes mellitus without complications (principal); R82.90 Unspecified abnormal findings in urine
CPT/HCPCS: 81001; 81003; 82043; 82570; 87086

== ENCOUNTER 2024-09-11 13:55 | Outpatient (AMB) | payer OTHER, SELFPAY ==
--- OUTSIDE RECORDS SUMMARY | 2024-05-20 11:45 | XMS_ITS ---
Author Organization [facility] Address [address] [facility] [address] Care Team Providers Care Flavoring Maker Name Role Phone Darinel Connors Primary Care Provider Unav ailable Joseph Márquez Unavailable [phone] Encounters Encounter Location Date Provider Diagnosis [address] [address] 05/20/2024 Joseph Márquez Plan Of Treatment Next Appt Details Provider Name:Joseph Márquez , 12/16/2024 04:00:00 PM, [address] [place] [address], [place], [address], Progress Notes * LENOLiliana LDOB:[birth year] (49 yo F)Acc No.[id number]:05/20/2024 Progress Note Patient: Liliana ACOSTA Provider: Dewey Márquez DPM :1975 A ge:49 Y S ex:Female Date:05/20/2024 [address] [place] Pcp:STARR Anders Subjective: * Chief Complaints: * * Medical History: Objective: * Vitals: Assessment: Plan: * Treatment: * Images: * The named appointment provid er may or may not be the originator of this progress note, and it is not deemed complete until electronically signed by the appointment provider. Sign off status: Pending * Provider: Dewey Márquez DPM Date: 0 05/20/2024 Generated for Tracey rivera/Sondra/Jamar on: 0 09/11/2024 02:46 PM EDT
[2024-09-11 14:08] VITALS: BP 120/64; PULSE 69; RESP 16; TEMP 36.8; O2SAT 98; BMI 35.4
--- NOTE | 2024-09-11 14:08 | A.OFFPC_ITS ---
Vital Signs 09/11/24 14:08 Height 5 ft 4 in Weight 206 lb BMI 35.4 BP 120/64 Blood Pressure Location Rt brachial Position Sitting Respiration 16 Pulse 69 Pulse Source Pulse Oximeter Temp 98.3 F Temp Source Oral Pulse Oximetry (%) 98 Oxygen Delivery Method Room Air Intake Visit Reasons: 4m f/u-inactive insurance a1c needed Inside Sales Coordinator Required: No Accompanied by: Self / Same As Patient Allergies nut - unspecified (nut) Allergy (Intermediate, Verified 09/11/24 14:09) HIVES aspirin (ASPIRIN) Allergy (Unknown, Verified 09/11/24 14:09) ORAL HIVES, hives ibuprofen (IBUPROFEN) Allergy (Unknown, Verified 09/11/24 14:09) ORAL HIVES, hives peanut Allergy (Unknown, Verified 09/11/24 14:09) hives tree nut Allergy (Unknown, Verified 09/11/24 14:09) hives lisinopril (LISINOPRIL) Adverse Reaction (Unknown, Verified 09/11/24 14:09) DIFFICULTY BREATHING COUGH, cough methotrexate Adverse Reaction (Unknown, Verified 09/11/24 14:09) LFTs elevated Tobacco use date assessed: 09/11/24 Dental Screening Dental Screen Date: 09/11/24 Did you have a dental visit in the last 12 months?: Yes Did you have a dental problem in the last 6 months where you did not have access to dental care?: No Was dental information given to patient?: Patient has dentist HPI 4m f/u-inactive insurance a1c needed HPI Details Chief Complaint The patient presents for follow-up management of diabetes mellitus. History of Present Illness The patient is a 49-year-old female presenting with follow-up for diabetes management. Her hemoglobin A1c has improved to 8.0 from a previously higher value, although the exact prior value is not documented. She reports her morning blood glucose levels are approximately 110 mg/dL, indicating better glycemic control. The patient denies any symptoms of neuropathy and has a positive sensation with monofilament testing on the second toes' dorsal aspect. She has healed blisters on her toes with no signs of infection, and her eye exam and microalbumin test are current. The patient is currently on Trulicity, which will be increased from 1.5 mg to 3 mg to further improve glycemic control. She is also taking methotrexate, and all other medications will be continued as prescribed. Social History Health Maintenance - Eye exam is up to date - Microalbumin test is up to date Review of Systems - Neurological: Denies neuropathy Physical Exam General: Cooperative, healthy appearing, comfortable, no acute distress and well developed Orientation: Patient oriented x3 Limitations: No limitations Head: Normal to inspection Ears: Hearing grossly normal bilaterally Nose: Normal external nose present Face and sinus: Normal facial exam Eyes: Appearance normal, both eyes and all related structures Neck: Normal visual inspection and Yes full ROM Respiratory: Normal respiratory effort and able to speak in complete sentences. Clear to auscultation bilaterally Cardiovascular: Regular rate and rhythm. Normal S1 and S2 GI: Normal to inspection. Soft to palpation and nontender Skin: No rashes or lesions noted Neuro: Patient oriented x3 Extremities: Normal to inspection, positive sensation with use of monofilament on second toes dorsal aspect, blisters that are healed, no signs of infection Results - Labs: Hemoglobin A1c is 8.0 Plan The plan for managing the patient's diabetes includes increasing the dosage of Trulicity from 1.5 mg to 3 mg to enhance glycemic control. The patient is advised to continue all other medications as prescribed, including methotrexate. She is encouraged to maintain regular follow-ups and to have laboratory tests conducted in the near future to monitor her condition. Discussion Notes During the visit, we discussed the importance of maintaining glycemic control and the decision to increase Trulicity to 3 mg. I advised the patient to continue her current medications and emphasized the need for regular follow-ups and laboratory tests to monitor her diabetes management. Patient Instructions - Increase Trulicity dosage to 3 mg as d irected. - Continue all other medications as pres cribed. - Schedule regular follow-up appointment s. - Get laboratory tests done [facility] to [facility]. [facility] Medical History Hidradenitis suppurativa Ear infection Osteoarthritis Dyslipidemia Tinea unguium Lymphocytosis Rheumatoid arthritis HTN (hypertension) Surgical History History of endometrial biopsy History of axillary surgery H/O total hysterectomy with bilateral salpingo-oophorectomy (BSO) History of section Family History Father Colon cancer Diabetes mellitus HTN (hypertension) Mother Diabetes mellitus Daughter No problems noted. 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 1. Little interest or pleasure in doing things: several days 2. Feeling down, depressed, or hopeless: several days 3. Trouble falling or staying asleep, or sleeping too much: several days 4. Feeling tired or having little energy: several days 5. Poor appetite or overeating: not at all 6. Feeling bad about yourself - or that you are a failure or have let yourself or your family down: several days 7. Trouble concentrating on things, such as reading the newspaper or watching television: several days 8. Moving or speaking so slowly that other people could have noticed. Or the opposite - being so fidgety or restless that you have been moving around a lot more than usual: not at all 9. Thoughts that you would be better off or of hurting yourself in some way: not at all Total score: 6 Depression Screening Interpretation: Negative Depression Screening Done: Yes 16326 - PHQ-9 Billing: Yes Source: Developed by Drs. Papa Mathews, Jennifer Hyatt, Ricky Carrasco and colleagues, with an educational alex from [employer]. Thrive Questionnaire Date Thrive assessed: 05/20/24 I am a: Patient What is your living situation today?: I have a steady place to live Within the past 12 months, did the food you bought not last and you didn't have the money to get more?: Never true Within the past 12 months, did you worry whether your food would run out before you got money to buy more?: Never true Do you have trouble paying for medicines?: No Do you have trouble getting transportation to medical appointments?: No Do you have trouble paying your heating and electricity bill?: No Do you have trouble taking care of your child, family member or friend?: No Do you have trouble with day-to-day activities such as bathing, preparing meals, shopping, managing finances, etc.?: No Are you currently unemployed and looking for a job?: No Are you interested in more education?: No Please select the resources that you would like help with: None Currently or been in a relationship where the following occur: No concerns reported THRIVE Score: 0 MILKA-7 AMB Questionnaire MILKA-7 Date MILKA - 7 assessed: 05/27/24 Feeling nervous, anxious, or on edge: 1 = Several days Not being able to stop or control worryin = Several days Worrying too much about different things: 1 = Several days Trouble relaxin = Several days Being so restless that it is hard to sit still: 1 = Several days Becoming easily annoyed or irritable: 1 = Several days Feeling afraid as if something awful might happen: 0 = Not at all Total MILKA-7 score (0-4 normal; 5-9 mild; 10-14 moderate; 15-21 severe): 6 Source: Developed by Drs. Papa Mathews, Jennifer Hyatt, Ricky Carrasco and colleagues, with an educational alex from [employer]. MILKA-7 Assessment Billing MILKA-7 Assessment Tool: MILKA-7 Assessment 12845 (denies any si or hi) Physical exam (Primary Care) Vital Signs: Last Vital Signs Temp 98.3 F 09/11/24 14:08 Pulse 69 09/11/24 14:08 Resp 16 09/11/24 14:08 BP 120/64 09/11/24 14:08 Pulse Ox 98 09/11/24 14:08 Oxygen Delivery Method Room Air 09/11/24 14:08 BMI result Body Mass Index 35.4 Tobacco/Smoking Status: Tobacco use Status Tobacco use date assessed 09/11/24 09/11/24 14:17 Patient Tobacco Use Status Current someday Tobacco 09/11/24 14:17 Tobacco use type Cigarette 09/11/24 14:17 e-Cigarette/Vaping Use Never Used 09/11/24 14:17 PHQ-9: PHQ-9 Score PHQ-9: Total score 6 09/11/24 14:17 Depression Screening Interpretation: Negative Thrive Assessment: Date of Thrive Assessment Date Thrive assessed 05/20/24 09/11/24 14:17 Currently or been in a relationship where the following occur: No concerns reported Coding Level of Care Code Est Pt Level 3 (67853) Diagnoses Diabetes E11.9 Vitamin D deficiency E55.9 Additional Codes MILKA-7 Assessment Billing - MILKA-7 Assessment Tool: MILKA-7 Assessment 45270 ([id number]) PHQ-9 - 51226 - PHQ-9 Billing: Yes ([id number]) Assessment & Plan Assessment & Plan (1) Diabetes: Code(s): E11.9 - Type 2 diabetes mellitus without complications Category: Medical (2) Vitamin D deficiency: Code(s): E55.9 - Vitamin D deficiency, unspecified Category: Medical Plan . Orders: Orders TSH reflex Free T4 Today E11.9 - Type 2 diabetes mellitus without complications UA CC w/rflx Micro + Cult Today E11.9 - Type 2 diabetes mellitus without complications Vitamin D 25-OH Total Today E11.9 - Type 2 diabetes mellitus without complications, E55.9 - Vitamin D deficiency, unspecified Hemoglobin A1c Today E11.9 - Type 2 diabetes mellitus without complications Complete Blood Count Auto Diff Today E11.9 - Type 2 diabetes mellitus without complications Comprehensive [place]. Panel Fast Today E11.9 - Type 2 diabetes mellitus without complications Lipid Panel Today E11.9 - Type 2 diabetes mellitus without complications AMB Hemoglobin A1c Today Z13.9 - Encounter for screening, unspecified Medications: Changed From dulaglutide (Trulicity) 1.5 mg (0.5 mL) subcut QWEEK 6 mL 1RF To dulaglutide 3 mg (0.5 mL) subcut QWEEK 2 mL 1RF
--- OUTSIDE RECORDS SUMMARY | 2024-09-11 14:46 | XMS_ITS | Patient Health Record ---
Author Organization [facility] Address [address] [place] [address] Care Team Providers Care Doughnut Fryer Name Role Phone ED [place] Primary Care Provider Papa Paul Unavailable [phone] Allergies Allergen (clinical drug ingredient) Drug/Non Drug Allergy documented on EMR Reaction Allergy Type Onset Date Status lisinopril Lisinopril Unknown Drug Allergy Activ e aspirin Aspirin Unknown Drug Allergy Active nuts (uncoded) Unknown Allergy Activ e Reason For Referral No Information Medications Medication SIG (Take, Route, Frequency, Duration) Notes Start Date End Date Status Glucosamine 1500 mg 1 capsule with a antonia l Orally twice a day Active Irbesartan 150 MG times 2 Oral Once a day Active metFORMIN HCl ER 500 MG TK 4 TS PO QD Or al for 30 Active Enbrel SureClick 50 MG/ML INJECT 50MG SUBCUTANEOUSLY ONCE Q WEEK Subcutaneous for [address] 500 MG TK 1 T PO BID WF Ora l for 30 Not-Taking Chlorthalidone 25 MG TK 1 T PO QD IN THE MORNING WF Oral for 30 Active Multi Vitamin/Minerals Orally 07/18/2013 Active Atorvastatin Calcium 40 MG 1 tablet Orally Once a day for 30 day(s) Active Wellbutrin XL 300 MG 1 tablet in the mor marco Orally Once a day for 30 day(s) Active Aleve 220 MG 2 tablet with food o r milk as needed Orally every 12 hrs Active Invokana 300 MG 1 tablet before the first meal of the day Orally Once a day for 30 day(s) Active Melatonin Active Trulicity 1.5 MG/0.5ML as directed Subcutaneous Active Immunizations Vaccine Route Administration Date Status Comme nts Influenza Unknown 10/28/2018 Administered Social History Tobacco Use: Social History Observation Description Date Details (start date - stop date) Current Smoker NA - NA Tobacco Use/Smoking Question Answer Notes Patient is a current smoker How many cigarettes a day do you smoke? 6-10 Section Notes: Occasional smoking; no sig a lcohol Occasional smoking; no sig a lcohol Problems Problem Type SNOMED Code ICD Code Onset Dates Problem Status W/U Status Risk Notes Problem 121087569 Encounter for screening for malignant neoplasm of colon (Z12.11) Active confirmed Problem [id number] Preprocedural examination (Z01.818) Active confirmed Problem [id number] Family history o f colon cancer (Z80.0) Active confirmed Plan Of Treatment Future Test Test Name Order Date COLONOSCOPY 07/18/2013 COLONOSCOPY 06/04/2019 Insurance Providers Payer Name Payer Address Payer Phone Subscriber Number Group Number Insured Name Patient Relationship to Insured Coverage Start Date Coverage End Date [employer] [place] [address] [address] [place] [address] [id number] KARMA DELEON Self - patient is the insured Medical (General) History Medical History History ICD Code NIDDM Hypertension Denies AK,CVA,Lung disease,renal disease Rheumatoid arthritis Sleep apnea--not using CPAP Screening colonoscopy in Oct with only a hyperplastic polyp removed Surgical History Surgery Date(Month/Year) 1995 Right and left axilla-hydradenitis
== END 2024-09-11 14:47 | disposition home or self-care (01) ==
LOC: HO.HMCC 13:56
PROVIDERS: PCP Nurse Practitioner Family; Visit Provider Nurse Practitioner Family
DX: E11.9 Type 2 diabetes mellitus without complications (principal); E55.9 Vitamin D deficiency, unspecified; Z13.9 Encounter for screening, unspecified

== ENCOUNTER → 2024-09-11 13:55 | Outpatient (BNVA) | payer SELFPAY | PROVIDERS: PCP Nurse Practitioner Family; Visit Provider Nurse Practitioner Family | DX: E11.9 Type 2 diabetes mellitus without complications (principal); E55.9 Vitamin D deficiency, unspecified; Z79.899 Other long term (current) drug therapy | CPT/HCPCS: 83036; 96127 ==